=== PATIENT | female | born 1945 | race Caucasian/White ===

== ENCOUNTER 2018-04-12 07:49 | Inpatient (IN) ==
[2018-04-12] MEDS ORDERED: fentaNYL Citrate Inj 250 MCG/5 ML Ampul ONE (08:15)
[2018-04-12 08:52] LABS: Activated Partial Thrombo Time 25.7 sec (24.3-30.1); Prothrombin Time 10.5 sec (9.8-11.6)
[2018-04-12] MEDS ORDERED: fentaNYL Citrate Inj 100 MCG/2 ML Ampul ONE (11:07)
--- NOTE | 2018-04-12 11:16 | P.RAD ---
Post CT Procedure Prog Note - Pre Procedure Diagnosis (1) Mass of right lung - Post Procedure Diagnosis (1) Mass of right lung - Procedure Information Supervising Radiologist: Brice Nichols MD Anesthesia: Local, Conscious Sedation - Plan of Activity Patient to Unit: [facility] Patient condition: Good See PACS Report for procedural detail/treatment. Biopsy CT right Lung Specimen: Core Biopsy Findings: Moderate right pneumothorax post lung biopsy Plan: Chest tube placement per IR
--- NOTE | 2018-04-12 11:26 | P.RAD ---
Post Procedure Progress Note - Pre Procedure Diagnosis (1) Pneumothorax, post biopsy, right - Post Procedure Diagnosis (1) Pneumothorax, post biopsy, right - Procedure Information Procedure Date: 04/12/18 Supervising Radiologist: Juan Pablo Morales Jr, MD Estimated blood loss (mL): 0 Anesthesia: Conscious Sedation - Plan of Activity Patient to Unit: ROPU Patient Condition: Good See PACS Report for procedural detail/treatment. Drainage Procedure Fluoroscopy right Chest Tube Non-Tunneled Drainage: Pleurovac Findings: Large right sided pneumothorax following biopsy. Successful chest tube placement.
--- NOTE | 2018-04-12 11:39 | CT ---
EXAM DATE: 04/12/2018 11:10 AM EDT AGE/SEX: 72 years / Female INDICATIONS: Right lung mass CLINICAL DATA: This is the patient's initial encounter. Patient reports that signs and symptoms have been present for 1 day and indicates a pain score of 0/10. MEDICAL/SURGICAL HISTORY: Chronic obstructive pulmonary disease. Hypertension. Hysterectomy. COMPARISON: [facility], CHEST TUBE PLACEMENT W FL RT, 04/12/2018. . SEDATION TIME (min): 30 MIN BIOPSY SITE: Right lung MEDICATION(S): 4.5 midazolam (Versed) IV 225 fentanyl (Sublimaze) IV DEVICE(S): 20 gauge BARD biopsy needle 19 gauge Introducer One . . PROCEDURE: CT guided Right lung biopsy Prior to the procedure informed consent was obtained. Any appropriate prior imaging studies were rev iewed. Using automated exposure control and adjustment of the mA and/or kV according to patient size , radiation dose was kept as low as reasonably achievable to obtain optimal diagnostic quality images . DICOM format image data is available electronically for review and comparison. The site was prepped in a sterile fashion. Full sterile technique was used, including cap, mask, thu rile gloves and gown and a large sterile sheet. Hand hygiene and 2% chlorhexidine and/or betadine/al cohol prep was utilized per protocol for cutaneous antisepsis. The skin and subcutaneous tissues wer e infiltrated with local anesthetic solution. With CT guidance the previously identified target was localized. Biopsy was performed using the presc ribed needle as above. Adequate hemostasis was obtained with compression at the puncture site. Follow-up CT scan reveals no pneumothorax. Conscious sedation was performed with the prescribed dosages and duration as above in the presence of an independent trained radiology nurse to assist in the monitoring of the patient. EKG and oximetry remained stable throughout the procedure. The patient tolerated the procedure well and there were no complications. The patient was sent to Radiology Outpatient Unit in stable condition. FINDINGS: Postbiopsy scan of the right lung demonstrates a moderate-sized pneumothorax. CONCLUSION: 1. CT-guided biopsy of a right lung mass completed. 2. Moderate-sized pneumothorax noted following biopsy. 3. Chest tube placement arranged with interventional radiology. Electronically signed by: Brice Nichols MD 04/12/2018 11:38 AM EDT
[2018-04-12] MEDS ORDERED: HYDROmorphone PF Inj 2 MG/ML Vial ONE (11:55)
--- NOTE | 2018-04-12 12:18 | XR ---
EXAM DATE: 04/12/2018 12:03 PM EDT AGE/SEX: 72 years / Female INDICATIONS: Post right lung biopsy CLINICAL DATA: This is the patient's subsequent encounter. Patient reports that signs and symptoms h ave been present for 1 day and indicates a pain score of 0/10. MEDICAL/SURGICAL HISTORY: Hypertension. Chronic obstructive pulmonary disease. None. COMPARISON: [facility] [place], CT BIOPSY LUNG RIGHT, 04/12/2018. . FINDINGS: Status post placement of a right-sided chest tube. The chest tube is located in the right upper hemit horax. The previously noted pneumothorax has resolved. There is subcutaneous emphysema along the righ t chest wall. The left lung is grossly clear. CONCLUSION: Right-sided chest tube in place. No significant pneumothorax. Electronically signed by: Mark Polk MD 04/12/2018 12:17 PM EDT
--- NOTE | 2018-04-12 14:14 | IR ---
EXAM DATE: 04/12/2018 11:41 AM EDT AGE/SEX: 72 years / Female INDICATIONS: Patient presents with right side pneumothorax following lung biopsy and in need of ches t tube placement. CLINICAL DATA: This is the patient's initial encounter. Patient reports that signs and symptoms have been present for 1 day and indicates a pain score of 0/10. MEDICAL/SURGICAL HISTORY: . [id number] . Cataracts Hysterectomy COMPARISON: [facility], CHEST EXPIRATION ONLY, 04/12/2018. . FLUORO TIME (min): 1.10 IMAGE SERIES: 2 ACCESS SITE: SEDATION TIME (min): 15 MEDICATION(S): 2 mg midazolam (Versed) IV 100 mcg fentanyl (Sublimaze) IV DEVICE(S): 10 Welsh non-locking catheter 30 cm Kaye . . PROCEDURE: 1. Fluoroscopically guided chest tube placement. 2. Conscious sedation with continuous EKG and oximetry monitoring. The risks, benefits and alternatives to the procedure were explained and verbal and written consent w as obtained. The site was prepped in sterile fashion. Full sterile technique was used, including ca p, mask, sterile gloves and gown and a large sterile sheet. Hand hygiene and 2% chlorhexidine and/or betadine/alcohol prep was utilized per protocol for cutaneous antisepsis. The skin and subcutaneous tissues were infiltrated with local anesthetic solution. With fluoroscopic guidance the chest was punctured between the first and second interspace and the pr escribed catheter was placed in the lung apex. Wall suction was applied. Post procedure images demon strate satisfactory position of the tube. The catheter was sutured in place and a Percu-Stay was carli lied. Conscious sedation was performed with the prescribed dosages and duration as above in the presence of an independent trained radiology nurse to assist in the monitoring of the patient. EKG and oximetry remained stable throughout the procedure. The patient tolerated the procedure well and there were n o complications. The patient was sent to post anesthesia recovery in stable condition. CONCLUSION: 1. Uncomplicated chest tube placement as above. Electronically signed by: Juan Pablo Morales MD 04/12/2018 2:13 PM EDT
--- NOTE | 2018-04-12 15:32 | P.CONIM ---
History of Present Illness Primary Care Provider: Cristofer Carrion MD History of Present Illness: Mrs. Mcclelland is a 72-year-old female. She is at the hospital today after undergoing a lung biopsy for a lung mass. Post lung biopsy she developed a pneumothorax and has had a right-sided chest tube placed. Her primary complaint when seen his pain. No other complaints at this time. She is not nauseous. She has a past history of smoking in the past history of lupus. Other medical conditions include COPD, hypertension, and hypothyroidism. Review of Systems Constitutional: Denies body ache(s), Denies chills, Denies night sweats Eyes: Denies blind spots, Denies blurry vision, Denies change in vision Ears, Nose, Mouth, and Throat: Denies abnormal hearing, Denies bleeding gums, Denies change in voice Cardiovascular: Reports chest pain, Denies fainting, Denies rapid, pounding, or irregular heartbeat Comments: Chest pain is related to right-sided chest tube. Respiratory: Denies cough, Denies shortness of breath, Denies wheezing Gastrointestinal: Denies abdominal pain, Denies bloating, Denies bright, red blood in stools Musculoskeletal: Denies abnormal walking, Denies back pain, Denies body aches Skin/Breast: Denies rash, Denies skin pain, Denies skin ulcer Neurologic: Denies abnormal hearing, Denies abnormal movements, Denies abnormal speech PMFSH - History History Provided By: Patient - Medical History Medical History: Medical History (Last Updated 04/12/18 @ 08:42 by Yuliet Estrella RN) COPD (chronic obstructive pulmonary disease) DVT (deep venous thrombosis) HTN (hypertension) Hypothyroid Lupus - Surgical History Surgical History: Surgical History (Last Updated 04/12/18 @ 08:28 by Yuliet Estrella RN) H/O hysterectomy with oophorectomy H/O lumbar discectomy - Family History Family History: Family History (Last Updated 04/12/18 @ 15:27 by Indra Bhatia MD) Father Myocardial infarction - Travel History Recent Travel in the [place] Within the Last 8 Weeks: No Recent Travel Out of the Country Within the Last 8 Weeks: No Medications and Allergies Active Medications: Active Medications Sodium Chloride (Ns Inj) 1,000 mls @ 30 mls/hr IV.SIG .Q24H KIMBER Morphine Sulfate (Morphine Inj) 2 mg IV.PUSH Q4H PRN PRN Reason: PAIN SCALE 3 TO 5 Morphine Sulfate (Morphine Inj) 4 mg IV.PUSH Q4H PRN PRN Reason: PAIN SCALE 6 TO 10 Allergies Allergy/AdvReac Type Severity Reaction Status Date / Time No Known Allergies Allergy Verified 04/12/18 08:12 Home Medications Medication Instructions Recorded Confirmed Type amlodipine [Norvasc] 5 mg PO DAILY 04/12/18 04/12/18 History hydroxychloroquine 200 mg PO BID 04/12/18 04/12/18 History levothyroxine 50 mcg PO DAILY 04/12/18 04/12/18 History losartan-hydrochlorothiazide 1 tab PO DAILY 04/12/18 04/12/18 History Exam Vital signs: Vital Signs 04/12/18 08:05 04/12/18 11:30 04/12/18 11:45 Temperature 97.8 F 97.7 F Pulse Rate 89 95 H 90 Respiratory Rate 18 16 20 Blood Pressure 145/88 H 127/91 H 111/75 Pulse Oximetry 92 L 93 L 93 L 04/12/18 12:15 04/12/18 12:45 04/12/18 13:15 Temperature Pulse Rate 88 82 75 Respiratory Rate 20 18 20 Blood Pressure 113/78 119/80 118/75 Pulse Oximetry 95 96 94 L 04/12/18 14:06 Temperature Pulse Rate 76 Respiratory Rate 18 Blood Pressure 125/78 Pulse Oximetry 94 L Intake & Output 04/11/18 04/12/18 04/12/18 18:59 06:59 18:59 Weight 52.617 kg Other: Weight On Admission 52.617 kg Narrative: GENERAL: NAD, A&Ox3 HEAD: Normocephalic. NECK: Supple, trachea midline. No lymphadenopathy. EYES: No scleral icterus. No injection or drainage. CARDIOVASCULAR: Regular rate and rhythm without murmurs, gallops, or rubs. RESPIRATORY: Breath sounds equal bilaterally. No accessory muscle use. Limited excursion due to pain. Right-sided chest tube is present. GASTROINTESTINAL: Abdomen soft, non-tender, nondistended. MUSCULOSKELETAL: No cyanosis, or edema. SKIN: Warm and dry. NEURO: No focal neurological deficits. Results - Labs Labs: Laboratory Results - last 24 hr 04/12/18 08:20 PT 10.5 INR 1.0 APTT 25.7 - Imaging Impressions Chest Tube Insertion 04/12/18 00:00 CONCLUSION: 1. Uncomplicated chest tube placement as above. Lung Biopsy CT 04/12/18 08:28 CONCLUSION: 1. CT-guided biopsy of a right lung mass completed. 2. Moderate-sized pneumothorax noted following biopsy. 3. Chest tube placement arranged with interventional radiology. Chest X-Ray 04/12/18 11:21 CONCLUSION: Right-sided chest tube in place. No significant pneumothorax. Assessment and Plan - Assessment (1) Mass of right lung Code(s): R91.8 - Other nonspecific abnormal finding of lung field Status: Acute (2) Pneumothorax, post biopsy, right Code(s): J95.811 - Postprocedural pneumothorax Status: Acute - Plan 72-year-old female admitted secondary to pneumothorax with right-sided lung mass Right-sided pneumothorax Right sided lung mass Patient is status post biopsy Chest tube is in place Morphine IV for pain Monitor oxygenation Monitor respirations and follow-up x-ray in 1-2 days COPD No exacerbation Relatively stable at baseline Follow clinically Albuterol as needed Lupus Continue baseline treatment Hypothyroidism Continue Synthroid Follows an outpatient History of pulmonary embolism 2 Lovenox Hypertension Continue baseline treatment Follow blood pressures Adjust treatments as needed DVT Prophylaxis Lovenox
[2018-04-12] MEDS ORDERED: Morphine Inj 4 MG/ML Vial IV.PUSH PRN (15:45)
[2018-04-12] MEDS: Morphine Inj 4 MG/ML Vial IV.PUSH PRN ×3 (16:15→23:55)
[2018-04-12] MEDS: Sod Chloride 0.9% Inj 1,000 ML IV.SIG SCH (16:17)
[2018-04-12] MEDS: Hydroxychloroquine 200 MG Tablet PO SCH (20:00)
--- NOTE | 2018-04-13 01:46 | MB ---
cc: Werner Kang MD DATE: 04/12/2018 REASON FOR CONSULTATION: The patient with bilateral pulmonary lesions, who was brought to interventional radiology for biopsy of the lung lesion and subsequently has developed pneumothorax. She is being admitted to the hospital for observation. HISTORY OF PRESENT ILLNESS: This is a 72-year-old female who was seen in the oncology clinic approximately 2 weeks ago for evaluation of bilateral lung lesions. She has a history of tobacco abuse with greater than [id number], COPD, hypertension, hypothyroidism. She had undergone a CT scan of the chest with contrast on 03/11/2018 and was found to have a lobulated nodule in the right upper lobe, which was approximately 2 x 1.9 cm. There was a second spiculated lesion in the superior segment of the left lower lobe, which was suspicious for bronchogenic carcinoma. There were additional pleural based nodular densities in the right upper lobe superiorly and measured 12.5 mm. She underwent PET scan on 03/09/2018, which revealed hypermetabolic 1.8 cm lobulated nodule in the right upper lobe, which was concerning for malignancy. There was another hypermetabolic 1.2 cm spiculated nodule in the superior segment of the left lower lobe. These lesions were concerning for primary bronchogenic carcinoma. The patient was referred to interventional radiology for a CT-guided biopsy of the right upper lung lesion. She subsequently developed a pneumothorax and right-sided chest tube was placed and the patient was admitted to the hospital. The patient is currently having significant pain with expiration and inspiration. The RN was instructed to give 2 mg of IV morphine to the patient. She has not had any hemoptysis. Her oxygen saturations have been in the mid to high 90s. REVIEW OF SYSTEMS: A comprehensive review of system was completed, which is negative except as described in the HPI. PAST MEDICAL HISTORY: Reviewed and is noncontributory to this admission. PAST MEDICAL HISTORY: COPD, bilateral lung lesions, history of DVT, hypertension, hypothyroidism, lupus. PAST SURGICAL HISTORY: History of hysterectomy with oophorectomy, history of lumbar discectomy. SOCIAL HISTORY: She is an ex-smoker. She does not drink alcohol. No illicit drug use. PHYSICAL EXAMINATION: VITAL SIGNS: Blood pressure is 111/75, pulse is in the 90s, temperature is 97.8, O2 saturations are 94% on room air. GENERAL: Well-developed, well-nourished female, in mild distress. HEENT: Pupils equal, round, reactive to light. EOMI. No oral thrush. No lesion. NECK: Supple. No JVD. No bruits. No lymphadenopathy. CHEST: Clear to auscultation bilaterally. CARDIAC: S1, S2. Regular rate and rhythm. ABDOMEN: Soft, nontender, nondistended. Bowel sounds are present. EXTREMITIES: Without any edema, erythema or cyanosis. SKIN: Without any petechia, lesion or bruises. NEUROLOGIC: No focal deficits. PSYCHIATRIC: Mood and affect is appropriate. LABORATORY DATA: PT 10.5, INR 1, PTT 25.7. Additional labs are not available. ASSESSMENT AND PLAN: This is a 72-year-old female who has bilateral lung lesions which are concerning for metastatic bronchogenic carcinoma. She has undergone right-sided lung biopsy. Subsequently, she developed pneumothorax. She was admitted to the hospital for observation. 1. Right-sided pneumothorax after she had right-sided lung biopsy. She has a chest tube in place. I would consult pulmonary for chest tube management. We will obtain daily chest x-rays. Closely monitor O2 saturations. Continue IV morphine for pain control. 2. Bilateral lung lesions concerning for bronchogenic carcinoma. Pathology results are pending. 3. History of chronic obstructive pulmonary disease. 4. History of lupus. 5. History of hypothyroidism. 6. History of pulmonary embolism. She is currently on Lovenox. Thank you for allowing me to participate in the care of this patient. I will continue to follow this patient along. MD TATUM Bender/ROSELINE , 01:16 AM , 01:44 AM
[2018-04-13] MEDS: Morphine Inj 4 MG/ML Vial IV.PUSH PRN (04:02)
[2018-04-13] MEDS: Levothyroxine 50 MCG Tablet PO SCH (06:34)
[2018-04-13] MEDS: amLODIPine 5 MG Tablet PO SCH (09:27)
[2018-04-13] MEDS: Hydroxychloroquine 200 MG Tablet PO SCH ×2 (09:27→20:45)
[2018-04-13] MEDS: Enoxaparin Inj 40 MG/0.4 ML Syringe SQ SCH (09:27)
--- NOTE | 2018-04-13 09:34 | XR ---
EXAM DATE: 04/13/2018 9:20 AM EDT AGE/SEX: 72 years / Female INDICATIONS: Evaluate pneumothorax. CLINICAL DATA: This is the patient's subsequent encounter. Patient reports that signs and symptoms h ave been present for 2 days and indicates a pain score of 5/10. MEDICAL/SURGICAL HISTORY: . HTN COPD Lupus DVTPE Hypothyroid . . Rt side chest tube. Cataracts Hysterectomy COMPARISON: [facility] [place], [place]ST EXPIRATION ONLY, 04/12/2018. . FINDINGS: A single portable frontal view the chest shows a right-sided thoracostomy tube in good position. No p neumothorax. Subcutaneous air overlies the right chest. Heart is normal size. Lungs are clear. No eff usions. CONCLUSION: No pneumothorax. Right-sided chest tube. Electronically signed by: Juan Pablo Morales MD 04/13/2018 9:33 AM EDT
--- NOTE | 2018-04-13 11:00 | P.PNIM ---
Subjective Interval history: Pain control is improved. Patient is vomiting this morning. Etiology for the vomiting is likely related to metoprolol. No other complaints. Physical Exam Vital signs: Vital Signs 04/12/18 11:30 04/12/18 11:45 04/12/18 12:15 Temperature 97.7 F Pulse Rate 95 H 90 88 Respiratory Rate 16 20 20 Blood Pressure 127/91 H 111/75 113/78 Pulse Oximetry 93 L 93 L 95 04/12/18 12:45 04/12/18 13:15 04/12/18 14:06 Temperature Pulse Rate 82 75 76 Respiratory Rate 18 20 18 Blood Pressure 119/80 118/75 125/78 Pulse Oximetry 96 94 L 94 L 04/12/18 16:00 04/12/18 20:00 04/12/18 20:03 Temperature 97.3 F L 97.4 F L Pulse Rate 79 77 Respiratory Rate 18 18 18 Blood Pressure 132/72 133/71 Pulse Oximetry 95 91 L 04/13/18 01:00 04/13/18 05:00 04/13/18 08:00 Temperature 98.1 F 97.8 F 98.2 F Pulse Rate 70 83 69 Respiratory Rate 18 18 18 Blood Pressure 128/70 139/71 153/74 H Pulse Oximetry 94 L 95 96 Intake & Output 04/12/18 04/13/18 04/13/18 18:59 06:59 18:59 Output Total 0 / 0 6 / 6 Balance 0 / 0 -6 / -6 Weight 52.617 kg 51.9 kg Output: Urine 2 / 2 Chest Tube Drainage 0 / 0 4 / 4 #1 Right Upper 0 / 0 4 / 4 Other: # Voids 1 Weight On Admission 52.617 kg Narrative: GENERAL: NAD, A&Ox3 HEAD: Normocephalic. NECK: Supple, trachea midline. No lymphadenopathy. EYES: No scleral icterus. No injection or drainage. CARDIOVASCULAR: Regular rate and rhythm without murmurs, gallops, or rubs. RESPIRATORY: Breath sounds equal bilaterally. No accessory muscle use. Right- sided chest tube in place. GASTROINTESTINAL: Abdomen soft, non-tender, nondistended. MUSCULOSKELETAL: No cyanosis, or edema. SKIN: Warm and dry. NEURO: No focal neurological deficits. Results - Imaging Impressions Chest Tube Insertion 04/12/18 00:00 CONCLUSION: 1. Uncomplicated chest tube placement as above. Lung Biopsy CT 04/12/18 08:28 CONCLUSION: 1. CT-guided biopsy of a right lung mass completed. 2. Moderate-sized pneumothorax noted following biopsy. 3. Chest tube placement arranged with interventional radiology. Chest X-Ray 04/12/18 11:21 CONCLUSION: Right-sided chest tube in place. No significant pneumothorax. Chest X-Ray 04/13/18 08:00 CONCLUSION: No pneumothorax. Right-sided chest tube. Assessment and Plan - Assessment (1) Mass of right lung Code(s): R91.8 - Other nonspecific abnormal finding of lung field Status: Acute (2) Pneumothorax, post biopsy, right Code(s): J95.811 - Postprocedural pneumothorax Status: Acute - Plan 72-year-old female admitted secondary to pneumothorax with right-sided lung mass Respiratory status is stable. Pain is controlled. Nausea vomiting present and likely related to medications. Nausea Vomiting Change morphine to Dilaudid. Start Reglan as needed for nausea Right-sided pneumothorax Right sided lung mass Patient is status post biopsy Chest tube is in place Dilaudid IV for pain Monitor oxygenation Monitor respirations and follow-up x-ray in 1-2 days COPD No exacerbation Relatively stable at baseline Follow clinically Albuterol as needed Lupus No exacerbation continue baseline treatment Hypothyroidism Continue Synthroid Follows an outpatient History of pulmonary embolism 2 Lovenox Hypertension Continue baseline treatment Follow blood pressures Adjust treatments as needed DVT Prophylaxis Lovenox
[2018-04-13 11:31] LABS: Baso % (Auto) 0.6 % (0.0-2.0); Eos % (Auto) 0.3 % (0.0-4.0); Hematocrit 39.1 % (35.0-46.0); Hemoglobin 13.1 gm/dL (11.6-15.3); Lymph # (Auto) 0.9 th/mm3 (1.0-4.8); Lymph % (Auto) 17.1 % (9.0-44.0); Mean Corpuscular HGB Conc 33.5 % (32.0-36.0); Mean Corpuscular Hemoglobin 28.8 pg (27.0-34.0); Mean Platelet Volume 7.5 fL (7.0-11.0); Mono # (Auto) 0.4 th/mm3 (0.0-0.9); Mono % (Auto) 7.6 % (0.0-8.0); Neut # (Auto) 3.8 th/mm3 (1.8-7.7); Neut % (Auto) 74.4 % (16.0-70.0); Platelet Count 304 th/mm3 (150-450); Red Blood Count 4.54 mil/mm3 (4.00-5.30); White Blood Count 5.1 th/mm3 (4.0-11.0)
[2018-04-13 12:00] LABS: Alanine Aminotransferase 15 U/L (10-53); Albumin 3.7 g/dL (3.4-5.0); Anion Gap 11 meq/L (5-15); Aspartate Aminotransferase 13 U/L (15-37); Blood Urea Nitrogen 9 mg/dL (7-18); Calcium 9.1 mg/dL (8.5-10.1); Carbon Dioxide 27.3 meq/L (21.0-32.0); Chloride 100 meq/L (98-107); Glomerular Filtration Rate Greater Than 89 mL/min (>89); Glucose,Random 83 mg/dL (74-106); Sodium 138 meq/L (136-145)
[2018-04-13] MEDS ORDERED: HYDROmorphone PF Inj 0.5 MG/0.5 ML Syringe IV.PUSH PRN (12:00)
[2018-04-13 12:03] LABS: Alkaline Phosphatase 92 U/L (45-117); Total Protein 6.4 g/dL (6.4-8.2)
[2018-04-13] MEDS: HYDROmorphone PF Inj 2 MG/ML Vial IV.PUSH PRN (18:21)
[2018-04-13] MEDS: Sod Chloride 0.9% Inj 1,000 ML IV.SIG SCH (20:42)
[2018-04-14] MEDS: HYDROmorphone PF Inj 2 MG/ML Vial IV.PUSH PRN (01:41)
[2018-04-14 06:39] LABS: Baso % (Auto) 0.5 % (0.0-2.0); Eos % (Auto) 0.6 % (0.0-4.0); Hematocrit 39.7 % (35.0-46.0); Hemoglobin 13.5 gm/dL (11.6-15.3); Lymph # (Auto) 1.3 th/mm3 (1.0-4.8); Mean Corpuscular Hemoglobin 28.8 pg (27.0-34.0); Mean Corpuscular Volume 84.8 fL (80.0-100.0); Mean Platelet Volume 7.5 fL (7.0-11.0); Mono # (Auto) 0.5 th/mm3 (0.0-0.9); Mono % (Auto) 8.9 % (0.0-8.0); Neut # (Auto) 3.8 th/mm3 (1.8-7.7); Platelet Count 293 th/mm3 (150-450); Red Blood Count 4.68 mil/mm3 (4.00-5.30); White Blood Count 5.7 th/mm3 (4.0-11.0)
[2018-04-14 06:56] LABS: Alanine Aminotransferase 13 U/L (10-53); Albumin 3.5 g/dL (3.4-5.0); Anion Gap 13 meq/L (5-15); Aspartate Aminotransferase 18 U/L (15-37); Blood Urea Nitrogen 9 mg/dL (7-18); Calcium 8.7 mg/dL (8.5-10.1); Carbon Dioxide 23.4 meq/L (21.0-32.0); Chloride 102 meq/L (98-107); Glomerular Filtration Rate Greater Than 89 mL/min (>89); Glucose,Random 83 mg/dL (74-106); Potassium 3.3 meq/L (3.5-5.1)
[2018-04-14 06:58] LABS: Sodium 138 meq/L (136-145)
[2018-04-14 06:59] LABS: Alkaline Phosphatase 87 U/L (45-117); Total Protein 6.5 g/dL (6.4-8.2)
[2018-04-14] MEDS: Levothyroxine 50 MCG Tablet PO SCH (07:00)
[2018-04-14] MEDS: amLODIPine 5 MG Tablet PO SCH (09:08)
[2018-04-14] MEDS: Hydroxychloroquine 200 MG Tablet PO SCH (09:08)
[2018-04-14] MEDS: Enoxaparin Inj 40 MG/0.4 ML Syringe SQ SCH (09:08)
--- NOTE | 2018-04-14 09:46 | P.PN ---
Subjective Interval history: ALERT CHEST TUBE IN PLACE, NO LEAK NO SOB Physical Exam Vital signs: Vital Signs 04/13/18 12:00 04/13/18 16:00 04/13/18 20:00 Temperature 98.4 F 98.7 F 98 F Pulse Rate 88 92 H 87 Respiratory Rate 18 18 18 Blood Pressure 157/79 H 159/79 H 180/86 H Pulse Oximetry 96 95 92 L 04/13/18 23:30 04/14/18 00:00 04/14/18 01:46 Temperature 98.3 F Pulse Rate 84 Respiratory Rate 18 18 Blood Pressure 149/83 H Pulse Oximetry 93 L 04/14/18 03:18 04/14/18 04:00 Temperature 98 F Pulse Rate 72 Respiratory Rate 16 18 Blood Pressure 164/81 H Pulse Oximetry 95 Intake & Output 04/13/18 04/14/18 04/14/18 18:59 06:59 18:59 Output Total Balance -6 / -6 - Weight 51.9 kg 52.6 kg Output: Urine 2 / 2 Chest Tube Drainage #1 Right Upper Other: # Voids 2 Narrative: GENERAL: NAD, A&Ox3 HEAD: Normocephalic. NECK: Supple, trachea midline. No lymphadenopathy. EYES: No scleral icterus. No injection or drainage. CARDIOVASCULAR: Regular rate and rhythm without murmurs, gallops, or rubs. RESPIRATORY: Breath sounds equal bilaterally. No accessory muscle use. Right- sided chest tube in place. GASTROINTESTINAL: Abdomen soft, non-tender, nondistended. MUSCULOSKELETAL: No cyanosis, or edema. SKIN: Warm and dry. NEURO: No focal neurological deficits. Results - Labs CBC & Chem 7: 04/14/18 05:30 04/14/18 05:30 Laboratory Results - last 24 hr 04/13/18 04/13/18 04/14/18 10:35 10:35 05:30 WBC 5.1 5.7 RBC 4.54 4.68 Hgb 13.1 13.5 Hct 39.1 39.7 MCV 86.0 84.8 MCH 28.8 28.8 MCHC 33.5 34.0 RDW 15.0 15.0 Plt Count 304 293 MPV 7.5 7.5 Neut % (Auto) 74.4 H 67.0 Lymph % (Auto) 17.1 23.0 Mccracken % (Auto) 7.6 8.9 H Eos % (Auto) 0.3 0.6 Baso % (Auto) 0.6 0.5 Neut # (Auto) 3.8 3.8 Lymph # (Auto) 0.9 L 1.3 Mccracken # (Auto) 0.4 0.5 Eos # (Auto) 0.0 0.0 Baso # (Auto) 0.0 0.0 WBC Differential . . Differential Comment Auto diff final Auto diff final Sodium 138 Potassium 3.0 L Chloride 100 Carbon Dioxide 27.3 Anion Gap 11 BUN 9 Creatinine 0.65 Estimated GFR Greater than 89 Random Glucose 83 Calcium 9.1 Total Bilirubin 0.6 AST 13 L ALT 15 Alkaline Phosphatase 92 Total Protein 6.4 Albumin 3.7 04/14/18 05:30 WBC RBC Hgb Hct MCV MCH MCHC RDW Plt Count MPV Neut % (Auto) Lymph % (Auto) Mccracken % (Auto) Eos % (Auto) Baso % (Auto) Neut # (Auto) Lymph # (Auto) Mccracken # (Auto) Eos # (Auto) Baso # (Auto) WBC Differential Differential Comment Sodium 138 Potassium 3.3 L Chloride 102 Carbon Dioxide 23.4 Anion Gap 13 BUN 9 Creatinine 0.65 Estimated GFR Greater than 89 Random Glucose 83 Calcium 8.7 Total Bilirubin 0.6 AST 18 ALT 13 Alkaline Phosphatase 87 Total Protein 6.5 Albumin 3.5 Assessment and Plan - Plan LUNG MASS PNX/POST NEEDLE BX PLAN CLAMP TUBE CHECK CXRAY POST CLAMP , REMOVE IF POSSIBLE
--- NOTE | 2018-04-14 12:00 | P.PNIM ---
Subjective Interval history: Nausea/vomiting has resolved. Potential for chest tube removal today. Repeat imaging pending. If chest tube is removed we will plan for a follow-up x-ray clearance based on that for discharge this afternoon if possible. Physical Exam Vital signs: Vital Signs 04/13/18 12:00 04/13/18 16:00 04/13/18 20:00 Temperature 98.4 F 98.7 F 98 F Pulse Rate 88 92 H 87 Respiratory Rate 18 18 18 Blood Pressure 157/79 H 159/79 H 180/86 H Pulse Oximetry 96 95 92 L 04/13/18 23:30 04/14/18 00:00 04/14/18 01:46 Temperature 98.3 F Pulse Rate 84 Respiratory Rate 18 18 Blood Pressure 149/83 H Pulse Oximetry 93 L 04/14/18 03:18 04/14/18 04:00 Temperature 98 F Pulse Rate 72 Respiratory Rate 16 18 Blood Pressure 164/81 H Pulse Oximetry 95 Intake & Output 04/13/18 04/14/18 04/14/18 18:59 06:59 18:59 Output Total Balance -6 / -6 - Weight 51.9 kg 52.6 kg Output: Urine 2 / 2 Chest Tube Drainage #1 Right Upper Other: # Voids 2 Narrative: GENERAL: NAD, A&Ox3 HEAD: Normocephalic. NECK: Supple, trachea midline. No lymphadenopathy. EYES: No scleral icterus. No injection or drainage. CARDIOVASCULAR: Regular rate and rhythm without murmurs, gallops, or rubs. RESPIRATORY: Breath sounds equal bilaterally. No accessory muscle use. GASTROINTESTINAL: Abdomen soft, non-tender, nondistended. MUSCULOSKELETAL: No cyanosis, or edema. Right-sided chest tube is in place. SKIN: Warm and dry. NEURO: No focal neurological deficits. Results - Labs CBC & Chem 7: 04/14/18 05:30 04/14/18 05:30 Laboratory Results - last 24 hr 04/13/18 04/14/18 04/14/18 10:35 05:30 05:30 WBC 5.7 RBC 4.68 Hgb 13.5 Hct 39.7 MCV 84.8 MCH 28.8 MCHC 34.0 RDW 15.0 Plt Count 293 MPV 7.5 Neut % (Auto) 67.0 Lymph % (Auto) 23.0 [place] % (Auto) 8.9 H Eos % (Auto) 0.6 Baso % (Auto) 0.5 Neut # (Auto) 3.8 Lymph # (Auto) 1.3 [place] # (Auto) 0.5 Eos # (Auto) 0.0 Baso # (Auto) 0.0 WBC Differential . Differential Comment Auto diff final Sodium 138 138 Potassium 3.0 L 3.3 L Chloride 100 102 Carbon Dioxide 27.3 23.4 Anion Gap 11 13 BUN 9 9 Creatinine 0.65 0.65 Estimated GFR Greater than 89 Greater than 89 Random Glucose 83 83 Calcium 9.1 8.7 Total Bilirubin 0.6 0.6 AST 13 L 18 ALT 15 13 Alkaline Phosphatase 92 87 Total Protein 6.4 6.5 Albumin 3.7 3.5 Assessment and Plan - Assessment (1) Mass of right lung Code(s): R91.8 - Other nonspecific abnormal finding of lung field Status: Acute (2) Pneumothorax, post biopsy, right Code(s): J95.811 - Postprocedural pneumothorax Status: Acute - Plan 72-year-old female admitted secondary to pneumothorax with right-sided lung mass Respiratory status continues to be stable. Nausea and vomiting have resolved. Pain is controlled. Plan for removal of chest tube today. Potential for discharge this afternoon if delayed follow-up x-ray shows stability post chest tube removal. Nausea Vomiting Change morphine to Dilaudid. Start Reglan as needed for nausea Right-sided pneumothorax Right sided lung mass Patient is status post biopsy Chest tube is in place Dilaudid IV for pain Monitor oxygenation COPD No exacerbation Relatively stable at baseline Follow clinically Albuterol as needed Lupus No exacerbation continue baseline treatment Hypothyroidism Continue Synthroid Follows an outpatient History of pulmonary embolism 2 Lovenox Hypertension Continue baseline treatment Follow blood pressures Adjust treatments as needed DVT Prophylaxis Lovenox
--- NOTE | 2018-04-14 12:10 | XR ---
EXAM DATE: 04/14/2018 12:02 PM EDT AGE/SEX: 72 years / Female INDICATIONS: Evaluate pneumothorax CLINICAL DATA: This is the patient's subsequent encounter. Patient reports that signs and symptoms h ave been present for 3 days and indicates a pain score of 0/10. MEDICAL/SURGICAL HISTORY: . HTN COPD Lupus DVT and PE Hypothyroid . . Rt side chest tube. . C ataracts Hysterectomy [place] [facility] [place] . FINDINGS: Right-sided chest tube is again identified. The right lung appears well expanded without evidence of pneumothorax. Small subcutaneous emphysema remains evident along the right chest wall. Chest is otherwise stable CONCLUSION: No evidence of pneumothorax Right-sided chest tube remains in place. Electronically signed by: Brice Nichols MD 04/14/2018 12:09 PM EDT
[2018-04-14 14:14] VITALS: BP 145/78; PULSE 87; RESP 20; TEMP 98.4; O2SAT 92
--- NOTE | 2018-04-14 14:47 | XR ---
EXAM DATE: 04/14/2018 1:50 PM EDT AGE/SEX: 72 years / Female INDICATIONS: Evaluate pneumothorax. CLINICAL DATA: This is the patient's initial encounter. Patient reports that signs and symptoms have been present for 1 day and indicates a pain score of 0/10. MEDICAL/SURGICAL HISTORY: Chronic obstructive pulmonary disease. Hypertension. Lupus. DVT and PE. Hypothyroid. . Right side chest tube. Cataracts Hysterectomy. COMPARISON: [facility] [place], 04/14/2018. . FINDINGS: Right-sided chest tube has been removed. Right lung remains well aerated without evidence of pneumoth orax. Right upper lobe pulmonary nodule is again noted. Changes of COPD are identified. CONCLUSION: No evidence of right-sided pneumothorax following chest tube removal. COPD Right lung nodule Electronically signed by: Brice Nichols MD 04/14/2018 2:45 PM EDT
--- NOTE | 2018-04-14 14:51 | P.DS ---
Date of admission: 04/14/18 11:53 Primary care physician: Cristofer Carrion MD Brief History from admission: Admit due to pneumothorax after lung mass biopsy. DS: Diagnosis - Discharge Diagnosis (1) Mass of right lung Status: Acute (2) Pneumothorax, post biopsy, right Status: Acute DS: Summary Hospital Course: Mrs. Pleitez is a 72 year old female. She was originally in the hospital to have a biopsy of a right lung mass. After biopsy she had a pneumothorax and subsequently had a placement of a chest tube. The chest tube remain in place for 2 days and is removed today. Follow-up imaging shows no further collapse of lung or evidence of leak. Patient is medically stable and cleared for discharge home today. She will resume all prior home medications. - Time Spent with Patient Total time spent providing and/or coordinating discharge services: Exam Vital signs: Vital Signs 04/13/18 16:00 04/13/18 20:00 04/13/18 23:30 Temperature 98.7 F 98 F Pulse Rate 92 H 87 Respiratory Rate 18 18 18 Blood Pressure 159/79 H 180/86 H Pulse Oximetry 95 92 L 04/14/18 00:00 04/14/18 01:46 04/14/18 03:18 Temperature 98.3 F Pulse Rate 84 Respiratory Rate 18 16 Blood Pressure 149/83 H Pulse Oximetry 93 L 04/14/18 04:00 04/14/18 08:00 04/14/18 12:00 Temperature 98 F 98.7 F 98.4 F Pulse Rate 72 78 87 Respiratory Rate 18 20 20 Blood Pressure 164/81 H 168/90 H 145/78 H Pulse Oximetry 95 95 92 L Intake & Output 04/13/18 04/14/18 04/14/18 18:59 06:59 18:59 Output Total 6 6 Balance -6 / -6 - - Weight 51.9 kg 52.6 kg Output: Urine 2 / 2 Chest Tube Drainage / 4 #1 Right Upper Other: # Voids 2 Results Procedures completed during hospitalization: lung mass biopsy. chest tube placement and removal. Labs on day of discharge: Labs from last 24 hours 04/14/18 04/14/18 05:30 05:30 WBC 5.7 RBC 4.68 Hgb 13.5 Hct 39.7 MCV 84.8 MCH 28.8 MCHC 34.0 RDW 15.0 Plt Count 293 MPV 7.5 Neut % (Auto) 67.0 Lymph % (Auto) 23.0 [place] % (Auto) 8.9 H Eos % (Auto) 0.6 Baso % (Auto) 0.5 Neut # (Auto) 3.8 Lymph # (Auto) 1.3 [place] # (Auto) 0.5 Eos # (Auto) 0.0 Baso # (Auto) 0.0 WBC Differential . Differential Comment Auto diff final Sodium 138 Potassium 3.3 L Chloride 102 Carbon Dioxide 23.4 Anion Gap 13 BUN 9 Creatinine 0.65 Estimated GFR Greater than 89 Random Glucose 83 Calcium 8.7 Total Bilirubin 0.6 AST 18 ALT 13 Alkaline Phosphatase 87 Total Protein 6.5 Albumin 3.5 - Impressions ITS Impressions Chest Tube Insertion 04/12/18 00:00 CONCLUSION: 1. Uncomplicated chest tube placement as above. Lung Biopsy CT 04/12/18 08:28 CONCLUSION: 1. CT-guided biopsy of a right lung mass completed. 2. Moderate-sized pneumothorax noted following biopsy. 3. Chest tube placement arranged with interventional radiology. Chest X-Ray 04/14/18 13:30 CONCLUSION: No evidence of right-sided pneumothorax following chest tube removal. COPD Right lung nodule Discharge Plan - Discharge Disposition Patient Disposition: 01 Discharge Home - Discharge Condition Condition: Stable - Discharge Order Discharge Orders: Discharge Order (Routine); Ordered 04/14/18 Ordered By: Indra Bhatia - Discharge Details Anticipated Discharge Date: 04/14/18 - Physicians Team Primary Care Provider: Cristofer Carrion Attending Provider: Indra Bhatia Other Providers: Юлия Redman MD - Rxs /Orders / Referrals /Forms Prescriptions: Continue amlodipine [Norvasc] 5 mg Tablet 5 mg PO DAILY hydroxychloroquine 200 mg Tablet 200 mg PO BID levothyroxine 50 mcg Capsule 50 mcg PO DAILY losartan-hydrochlorothiazide 50-12.5 mg Tablet 1 tab PO DAILY Referrals: Cristofer Carrion MD [Primary Care Provider] - See Instructions
--- NOTE | 2018-04-21 08:13 | IR ---
EXAM DATE: 04/14/2018 1:38 PM EDT AGE/SEX: 72 years / Female INDICATIONS: CLINICAL DATA: This is the patient's encounter. Patient reports that signs and symptoms have been pr esent for and indicates a pain score of . MEDICAL/SURGICAL HISTORY: COMPARISON: [facility], CHEST 1V SINGLE AP, 04/14/2018. . DEVICE(S): PROCEDURE: 1. Chest tube removal. Using aseptic technique the previously placed chest tube was easily removed in one piece and Vaseline gauze and sterile dressing was applied. Chest radiograph is to be obtained. CONCLUSION: 1. Uncomplicated chest tube removal. Electronically signed by: Juan Pablo Morales MD 04/21/2018 8:11 AM EDT
--- NOTE | 2018-04-27 16:10 | IR ---
This report includes an Addendum and supersedes previous reports for this exam. The 10 [place] nonlocking [place] catheter was removed. The chest tube was no longer needed. Electronically signed by: Juan Pablo Morales MD 04/26/2018 4:47 PM EDT Addendum Dictated By: Jr. Juan Pablo Morales MD EXAM DATE: 04/14/2018 1:38 PM EDT AGE/SEX: 72 years / Female INDICATIONS: CLINICAL DATA: This is the patient's encounter. Patient reports that signs and symptoms have been present for and indicates a pain score of . MEDICAL/SURGICAL HISTORY: COMPARISON: [facility], CHEST 1V SINGLE AP, 04/14/2018. . DEVICE(S): PROCEDURE: 1. Chest tube removal. Using aseptic technique the previously placed chest tube was easily removed in one piece and Vaseline gauze and sterile dressing was applied. Chest radiograph is to be obtained. CONCLUSION: 1. Uncomplicated chest tube removal. Electronically signed by: Juan Pablo Morales MD 04/21/2018 8:11 AM EDT [facility]
== END 2018-04-14 15:22 | disposition home or self-care (01) ==
LOC: HRAD 07:49 → HRIP 07:54 → N05 14:35
PROVIDERS: ADMIT Hospitalist; ATTEND Hospitalist

== ENCOUNTER 2018-05-31 11:44 | Inpatient (IN) ==
[2018-05-31] MEDS ORDERED: Sod Chloride 0.9% Inj 1,000 ML IV.SIG SCH (13:30)
[2018-05-31 14:07] LABS: Baso % (Auto) 0.4 % (0.0-2.0); Eos % (Auto) 0.4 % (0.0-4.0); Hematocrit 39.4 % (35.0-46.0); Hemoglobin 13.6 gm/dL (11.6-15.3); Lymph # (Auto) 1.3 th/mm3 (1.0-4.8); Lymph % (Auto) 13.5 % (9.0-44.0); Mean Corpuscular HGB Conc 34.5 % (32.0-36.0); Mean Corpuscular Hemoglobin 29.5 pg (27.0-34.0); Mean Corpuscular Volume 85.7 fL (80.0-100.0); Mean Platelet Volume 7.6 fL (7.0-11.0); Mono % (Auto) 10.7 % (0.0-8.0); Neut # (Auto) 7.3 th/mm3 (1.8-7.7); Platelet Count 271 th/mm3 (150-450); Red Cell Distribution Width 16.6 % (11.6-17.2); White Blood Count 9.7 th/mm3 (4.0-11.0)
--- NOTE | 2018-05-31 14:15 | ED ---
HPI General Chief complaint: Nausea/Vomiting/Diarrhea Stated complaint: vomitting Time Seen by Provider: 05/31/18 12:04 Source: patient and family Mode of arrival: ambulatory Limitations: no limitations History of Present Illness HPI Narrative: 72-year-old female with a history of lung cancer to presents to the ED for evaluation of nausea vomiting diarrhea for about 10 days now. Per patient nausea vomiting diarrhea having almost continuous for the past 10 days. Per patient her stools are greenish liquidy. Denies any chest pain or shortness of breath but states having some pain in her abdomen especially on the lower abdomen and upper abdomen. Per patient she is been thinking her Zofran prescribed by her doctor as well as potassium which was prescribed by her doctor Dr. Kang after she was evaluated about 10 days ago when she was found to have the symptoms. She was told to hydrate orally but the family states that her symptoms have not improved at all and she continues to lose fluids and cannot keep anything down. Per patient she does a little dry heaving. She has not had any chemo or radiation for the past 5 weeks. She last had chemo about 5 weeks ago and had a combination of 3 different medications. She was given fluids and IV medications about [address] Kang. Apparently the try to reach Dr. Kang as her symptoms continue on the recommended to the patient comes here for evaluation. Denies any blood on the stool or vomit. Pain per patient is 6 out of 10. Related Data Home Medications Medication Instructions Recorded Confirmed amlodipine [Norvasc] 5 mg PO DAILY 04/12/18 05/31/18 hydroxychloroquine 200 mg PO BID 04/12/18 05/31/18 levothyroxine 50 mcg PO DAILY 04/12/18 05/31/18 losartan-hydrochlorothiazide 1 tab PO DAILY 04/12/18 05/31/18 ondansetron HCl 8 mg PO TID PRN 04/27/18 05/31/18 pantoprazole 40 mg PO DAILY 04/27/18 05/31/18 cholecalciferol (vitamin D3) 1,000 unit PO DAILY 05/31/18 05/31/18 [Vitamin D3] cyanocobalamin (vitamin B-12) 1,000 mcg PO DAILY 05/31/18 05/31/18 [Vitamin B-12] Allergies Allergy/AdvReac Type Severity Reaction Status Date / Time No Known Allergies Allergy Verified 04/12/18 08:12 Review of Systems ROS: all other systems reviewed are negative PMFSH History History Provided By: Patient and Family Member Medical History Medical History Cataract fragments in eye following surgery (Acute) Chemotherapy induced nausea and vomiting (Acute) GERD (gastroesophageal reflux disease) (Acute) Lung cancer (Acute) COPD (chronic obstructive pulmonary disease) (Acute) DVT (deep venous thrombosis) (Acute) HTN (hypertension) (Acute) Hypothyroid (Acute) Lupus (Acute) Surgical History Surgical History H/O foot surgery (Acute) Hx of tonsillectomy (Acute) H/O hysterectomy with oophorectomy (Acute) H/O lumbar discectomy (Acute) Family History Family History Father Myocardial infarction Social History Social History Substance History: No History of Abuse Second Hand Smoke Exposure: No Smoking Status: Former smoker How Often Do You Have a Drink Containing Alcohol: Never Recent Travel in [facility] within the Last 8 Weeks: No Recent Out of Country Travel within the Last 8 Weeks: No Exam Narrative Exam Narrative: GENERAL: Groomed but anorexic noted SKIN: Focused skin assessment warm/dry. HEAD: Atraumatic. Normocephalic. EYES: Pupils equal and round. No scleral icterus. No injection or drainage. ENT: No nasal bleeding or discharge. Mucous membranes pink and moist. Tongue is midline. No uvula deviation. NECK: Trachea midline. No JVD. CARDIOVASCULAR: Regular rate and rhythm. No murmur appreciated. RESPIRATORY: No accessory muscle use. Clear to auscultation. Breath sounds equal bilaterally. GASTROINTESTINAL: Abdomen soft, non-tender, nondistended. Hepatic and splenic margins not palpable. MUSCULOSKELETAL: No obvious deformities. No clubbing. No cyanosis. No edema. Full range of motion of the upper and lower extremities bilaterally. 2+ pulses bilaterally. NEUROLOGICAL: Awake and alert. No obvious cranial nerve deficits. Motor grossly within normal limits. Normal speech. PSYCHIATRIC: Appropriate mood and affect; insight and judgment normal. Course Initial Documented Vital Signs Temperature 97.3 F L 05/31/18 11:55 Pulse Rate 70 05/31/18 11:55 Respiratory Rate 17 05/31/18 11:55 Blood Pressure 157/82 H 05/31/18 11:55 Pulse Oximetry 96 05/31/18 11:55 Last Documented Vital Signs Temperature 97.3 F L 05/31/18 11:55 Pulse Rate 62 05/31/18 14:00 Respiratory Rate 18 05/31/18 14:00 Blood Pressure 141/78 H 05/31/18 14:00 Pulse Oximetry 96 05/31/18 14:00 Medical Decision Making MDM Narrative Medical decision making narrative: 72-year-old female that presents to the ED for evaluation of nausea vomiting diarrhea and abdominal pain. Patient was properly examined and was found to have signs and symptoms consistent with appears to be nausea vomiting diarrhea possible side effects from medications versus infectious etiology. Labs and imaging order. IV fluids and Reglan given. Labs and imaging did show what appears to be hypokalemia. Otherwise unremarkable exam. CT was negative for acute disease. Patient states feeling nauseous. Patient was given IV and p.o. potassium the patient still feeling nauseous. Because the patient's symptoms and potassium low would recommend admission for further evaluation and treatment. Patient agrees with this. Case discussed with my attending Dr. Barth who agrees with this. Case discussed with Dr. Valles who agrees admission to her service. Medical Screen Exam Complete: Yes Emergency Medical Condition: Yes Differential Diagnosis Differential Diagnosis: Nausea and vomiting versus diarrhea versus gastritis versus colitis versus medication side effect versus dehydration versus kidney failure Medical Records Medical records reviewed: Yes I reviewed the patient's medical records. Lab Data Lab results reviewed: Yes I reviewed the patient's lab results. Lab results narrative: UA negative Result diagrams: 05/31/18 13:52 05/31/18 13:52 Lab Results 05/31/18 05/31/18 05/31/18 Range/Units 13:52 13:52 13:53 WBC 9.7 (4.0-11.0) th/mm3 RBC 4.60 (4.00-5.30) mil/mm3 Hgb 13.6 (11.6-15.3) gm/dL Hct 39.4 (35.0-46.0) % MCV 85.7 (80.0-100.0) fL MCH 29.5 (27.0-34.0) pg MCHC 34.5 (32.0-36.0) % RDW 16.6 (11.6-17.2) % Plt Count 271 D (150-450) th/mm3 MPV 7.6 (7.0-11.0) fL Neut % (Auto) 75.0 H (16.0-70.0) % Lymph % (Auto) 13.5 (9.0-44.0) % [place] % (Auto) 10.7 H (0.0-8.0) % Eos % (Auto) 0.4 (0.0-4.0) % Baso % (Auto) 0.4 (0.0-2.0) % Neut # (Auto) 7.3 (1.8-7.7) th/mm3 Lymph # (Auto) 1.3 (1.0-4.8) th/mm3 [place] # (Auto) 1.0 H (0.0-0.9) th/mm3 Eos # (Auto) 0.0 (0.0-0.4) th/mm3 Baso # (Auto) 0.0 (0.0-0.2) th/mm3 WBC Differential . Differential Comment Auto diff final Sodium 139 (136-145) meq/L Potassium 2.5 L* (3.5-5.1) meq/L Chloride 104 (98-107) meq/L Carbon Dioxide 23.7 (21.0-32.0) meq/L Anion Gap 11 (5-15) meq/L BUN 8 (7-18) mg/dL Creatinine 1.29 H (0.50-1.00) mg/dL Estimated GFR 41 L (>89) mL/min Random Glucose 99 (74-106) mg/dL Lactic Acid 1.1 (0.4-2.0) mmol/L Calcium 8.8 (8.5-10.1) mg/dL Total Bilirubin 0.5 (0.2-1.0) mg/dL AST 23 (15-37) U/L ALT 25 (10-53) U/L Alkaline Phosphatase 80 (45-117) U/L Total Protein 6.8 (6.4-8.2) g/dL Albumin 3.5 (3.4-5.0) g/dL Lipase 93 (73-393) U/L Urine Color (Yellw/Straw) Urine Clarity (Clear) Urine pH (5.0-8.5) Ur Specific [place] (1.002-1.035) Urine Protein (Neg-Trace) mg/dL Urine Glucose (UA) (Negative) mg/dL Urine Ketones (Negative) mg/dL Urine Occult Blood (Negative) Urine Nitrate (Negative) Urine Bilirubin (Negative) Urine Urobilinogen (Less than 2) mg/dL Ur Leukocyte Esterase (Negative) Urine RBC (0-3) /hpf Urine WBC (0-5) /hpf Ur Squamous Epith Cells (0-5) /hpf Micro UA Comment Ur Microscopic Review Urine Culture Comments 05/31/18 Range/Units 15:30 WBC (4.0-11.0) th/mm3 RBC (4.00-5.30) mil/mm3 Hgb (11.6-15.3) gm/dL Hct (35.0-46.0) % MCV (80.0-100.0) fL MCH (27.0-34.0) pg MCHC (32.0-36.0) % RDW (11.6-17.2) % Plt Count (150-450) th/mm3 MPV (7.0-11.0) fL Neut % (Auto) (16.0-70.0) % Lymph % (Auto) (9.0-44.0) % [place] % (Auto) (0.0-8.0) % Eos % (Auto) (0.0-4.0) % Baso % (Auto) (0.0-2.0) % Neut # (Auto) (1.8-7.7) th/mm3 Lymph # (Auto) (1.0-4.8) th/mm3 [place] # (Auto) (0.0-0.9) th/mm3 Eos # (Auto) (0.0-0.4) th/mm3 Baso # (Auto) (0.0-0.2) th/mm3 WBC Differential Differential Comment Sodium (136-145) meq/L Potassium (3.5-5.1) meq/L Chloride (98-107) meq/L Carbon Dioxide (21.0-32.0) meq/L Anion Gap (5-15) meq/L BUN (7-18) mg/dL Creatinine (0.50-1.00) mg/dL Estimated GFR (>89) mL/min Random Glucose (74-106) mg/dL Lactic Acid (0.4-2.0) mmol/L Calcium (8.5-10.1) mg/dL Total Bilirubin (0.2-1.0) mg/dL AST (15-37) U/L ALT (10-53) U/L Alkaline Phosphatase (45-117) U/L Total Protein (6.4-8.2) g/dL Albumin (3.4-5.0) g/dL Lipase (73-393) U/L Urine Color Yellow (Yellw/Straw) Urine Clarity Clear (Clear) Urine pH 6.0 (5.0-8.5) Ur Specific [place] 1.005 (1.002-1.035) Urine Protein Negative (Neg-Trace) mg/dL Urine Glucose (UA) Negative (Negative) mg/dL Urine Ketones Trace H (Negative) mg/dL Urine Occult Blood Negative (Negative) Urine Nitrate Negative (Negative) Urine Bilirubin Negative (Negative) Urine Urobilinogen Less than 2 (Less than 2) mg/dL Ur Leukocyte Esterase Negative (Negative) Urine RBC 1 (0-3) /hpf Urine WBC 4 (0-5) /hpf Ur Squamous Epith Cells <1 (0-5) /hpf Micro UA Comment Culture not ind Ur Microscopic Review Not Reportable Urine Culture Comments Culture not ind Imaging Data Attestation: I personally reviewed and interpreted this imaging study as follows : Radiologist's impression: Abdomen/Pelvis CT 05/31/18 13:30 CONCLUSION: 1. Diverticulosis without diverticulitis. 2. Renal cysts. 3. Atherosclerosis. Discharge Plan Discharge Disposition Patient Disposition: 30 Still Patient Discharge Details Diagnosis: Nausea & vomiting, Acute hypokalemia Physicians Team ED Provider: Argenis Barth ED Midlevel Provider: Som Herrera Primary Care Provider: UNKNOWN, Attending Provider: Cherry Saldivar Discharge Interventions Interventions: Vital Signs Last Done: 05/31/18 14:00 Status ED Status: Admitted Observation Patient
[2018-05-31 14:22] LABS: Anion Gap 11 meq/L (5-15); Aspartate Aminotransferase 23 U/L (15-37); Blood Urea Nitrogen 8 mg/dL (7-18); Calcium 8.8 mg/dL (8.5-10.1); Carbon Dioxide 23.7 meq/L (21.0-32.0); Chloride 104 meq/L (98-107); Glomerular Filtration Rate 41 mL/min (>89); Glucose,Random 99 mg/dL (74-106); Sodium 139 meq/L (136-145)
[2018-05-31 14:23] LABS: Alanine Aminotransferase 25 U/L (10-53); Albumin 3.5 g/dL (3.4-5.0); Lipase 93 U/L (73-393)
[2018-05-31 14:24] LABS: Alkaline Phosphatase 80 U/L (45-117); Total Protein 6.8 g/dL (6.4-8.2)
[2018-05-31 14:37] LABS: Potassium 2.5 meq/L (3.5-5.1)
[2018-05-31] MEDS ORDERED: Potassium Chlor 20 mEq Premix 20 MEQ/100 ML PIGGYBACK IV.SIG ONE (14:47)
[2018-05-31 16:05] LABS: Bilirubin,Urine Negative (Negative); Clarity,Urine Clear (Clear); Color,Urine Yellow (Yellw/Straw); Glucose,Urine (UA) Negative (Negative); Leukocyte Esterase,Urine Negative (Negative); Nitrite,Urine Negative (Negative); Specific Gravity,Urine 1.005 (1.002-1.035); Squamous Epithelial Cell,Urine <1 /hpf (0-5)
--- NOTE | 2018-05-31 16:13 | CT ---
EXAM DATE: 05/31/2018 3:58 PM EDT AGE/SEX: 72 years / Female INDICATIONS: Abdominal pain with nausea, vomiting, and diarrhea. CLINICAL DATA: This is the patient's initial encounter. Patient reports that signs and symptoms have been present for 2 weeks and indicates a pain score of 3/10. MEDICAL/SURGICAL HISTORY: Carcinoma, lung. Chronic obstructive pulmonary disease. Hypertensio n. Hysterectomy. ORAL CONTRAST: No oral contrast ingested. RADIATION DOSE: 4.5 CTDI (mGy) COMPARISON: No prior exams available for comparison. TECHNIQUE: Multiple contiguous axial images were obtained through the abdomen and pelvis following b olus infusion of 92 ml Visipaque 320 (iodixanol) nonionic water-soluble contrast as a single exam d ose. No oral contrast ingested. Using automated exposure control and adjustment of the mA and/or kV according to patient size, radiation dose was kept as low as reasonably achievable to obtain optimal diagnostic quality images. DICOM format image data is available electronically for review and compar patricia. FINDINGS: Lung bases are clear. No pleural or pericardial effusions. Liver, gallbladder, spleen, pancreas, righ t adrenal gland unremarkable. There is a left adrenal mass measuring 2 cm, and 30 Hounsfield units, i ncompletely characterized on this study. There are bilateral renal cysts noted the largest at the lef t lower pole anteromedially measuring 2.6 cm. Atherosclerotic calcification of the aorta and iliac ve ssels. Urinary bladder is unremarkable. The patient is status post hysterectomy. There is diverticulo sis of the sigmoid colon without evidence of diverticulitis. No adenopathy or aneurysm. The osseous s tructures are intact. Remote compression deformity and Schmorl node formation superior endplate T12. CONCLUSION: 1. Diverticulosis without diverticulitis. 2. Renal cysts. 3. Atherosclerosis. Electronically signed by: Daniel Cee MD 05/31/2018 4:12 PM EDT
--- NOTE | 2018-05-31 16:43 | P.HPIM ---
History of Present Illness Primary Care Physician: UNKNOWN History of Present Illness: 72 year old female with stage IV lung adenocarcinoma, HTN, hypothyroidism, and SLE presenting from her oncologist's office for intractable nausea, vomiting, and diarrhea. She was recently diagnosed with lung cancer in the last couple months after a routine pre-op CXR showed lung nodules. She was hospitalized 04/12-04/14 secondary to post-biopsy pneumothorax. The patient was set up with Dr. Kang and underwent her first round of chemo about 3-4 weeks ago. She states shortly after she developed diarrhea and was due for her second round of chemo on 05/20 but because of ongoing diarrhea, dehydration, and hypokalemia it was postponed. She was treated with fluids and her potassium was repleted. Her diarrhea persisted and she developed nausea and vomiting that wasn 't responsive to Zofran, Phenergan, or Imodium. She hasn't been able to keep anything down. If she eats she vomits and if she drinks anything she has almost instant liquid diarrhea. She states she had multiple bouts of diarrhea overnight and last time she vomited was yesterday. She endorses feeling cold all the time but denies fever. She denies current abdominal pain but states just prior to diarrhea she has severe abdominal cramping. She denies melena or hematochezia. Her diarrhea has become so bad she has had to wear Depends. She endorses some soreness in her bottom and over her ribs. Inpatient Certification I certify that the inpatient services were ordered in accordance with Medicare regulations governing the order. This includes certification that hospital inpatient services are reasonable and necessary and in the case of services not specified as inpatient-only under 42 CFR 419.22(n), that they are appropriately provided as inpatient services in accordance to with the 2-midnight benchmark under 43 CFR 412.3(e) - Diagnosis (1) Intractable diarrhea (2) Intractable nausea and vomiting Review of Systems All other systems reviewed negative except as stated in HPI PMFSH - History History Provided By: Patient, Family Member - Medical History Medical History: Medical History (Last Reviewed 05/31/18 @ 16:41 by Cherry Saldivar MD) Cataract fragments in eye following surgery Chemotherapy induced nausea and vomiting GERD (gastroesophageal reflux disease) Lung cancer COPD (chronic obstructive pulmonary disease) DVT (deep venous thrombosis) HTN (hypertension) Hypothyroid Lupus - Surgical History Surgical History: Surgical History (Last Reviewed 05/31/18 @ 16:41 by Cherry Saldivar MD) H/O foot surgery Hx of tonsillectomy H/O hysterectomy with oophorectomy H/O lumbar discectomy - Family History Family History: Family History (Last Reviewed 05/31/18 @ 17:25 by Cherry Saldivar MD) Father Myocardial infarction Mother Stroke - Tobacco History Second Hand Smoke Exposure: No Tobacco Use In Past 30 Days: No Smoking Status: Former smoker Tobacco Type: Cigarettes - Alcohol History How Often Do You Have a Drink Containing Alcohol: Never - Substance Use History Substance History: No History of Abuse - Travel History Recent Travel in the [place] Within the Last 8 Weeks: No Recent Travel Out of the Country Within the Last 8 Weeks: No - Immunization History Tetanus Immunization: Unsure Hx Influenza Vaccine This Season: No Medications and Allergies Active Medications: Active Medications Sodium Chloride (Ns Inj) 1,000 mls @ 0 mls/hr IV.SIG BOLUS KIMBER Last Infusion: 05/31/18 14:45 Dose: Infused Potassium Chloride (Kcl 20 Meq Premix Inj) 20 meq in 100 mls @ 50 mls/hr IV.SIG ONCE ONE Stop: 05/31/18 16:46 Last Admin: 05/31/18 16:24 Dose: 50 mls/hr Allergies Allergy/AdvReac Type Severity Reaction Status Date / Time No Known Allergies Allergy Verified 04/12/18 08:12 Home Medications Medication Instructions Recorded Confirmed Type amlodipine [Norvasc] 5 mg PO DAILY 04/12/18 05/31/18 History hydroxychloroquine 200 mg PO BID 04/12/18 05/31/18 History levothyroxine 50 mcg PO DAILY 04/12/18 05/31/18 History losartan-hydrochlorothiazide 1 tab PO DAILY 04/12/18 05/31/18 History ondansetron HCl 8 mg PO TID PRN 04/27/18 05/31/18 History pantoprazole 40 mg PO DAILY 04/27/18 05/31/18 History cholecalciferol (vitamin D3) 1,000 unit PO DAILY 05/31/18 05/31/18 History [Vitamin D3] cyanocobalamin (vitamin B-12) 1,000 mcg PO DAILY 05/31/18 05/31/18 History [Vitamin B-12] Exam Vital signs: Vital Signs 05/31/18 11:55 05/31/18 14:00 Temperature 97.3 F L Pulse Rate 70 62 Respiratory Rate 17 18 Blood Pressure 157/82 H 141/78 H Pulse Oximetry 96 96 Intake & Output 05/30/18 05/31/18 05/31/18 18:59 06:59 18:59 Intake Total 1000 / 1000 Balance 1000 / 1000 Weight 45.359 kg Intake: IV 1000 / 1000 NS Inj 1,000 ML @ Wide Open IV. 1000 / 1000 SIG BOLUS KIMBER Rx#:[id number] Narrative: GENERAL: Elderly thin female resting in bed in NAD. SKIN: Warm and dry. No jaundice. HEENT: AT/NC. Pupils equal and round. No scleral icterus. MMM. NECK: Supple no tender LAD or JVD. HEART: RRR no m/r/g. LUNGS: CTAB without wheezes or crackles. ABDOMEN: +BS, soft, mild diffuse tenderness to palpation. No guarding or rebound. EXTREMITIES: No LE edema. NEURO: Awake and alert. Nonfocal. Results - Labs CBC & Chem 7: 05/31/18 13:52 05/31/18 13:52 Labs: Short CBC 05/31/18 Range/Units 13:52 WBC 9.7 (4.0-11.0) th/mm3 Hgb 13.6 (11.6-15.3) gm/dL Hct 39.4 (35.0-46.0) % Plt Count 271 D (150-450) th/mm3 BMP 05/31/18 13:52 Sodium 139 Potassium 2.5 L* Chloride 104 Carbon Dioxide 23.7 BUN 8 Creatinine 1.29 H Calcium 8.8 Liver Function 05/31/18 Range/Units 13:52 Total Bilirubin 0.5 (0.2-1.0) mg/dL AST 23 (15-37) U/L ALT 25 (10-53) U/L Alkaline Phosphatase 80 (45-117) U/L Albumin 3.5 (3.4-5.0) g/dL Urine 05/31/18 Range/Units 15:30 Urine Color Yellow (Yellw/Straw) Urine Clarity Clear (Clear) Urine pH 6.0 (5.0-8.5) Ur Specific [place] 1.005 (1.002-1.035) Urine Protein Negative (Neg-Trace) mg/dL Urine Glucose (UA) Negative (Negative) mg/dL - Imaging Impressions Abdomen/Pelvis CT 05/31/18 13:30 CONCLUSION: 1. Diverticulosis without diverticulitis. 2. Renal cysts. 3. Atherosclerosis. Caprini VTE Risk Assessment Caprini VTE Risk Assessment: Moderate/High Risk (score >= 2) Caprini Risk Assessment Model: Point Value = 1 Point Value = 2 Point Value = 3 Point Value = 5 Age 41-60 Minor surgery BMI > 25 kg/m2 Swollen legs Varicose veins or History of unexplained or recurrent spontaneous Oral contraceptives or hormone replacement Sepsis (< 1 month) Serious lung disease, including pneumonia (< 1 month) Abnormal pulmonary function Acute myocardial infarction Congestive heart failure (< 1 month) History of inflammatory bowel disease Medical patient at bed rest Age 61-74 Arthroscopic surgery Major open surgery (> 45 min) Laparoscopic surgery (> 45 min) Malignancy Confined to bed (> 72 hours) Immobilizing plaster cast Central venous access Age >= 75 History of VTE Family history of VTE Factor V Leiden Prothrombin [id number] Lupus anticoagulant Anticardiolipin antibodies Elevated serum homocysteine Heparin-induced thrombocytopenia Other congenital or acquired thrombophilia Stroke (< 1 month) Elective arthroplasty Hip, pelvis, or leg fracture Acute spinal cord injury (< 1 month) Prophylaxis Regimen: Total Risk Factor Score Risk Level Prophylaxis Regimen 0-1 Low Early ambulation 2 Moderate Order ONE of the following: *Sequential Compression Device (SCD) *Heparin 5000 units SQ BID 3-4 Higher Order ONE of the following medications: *Heparin 5000 units SQ TID *Enoxaparin/Lovenox 40 mg SQ daily (WT < 150 kg, CrCl > 30 mL/min) *Enoxaparin/Lovenox 30 mg SQ daily (WT < 150 kg, CrCl > 10-29 mL/min) *Enoxaparin/Lovenox 30 mg SQ BID (WT < 150 kg, CrCl > 30 mL/min) AND/OR *Sequential Compression Device (SCD) 5 or more Highest Order ONE of the following medications: *Heparin 5000 units SQ TID (Preferred with Epidurals) *Enoxaparin/Lovenox 40 mg SQ daily (WT < 150 kg, CrCl > 30 mL/min) *Enoxaparin/Lovenox 30 mg SQ daily (WT < 150 kg, CrCl > 10-29 mL/min) *Enoxaparin/Lovenox 30 mg SQ BID (WT < 150 kg, CrCl > 30 mL/min) AND *Sequential Compression Device (SCD) Assessment and Plan - Assessment (1) Intractable diarrhea Code(s): R19.7 - Diarrhea, unspecified Status: Acute (2) Intractable nausea and vomiting Code(s): R11.2 - Nausea with vomiting, unspecified Status: Acute - Plan 72-year-old female with recently diagnosed stage IV lung adenocarcinoma, hypertension, lupus, hypothyroidism, and COPD presenting with intractable nausea, vomiting, and diarrhea. 1. Intractable diarrhea CT A/P showing diverticulosis without diverticulitis, renal cyst, and atherosclerosis Possibly secondary to chemotherapy but will also check for C. diff especially since she was recently hospitalized Bolused in the ED IV rehydration with D5-1/2NS-KCl at 100 mL/h Will hold off on Imodium until C. diff results 2. Intractable nausea and vomiting Likely secondary to chemotherapy as well IV hydration as above Zofran and Reglan as needed 3. Hypokalemia Potassium 2.5 S/P KCl 20 mEq IV in the ED Patient also given one-time dose of PO KCl but subsequently vomited Providing potassium and fluids as stated above 4. FRANKLIN Creatinine appears to be about 0.8-0.9 Creatinine elevated at 1.29 with GFR 41 Likely secondary to dehydration from GI losses Monitor renal function and avoid nephrotoxic agents IV fluids 5. Stage IV lung cancer Known to Dr. Kang. Will consult so he can follow along 6. COPD Not in acute exacerbation Supplemental O2 as needed 7. Hypertension Resume home metoprolol Holding losartan and HCTZ for now given slight elevation in creatinine and possibility that GI losses can lead to hypotension 8. Hypothyroidism Resume home levothyroxine 9. SLE Resume home Plaquenil FEN: D5-1/2NS-KCl at 100 mL/h Monitoring electrolytes Clear liquid diet as tolerated DVT prophylaxis: Lovenox Code Status: DNR Discussed Condition With: Patient Discharge Planning: In next few days once patient able to tolerate PO, FRANKLIN and hypokalemia resolves , and further work-up complete
[2018-05-31] MEDS ORDERED: Bisacodyl 10 MG Supp RECTAL PRN (16:59)
[2018-05-31] MEDS: KCL 20 mEq/D5W/NaCl 0.45% Inj 1,000 ML IV.CONT SCH (20:07)
[2018-05-31] MEDS: Hydroxychloroquine 200 MG Tablet PO SCH (20:09)
[2018-05-31] MEDS ORDERED: Senna/Docusate Sodium 8.6/50 MG Tablet PO SCH (21:00)
[2018-05-31] MEDS: Bismuth Subsalicylate Susp 240 ML Bottle PO PRN (22:24)
[2018-05-31] MEDS: Zolpidem Tartrate 5 MG Tablet PO PRN (23:59)
[2018-06-01] MEDS: Bismuth Subsalicylate Susp 240 ML Bottle PO PRN (03:28)
[2018-06-01 04:31] LABS: Hematocrit 32.7 % (35.0-46.0); Hemoglobin 11.5 gm/dL (11.6-15.3); Mean Corpuscular HGB Conc 35.1 % (32.0-36.0); Mean Corpuscular Hemoglobin 30.1 pg (27.0-34.0); Mean Corpuscular Volume 85.8 fL (80.0-100.0); Mean Platelet Volume 8.3 fL (7.0-11.0); Platelet Count 245 th/mm3 (150-450); Red Blood Count 3.82 mil/mm3 (4.00-5.30); White Blood Count 8.6 th/mm3 (4.0-11.0)
[2018-06-01 05:02] LABS: Carbon Dioxide 22.5 meq/L (21.0-32.0); Magnesium 1.8 mg/dL (1.5-2.5)
[2018-06-01 05:17] LABS: Potassium 2.7 meq/L (3.5-5.1)
[2018-06-01] MEDS: Levothyroxine 50 MCG Tablet PO SCH (06:50)
[2018-06-01] MEDS: KCL 20 mEq/D5W/NaCl 0.45% Inj 1,000 ML IV.CONT SCH ×2 (06:50→16:42)
[2018-06-01] MEDS ORDERED: Potassium Chloride 25 MEQ Effervescent Tablet PO ONE (08:45)
--- NOTE | 2018-06-01 10:23 | P.PN ---
Subjective Interval history: Follow-up intractable nausea and vomiting/intractable diarrhea June 01, 2018-patient seen and examined, reports some improvement of nausea and vomiting since admission. Denies any diarrheal episodes since admission as well. Currently afebrile. Potassium low. Patient is wondering if she can be discharged home today Physical Exam Vital signs: Vital Signs 05/31/18 11:55 05/31/18 14:00 05/31/18 17:00 Temperature 97.3 F L Pulse Rate 70 62 69 Respiratory Rate 17 18 25 H Blood Pressure 157/82 H 141/78 H 167/81 H Pulse Oximetry 96 96 96 05/31/18 18:00 05/31/18 19:30 05/31/18 20:00 Temperature 98.2 F Pulse Rate 68 70 Respiratory Rate 25 H 17 Blood Pressure 152/85 H 159/79 H Pulse Oximetry 95 95 97 06/01/18 00:00 06/01/18 04:00 06/01/18 08:00 Temperature 98.1 F 97.6 F 98.4 F Pulse Rate 65 64 64 Respiratory Rate 16 16 18 Blood Pressure 156/87 H 138/77 157/88 H Pulse Oximetry 97 98 06/01/18 09:28 Temperature Pulse Rate Respiratory Rate Blood Pressure Pulse Oximetry 97 Intake & Output 05/31/18 06/01/18 06/01/18 18:59 06:59 18:59 Intake Total 1050 / 1050 1530 / 1530 Output Total 400 / 400 Balance 1050 / 1050 1130 / 1130 Weight 45.359 kg 45.5 kg Intake: IV 1050 / 1050 1050 / 1050 D5W/1/2NS + KCL 20 mEq Inj 1, 1000 / 1000 000 ML @ 100 mls/hr IV.CONT . Q10H KIMBER Rx#:[id number] KCl 20 mEq Premix Inj 20 meq In 50 / 50 50 / 50 100 ml @ 50 mls/hr IV.SIG ONCE ONE Rx#:[id number] NS Inj 1,000 ML @ Wide Open IV. 1000 / 1000 SIG BOLUS KIMBER Rx#:[id number] Oral 480 / 480 Output: Urine 400 / 400 Other: # Voids 2 Date of Last Bowel Movement 05/31/18 # Bowel Movements 4 Narrative: GENERAL: NAD SKIN: Warm and dry. HEAD: Normocephalic. EYES: No scleral icterus. No injection or drainage. NECK: Supple, trachea midline. No JVD or lymphadenopathy. CARDIOVASCULAR: Regular rate and rhythm without murmurs, gallops, or rubs. RESPIRATORY: Breath sounds equal bilaterally. No accessory muscle use. GASTROINTESTINAL: Abdomen soft, non-tender, nondistended. MUSCULOSKELETAL: No cyanosis, or edema. BACK: Nontender without obvious deformity. No CVA tenderness. Results - Labs CBC & Chem 7: 06/01/18 03:40 06/01/18 03:40 Laboratory Results - last 24 hr 05/31/18 05/31/18 05/31/18 13:52 13:52 13:53 WBC 9.7 RBC 4.60 Hgb 13.6 Hct 39.4 MCV 85.7 MCH 29.5 MCHC 34.5 RDW 16.6 Plt Count 271 D MPV 7.6 Neut % (Auto) 75.0 H Lymph % (Auto) 13.5 Bailey % (Auto) 10.7 H Eos % (Auto) 0.4 Baso % (Auto) 0.4 Neut # (Auto) 7.3 Lymph # (Auto) 1.3 Bailey # (Auto) 1.0 H Eos # (Auto) 0.0 Baso # (Auto) 0.0 WBC Differential . Differential Comment Auto diff final Sodium 139 Potassium 2.5 L* Chloride 104 Carbon Dioxide 23.7 Anion Gap 11 BUN 8 Creatinine 1.29 H Estimated GFR 41 L Random Glucose 99 Lactic Acid 1.1 Calcium 8.8 Magnesium Total Bilirubin 0.5 AST 23 ALT 25 Alkaline Phosphatase 80 Total Protein 6.8 Albumin 3.5 Lipase 93 Urine Color Urine Clarity Urine pH Ur Specific [place] Urine Protein Urine Glucose (UA) Urine Ketones Urine Occult Blood Urine Nitrate Urine Bilirubin Urine Urobilinogen Ur Leukocyte Esterase Urine RBC Urine WBC Ur Squamous Epith Cells Micro UA Comment Ur Microscopic Review Urine Culture Comments St C. diff Tox Epid 027 C. difficile (PCR) 05/31/18 05/31/18 06/01/18 15:30 15:35 03:40 WBC RBC Hgb Hct MCV MCH MCHC RDW Plt Count MPV Neut % (Auto) Lymph % (Auto) Bailey % (Auto) Eos % (Auto) Baso % (Auto) Neut # (Auto) Lymph # (Auto) Bailey # (Auto) Eos # (Auto) Baso # (Auto) WBC Differential Differential Comment Sodium 143 Potassium 2.7 L* Chloride 112 H D Carbon Dioxide 22.5 Anion Gap 9 BUN 5 L Creatinine 0.99 Estimated GFR 55 L Random Glucose 96 Lactic Acid Calcium 8.0 L D Magnesium 1.8 Total Bilirubin AST ALT Alkaline Phosphatase Total Protein Albumin Lipase Urine Color Yellow Urine Clarity Clear Urine pH 6.0 Ur Specific [place] 1.005 Urine Protein Negative Urine Glucose (UA) Negative Urine Ketones Trace H Urine Occult Blood Negative Urine Nitrate Negative Urine Bilirubin Negative Urine Urobilinogen Less than 2 Ur Leukocyte Esterase Negative Urine RBC 1 Urine WBC 4 Ur Squamous Epith Cells <1 Micro UA Comment Culture not ind Ur Microscopic Review Not Reportable Urine Culture Comments Culture not ind St C. diff Tox Epid 027 Negative C. difficile (PCR) Negative 06/01/18 03:40 WBC 8.6 RBC 3.82 L Hgb 11.5 L D Hct 32.7 L MCV 85.8 MCH 30.1 MCHC 35.1 RDW 17.0 Plt Count 245 MPV 8.3 Neut % (Auto) Lymph % (Auto) Bailey % (Auto) Eos % (Auto) Baso % (Auto) Neut # (Auto) Lymph # (Auto) Bailey # (Auto) Eos # (Auto) Baso # (Auto) WBC Differential Differential Comment Sodium Potassium Chloride Carbon Dioxide Anion Gap BUN Creatinine Estimated GFR Random Glucose Lactic Acid Calcium Magnesium Total Bilirubin AST ALT Alkaline Phosphatase Total Protein Albumin Lipase Urine Color Urine Clarity Urine pH Ur Specific [place] Urine Protein Urine Glucose (UA) Urine Ketones Urine Occult Blood Urine Nitrate Urine Bilirubin Urine Urobilinogen Ur Leukocyte Esterase Urine RBC Urine WBC Ur Squamous Epith Cells Micro UA Comment Ur Microscopic Review Urine Culture Comments St C. diff Tox Epid 027 C. difficile (PCR) Microbiology 05/31/18 22:18 Stool Stool for WBCs - Final - Imaging Impressions Abdomen/Pelvis CT 05/31/18 13:30 CONCLUSION: 1. Diverticulosis without diverticulitis. 2. Renal cysts. 3. Atherosclerosis. Assessment and Plan - Assessment (1) Intractable diarrhea Code(s): R19.7 - Diarrhea, unspecified Status: Acute (2) Intractable nausea and vomiting Code(s): R11.2 - Nausea with vomiting, unspecified Status: Acute - Plan 72-year-old female with 1. Intractable diarrhea-improving since admission CT A/P showing diverticulosis without diverticulitis, renal cyst, and atherosclerosis 2/2 chemotherapy ; C. difficile PCR and stool culture pending. Treat with antidiarrhea motility agent if negative IV rehydration with D5-1/2NS-KCl at 100 mL/h 2. Intractable nausea and vomiting 2/2 chemotherapy as well IV hydration as above Zofran and Reglan as needed 3. Hypokalemia Will give extra potassium 50 mEq 1 now and continue with current treatment. Monitor electrolyte in a.m. 4. FRANKLIN Prerenal, continue IV fluid hydration. Monitor BUN and creatinine 5. Stage IV lung cancer Known to Dr. Kang. Consultation pending 6. COPD Not in acute exacerbation Supplemental O2 as needed 7. Hypertension Continue home metoprolol Holding losartan and HCTZ for now given slight elevation in creatinine and possibility that GI losses can lead to hypotension 8. Hypothyroidism Continue home levothyroxine 9. SLE Continue home Plaquenil DVT prophylaxis: Lovenox
[2018-06-01] MEDS ORDERED: Potassium Chlor 20 mEq Premix 20 MEQ/100 ML PIGGYBACK IV.SIG SCH (10:45)
[2018-06-01] MEDS: Enoxaparin Inj 30 MG/0.3 ML Syringe SQ SCH (10:57)
[2018-06-01] MEDS: Hydroxychloroquine 200 MG Tablet PO SCH ×2 (10:58→20:25)
[2018-06-01] MEDS: Potassium Chlor 20 mEq Premix 20 MEQ/100 ML PIGGYBACK IV.SIG SCH ×3 (10:59→23:18)
[2018-06-01] MEDS: amLODIPine 5 MG Tablet PO SCH (10:59)
[2018-06-01] MEDS ORDERED: hydrALAZINE 25 MG Tablet PO PRN (19:17)
--- NOTE | 2018-06-01 21:26 | ECG ---
Date Performed: 05/31/2018 Time Performed: 22:31:20 PTAGE: 72 years EKG: Sinus rhythm Normal ECG NO PREVIOUS TRACING DOCTOR: Hill Srivastava Interpretating Date/Time 06/01/2018 21:26:16
[2018-06-01] MEDS ORDERED: Temazepam 15 MG Capsule PO ONE (22:39)
[2018-06-01] MEDS ORDERED: Witch Hazel 50%/Glyderin 12.5% 40 Pad Jar RECTAL PRN (22:40)
[2018-06-02] MEDS: Potassium Chlor 20 mEq Premix 20 MEQ/100 ML PIGGYBACK IV.SIG SCH (01:32)
[2018-06-02] MEDS: Levothyroxine 50 MCG Tablet PO SCH (05:57)
[2018-06-02] MEDS: KCL 20 mEq/D5W/NaCl 0.45% Inj 1,000 ML IV.CONT SCH ×3 (06:22→21:06)
[2018-06-02 07:00] LABS: Baso % (Auto) 0.4 % (0.0-2.0); Eos # (Auto) 0.1 th/mm3 (0.0-0.4); Eos % (Auto) 1.8 % (0.0-4.0); Hematocrit 32.5 % (35.0-46.0); Hemoglobin 11.3 gm/dL (11.6-15.3); Lymph # (Auto) 1.5 th/mm3 (1.0-4.8); Lymph % (Auto) 19.2 % (9.0-44.0); Mean Corpuscular HGB Conc 34.9 % (32.0-36.0); Mean Corpuscular Hemoglobin 30.4 pg (27.0-34.0); Mean Platelet Volume 8.1 fL (7.0-11.0); Mono # (Auto) 0.8 th/mm3 (0.0-0.9); Mono % (Auto) 10.4 % (0.0-8.0); Neut # (Auto) 5.2 th/mm3 (1.8-7.7); Neut % (Auto) 68.2 % (16.0-70.0); Platelet Count 229 th/mm3 (150-450); Red Blood Count 3.73 mil/mm3 (4.00-5.30); Red Cell Distribution Width 17.3 % (11.6-17.2); White Blood Count 7.6 th/mm3 (4.0-11.0)
[2018-06-02 07:29] LABS: Alanine Aminotransferase 22 U/L (10-53); Albumin 2.8 g/dL (3.4-5.0); Alkaline Phosphatase 66 U/L (45-117); Anion Gap 9 meq/L (5-15); Aspartate Aminotransferase 20 U/L (15-37); Blood Urea Nitrogen 1 mg/dL (7-18); Calcium 8.1 mg/dL (8.5-10.1); Carbon Dioxide 22.6 meq/L (21.0-32.0); Chloride 112 meq/L (98-107); Glomerular Filtration Rate 65 mL/min (>89); Glucose,Random 96 mg/dL (74-106); Potassium 3.4 meq/L (3.5-5.1); Sodium 144 meq/L (136-145); Total Protein 5.5 g/dL (6.4-8.2)
[2018-06-02] MEDS: amLODIPine 5 MG Tablet PO SCH (09:41)
[2018-06-02] MEDS: Enoxaparin Inj 30 MG/0.3 ML Syringe SQ SCH (09:41)
[2018-06-02] MEDS: Hydroxychloroquine 200 MG Tablet PO SCH ×2 (09:42→21:03)
[2018-06-02] MEDS ORDERED: Loperamide 2 MG Capsule PO PRN (10:26)
[2018-06-02] MEDS ORDERED: Potassium Chloride 25 MEQ Effervescent Tablet PO ONE (10:27)
--- NOTE | 2018-06-02 10:31 | P.PN ---
Subjective Interval history: Follow-up intractable nausea and vomiting/intractable diarrhea June 01, 2018-patient seen and examined, reports some improvement of nausea and vomiting since admission. Denies any diarrheal episodes since admission as well. Currently afebrile. Potassium low. Patient is wondering if she can be discharged home today June 02, 2018-patient seen and examined, reported improvement of nausea and vomiting, states she has had 2 episode of diarrhea. Requesting that her diet be advanced. Physical Exam Vital signs: Vital Signs 06/01/18 12:00 06/01/18 16:00 06/01/18 18:44 Temperature 98.6 F 98 F Pulse Rate 68 75 Respiratory Rate 18 18 Blood Pressure 172/85 H 170/100 H 154/96 H Pulse Oximetry 96 97 06/01/18 20:00 06/02/18 00:00 06/02/18 04:00 Temperature 97.8 F 98 F 97.8 F Pulse Rate 67 75 68 Respiratory Rate 16 16 15 Blood Pressure 152/86 H 152/81 H 170/96 H Pulse Oximetry 97 95 96 06/02/18 08:00 Temperature 98.8 F Pulse Rate 73 Respiratory Rate 16 Blood Pressure 163/100 H Pulse Oximetry 96 Intake & Output 06/01/18 06/02/18 06/02/18 18:59 06:59 18:59 Intake Total 2019 / 2019 1320 / 1320 Output Total 1275 / 1275 600 / 600 Balance 745 / 745 720 / 720 Intake: IV 1300 / 1300 1200 / 1200 D5W/1/2NS + KCL 20 mEq Inj 1, 1000 / 1000 1000 / 1000 000 ML @ 100 mls/hr IV.CONT . Q10H KIMBER Rx#:[id number] KCl 20 mEq Premix Inj 20 meq In 300 / 300 200 / 200 100 ml @ 50 mls/hr IV.SIG Q2H KIMBER Rx#:[id number] Oral 720 / 720 120 / 120 Output: Urine 1275 / 1275 600 / 600 Other: Date of Last Bowel Movement 06/01/18 06/01/18 # Bowel Movements 4 Narrative: GENERAL: NAD SKIN: Warm and dry. HEAD: Normocephalic. EYES: No scleral icterus. No injection or drainage. NECK: Supple, trachea midline. No JVD or lymphadenopathy. CARDIOVASCULAR: Regular rate and rhythm without murmurs, gallops, or rubs. RESPIRATORY: Breath sounds equal bilaterally. No accessory muscle use. GASTROINTESTINAL: Abdomen soft, non-tender, nondistended. MUSCULOSKELETAL: No cyanosis, or edema. BACK: Nontender without obvious deformity. No CVA tenderness. Results - Labs CBC & Chem 7: 06/02/18 06:08 06/02/18 06:08 Laboratory Results - last 24 hr 06/01/18 06/02/18 06/02/18 20:15 06:08 06:08 WBC 7.6 RBC 3.73 L Hgb 11.3 L Hct 32.5 L MCV 87.0 MCH 30.4 MCHC 34.9 RDW 17.3 H Plt Count 229 MPV 8.1 Neut % (Auto) 68.2 Lymph % (Auto) 19.2 [place] % (Auto) 10.4 H Eos % (Auto) 1.8 Baso % (Auto) 0.4 Neut # (Auto) 5.2 Lymph # (Auto) 1.5 [place] # (Auto) 0.8 Eos # (Auto) 0.1 Baso # (Auto) 0.0 WBC Differential . Differential Comment Auto diff final Sodium 144 Potassium 3.0 L 3.4 L Chloride 112 H Carbon Dioxide 22.6 Anion Gap 9 BUN 1 L Creatinine 0.86 Estimated GFR 65 L Random Glucose 96 Calcium 8.1 L Total Bilirubin 0.4 AST 20 ALT 22 Alkaline Phosphatase 66 Total Protein 5.5 L D Albumin 2.8 L D Microbiology 05/31/18 22:18 Stool Stool for WBCs - Final Assessment and Plan - Assessment (1) Intractable diarrhea Code(s): R19.7 - Diarrhea, unspecified Status: Acute (2) Intractable nausea and vomiting Code(s): R11.2 - Nausea with vomiting, unspecified Status: Acute - Plan 72-year-old female with 1. Intractable diarrhea-improving since admission CT A/P showing diverticulosis without diverticulitis, renal cyst, and atherosclerosis 2/2 chemotherapy ; C. difficile PCR negative. Treat with antidiarrhea motility agent IV rehydration with D5-1/2NS-KCl at 100 mL/h 2. Intractable nausea and vomiting-Improving 2/2 chemotherapy as well IV hydration as above Zofran and Reglan as needed 3. Hypokalemia Will give extra potassium 50 mEq 1 now and continue with current treatment. Monitor electrolyte in a.m. 4. FRANKLIN Prerenal, Improving with IV fluid hydration. Monitor BUN and creatinine 5. Stage IV lung cancer Known to Dr. Kang. Consultation pending 6. COPD Not in acute exacerbation Supplemental O2 as needed 7. Hypertension Continue home metoprolol Resume losartan and HCTZ today 8. Hypothyroidism Continue home levothyroxine 9. SLE Continue home Plaquenil DVT prophylaxis: Lovenox
[2018-06-02] MEDS ORDERED: Non-Formulary Drug (Losartan-Hydrochlorothiazide [Losartan-Hydrochlorothiazide] 1 TAB) PO SCH (10:45)
--- NOTE | 2018-06-02 14:44 | P.DIET ---
Nutritional Evaluation Type of nutrition evaluation: initial Nutrition screening: Weight Loss > 10 lbs Subjective Subjective Comments: Prior to admission, pt states she had N/V/D for 10 days. Decreased appetite. Objective - Diagnosis Intractable N/V w/ Hypokalemia - Objective % IBW: 100 ([id number]#) Body Weight Used for Calculations: Actual Energy Needs - Lower Range (kCal/kg): 30 Energy Needs - Upper Range (kCal/kg): 35 Lower Limit kCal/kg (kCals): 1,365 Upper Limit kCal/kg (kCals): 1,593 Lower Limit Protein Factor (Grams per Kg): 1.1 Upper Limit Protein Factor (Grams per Kg): 1.5 Lower Protein Needs (Protein): 50 Upper Protein Needs (Protein): 68 Fluid Factor (ml/kg): 25 Estimated Fluid Needs (ml): 1,138 Dietitian Reviewed in Medical Record: Current diet, Curent medications, Intake & Output, Labs, Medical history Diet Order: Regular Objective Comments: Meds: Synthroid, Zofran Labs: K 3.4 LBM 06/02 Assessment Assessment: Pt admitted for intractable N/V w/ hypokalemia. Pt is at 100% of her IBW. She has lung cancer and was receiving treatment for this. She had c/o N/V/D for 10 days prior to admission. Oncology consult pending. Pt was on clear liquids and now diet has been advanced to Regular. She is at nutritional risk 2/2 her medical diagnosis of lung cancer and N/V/D prior to admission. Will provide Enlive BID and monitor pt's tolerance. Dietitian following. Recommendations: 1. Continue current POC. 2. Enlive BID. Dietitian to Monitor: Lab values, Supplement acceptance, Intake & Output, Diet tolerance, Weight change, PO Intake, Medical course
--- NOTE | 2018-06-02 15:16 | P.PNONC ---
Subjective Interval history: Afebrile Pt reports her stools have somewhat improved since she has been in States she tolerated some tuna and a small amount of mashed potatoes today Having some increased anxiety Objective Vital Signs/Intake & Output: Vital Signs 06/01/18 16:00 06/01/18 18:44 06/01/18 20:00 Temperature 98 F 97.8 F Pulse Rate 75 67 Respiratory Rate 18 16 Blood Pressure 170/100 H 154/96 H 152/86 H Pulse Oximetry 97 97 06/02/18 00:00 06/02/18 04:00 06/02/18 08:00 Temperature 98 F 97.8 F 98.8 F Pulse Rate 75 68 73 Respiratory Rate 16 15 16 Blood Pressure 152/81 H 170/96 H 163/100 H Pulse Oximetry 95 96 96 06/02/18 12:00 Temperature Pulse Rate 73 Respiratory Rate 18 Blood Pressure 163/100 H Pulse Oximetry 96 Intake & Output 06/01/18 06/02/18 06/02/18 18:59 06:59 18:59 Intake Total 2019 / 2019 1320 / 1320 1000 / 1000 Output Total 1275 / 1275 600 / 600 Balance 745 / 745 720 / 720 1000 / 1000 Intake: IV 1300 / 1300 1200 / 1200 1000 / 1000 D5W/1/2NS + KCL 20 mEq Inj 1, 1000 / 1000 1000 / 1000 1000 / 1000 000 ML @ 100 mls/hr IV.CONT . Q10H [facility] Rx#:[id number] KCl 20 mEq Premix Inj 20 meq In 300 / 300 200 / 200 100 ml @ 50 mls/hr IV.SIG Q2H [facility] Rx#:[id number] Oral 720 / 720 120 / 120 Output: Urine 1275 / 1275 600 / 600 Other: Date of Last Bowel Movement 06/01/18 06/01/18 06/02/18 # Bowel Movements 4 2 Result Diagrams: 06/02/18 06:08 06/02/18 06:08 Laboratory Results: Laboratory Results - last 24 hr 06/01/18 06/02/18 06/02/18 20:15 06:08 06:08 WBC 7.6 RBC 3.73 L Hgb 11.3 L Hct 32.5 L MCV 87.0 MCH 30.4 MCHC 34.9 RDW 17.3 H Plt Count 229 MPV 8.1 Neut % (Auto) 68.2 Lymph % (Auto) 19.2 [place] % (Auto) 10.4 H Eos % (Auto) 1.8 Baso % (Auto) 0.4 Neut # (Auto) 5.2 Lymph # (Auto) 1.5 [place] # (Auto) 0.8 Eos # (Auto) 0.1 Baso # (Auto) 0.0 WBC Differential . Differential Comment Auto diff final Sodium 144 Potassium 3.0 L 3.4 L Chloride 112 H Carbon Dioxide 22.6 Anion Gap 9 BUN 1 L Creatinine 0.86 Estimated GFR 65 L Random Glucose 96 Calcium 8.1 L Total Bilirubin 0.4 AST 20 ALT 22 Alkaline Phosphatase 66 Total Protein 5.5 L D Albumin 2.8 L D Culture Results: Microbiology 05/31/18 22:18 Enteric Pathogens (PCR) - Final Stool No enteric pathogens detected by PCR (No Salmonella sp., Shigella sp., Campylobacter sp., Yersinia enterocolitica, Vibrio sp., Norovirus, or EHEC (Shiga Toxin 1 or Shiga Toxin 2) detected. 05/31/18 22:18 Cryptosporidium Antigen - Final Stool Negative - No Cryptosporicium antigen detected In selected cases of patients with a history of immunosuppression or foreign travel, a full ova and parasites examination may be desired. Contact the microbiology lab if full workup is indicated and subit another specimen for testing. Giardia Antigen (GREG) - Final Negative - No Giardia Antigen detected In selected cases of patients with a history of immunosuppression or foreign travel, a full ova and parasites examination may be desired. Contact the microbiology lab if full workup is indicated and subit another specimen for testing. 05/31/18 22:18 Stool for WBCs - Final Stool Medications: Active Medications Generic Name Dose Route Start Last Admin Trade Name Freq PRN Reason Stop Dose Admin Amlodipine Besylate 5 mg 06/01/18 09:00 06/02/18 09:41 Norvasc PO 5 mg DAILY [facility] Administration Bismuth Subsalicylate 30 ml 05/31/18 20:45 06/01/18 03:28 Pepto-Bosmol Liq PO 30 ml Q2HR PRN Administration DIARRHEA Enoxaparin Sodium 30 mg 06/01/18 09:00 06/02/18 09:41 Lovenox Inj SQ 30 mg DAILY [facility] Administration Hydralazine HCl 25 mg 06/01/18 19:17 06/02/18 05:57 Apresoline PO 25 mg Q8H PRN Administration BP > 160/90 Hydrochlorothiazide 12.5 mg 06/02/18 10:45 06/02/18 12:49 Microzide PO 12.5 mg DAILY [facility] Administration Hydroxychloroquine Sulfate 200 mg 05/31/18 21:00 06/02/18 09:42 Plaquenil PO 200 mg BID [facility] Administration Sodium Chloride 1,000 mls @ 0 mls/hr 05/31/18 13:30 05/31/18 14:45 Ns Inj IV.SIG Infused BOLUS [facility] Infusion Wide Open Potassium Chloride/Dextrose/Sod Cl 1,000 mls @ 100 mls/hr 05/31/18 18:00 12:51 D5w/1/2ns + Kcl 20 Meq Inj IV.CONT 100 mls/hr .Q10H [facility] Administration Levothyroxine Sodium 50 mcg 06/01/18 06:00 06/02/18 05:57 Synthroid PO 50 mcg DAILY@0600 [facility] Administration Loperamide HCl 2 mg 06/02/18 10:26 06/02/18 12:49 Imodium PO 2 mg Q6H PRN Administration DIARRHEA Losartan Potassium 50 mg 06/02/18 10:45 06/02/18 12:49 Cozaar PO 50 mg DAILY [facility] Administration Ondansetron HCl 4 mg 05/31/18 17:02 06/01/18 16:51 Zofran Inj IV.PUSH 4 mg Q6H PRN Administration NAUSEA OR VOMITING Pantoprazole Sodium 40 mg 06/01/18 09:00 06/02/18 09:42 Protonix PO 40 mg DAILY [facility] Administration Witch Carmen/Glycerin 1 applicatio 06/01/18 22:40 06/01/18 23:22 Tucks Pads RECTAL 1 applicatio PRN PRN Administration HEMORRHOIDS Zolpidem Tartrate 5 mg 05/31/18 17:02 05/31/18 23:59 Ambien PO 5 mg HS PRN Administration INSOMNIA Objective Remarks: GENERAL: Thin older female resting in bed in no obvious distress SKIN: Warm and dry. HEAD: Normocephalic. EYES: No scleral icterus. No injection or drainage. NECK: Supple, trachea midline. No JVD or lymphadenopathy. CARDIOVASCULAR: Regular rate and rhythm without murmurs. RESPIRATORY: Clear anteriorly. Breathing unlabored at rest. GASTROINTESTINAL: Abdomen soft, nontender EXTREMITIES: No cyanosis, or edema. MUSCULOSKELETAL: Adequate muscle tone. NEUROLOGICAL: No obvious focal deficit. Awake, alert, and oriented x3. Assessment/Plan - Plan 72-year-old female with diagnosis of stage IV adenocarcinoma of the lung. The patient was being treated with carboplatin, Alimta and pembrolizumab. She received 1 dose of chemotherapy delivered on April 29. Unfortunately when she was almost due for her next treatment she developed significant diarrhea and this is been persistent since that time. 1. Add on Lomotil for diarrhea despite immodium. 2. OK for small dose Xanax, 0.25mg BID. 3. Continue IV fluids, supportive care
[2018-06-02] MEDS ORDERED: ALPRAZolam 0.25 MG Tablet PO PRN (15:18)
[2018-06-02] MEDS: Diphenoxylate/Atropine 2.5/0.025 MG Tablet PO PRN (16:50)
[2018-06-02] MEDS: Zolpidem Tartrate 5 MG Tablet PO PRN (21:58)
[2018-06-03] MEDS: Diphenoxylate/Atropine 2.5/0.025 MG Tablet PO PRN ×3 (03:33→22:05)
[2018-06-03 06:42] LABS: Alanine Aminotransferase 20 U/L (10-53); Albumin 2.9 g/dL (3.4-5.0); Anion Gap 11 meq/L (5-15); Aspartate Aminotransferase 18 U/L (15-37); Blood Urea Nitrogen 1 mg/dL (7-18); Calcium 8.4 mg/dL (8.5-10.1); Carbon Dioxide 24.3 meq/L (21.0-32.0); Chloride 107 meq/L (98-107); Glomerular Filtration Rate 63 mL/min (>89); Glucose,Random 86 mg/dL (74-106); Sodium 142 meq/L (136-145)
[2018-06-03 06:44] LABS: Alkaline Phosphatase 66 U/L (45-117); Total Protein 5.4 g/dL (6.4-8.2)
[2018-06-03] MEDS: Levothyroxine 50 MCG Tablet PO SCH (07:14)
[2018-06-03] MEDS: KCL 20 mEq/D5W/NaCl 0.45% Inj 1,000 ML IV.CONT SCH ×2 (07:15→16:04)
[2018-06-03] MEDS: Enoxaparin Inj 30 MG/0.3 ML Syringe SQ SCH (08:16)
[2018-06-03] MEDS: Hydroxychloroquine 200 MG Tablet PO SCH ×2 (08:16→20:57)
[2018-06-03] MEDS: amLODIPine 5 MG Tablet PO SCH (08:16)
[2018-06-03] MEDS ORDERED: Potassium Chlor 40 mEq Premix 40 MEQ/100 ML PIGGYBACK IV.SIG ONE (09:10)
[2018-06-03] MEDS ORDERED: Sucralfate 1 GM Tablet PO ONE (09:34)
--- NOTE | 2018-06-03 09:40 | P.PNONC ---
Subjective Interval history: Afebrile Patient reports she had one bowel movement this morning Feels like it is starting to firm up Now with increased nausea States she has sensation of burning in her stomach Objective Vital Signs/Intake & Output: Vital Signs 06/02/18 12:00 06/02/18 16:00 06/02/18 19:34 Temperature 98.2 F 98.6 F Pulse Rate 73 70 69 Respiratory Rate 18 18 21 Blood Pressure 163/100 H 143/88 H 146/79 H Pulse Oximetry 96 97 98 06/02/18 20:04 06/02/18 23:49 06/03/18 00:00 Temperature 98.3 F Pulse Rate 66 66 67 Respiratory Rate 20 Blood Pressure 142/85 H Pulse Oximetry 97 06/03/18 03:34 06/03/18 03:58 06/03/18 08:00 Temperature 98.1 F 97.1 F L Pulse Rate 69 67 77 Respiratory Rate 20 16 Blood Pressure 150/94 H 155/97 H Pulse Oximetry 98 96 06/03/18 08:36 Temperature Pulse Rate Respiratory Rate Blood Pressure Pulse Oximetry 98 Intake & Output 06/02/18 06/03/18 06/03/18 18:59 06:59 18:59 Intake Total 1000 / 1000 1240 / 1240 1000 / 1000 Balance 1000 / 1000 1240 / 1240 1000 / 1000 Weight 104 lb 11.513 oz Intake: IV 1000 / 1000 1000 / 1000 1000 / 1000 D5W/1/2NS + KCL 20 mEq Inj 1, 1000 / 1000 1000 / 1000 1000 / 1000 000 ML @ 100 mls/hr IV.CONT . Q10H [facility] Rx#:[id number] Oral 240 / 240 Other: # Voids 6 Date of Last Bowel Movement 06/02/18 06/03/18 # Bowel Movements 2 1 Result Diagrams: 06/02/18 06:08 06/03/18 06:00 Laboratory Results: Laboratory Results - last 24 hr 06/03/18 06:00 Sodium 142 Potassium 3.0 L Chloride 107 Carbon Dioxide 24.3 Anion Gap 11 BUN 1 L Creatinine 0.88 Estimated GFR 63 L Random Glucose 86 Calcium 8.4 L Total Bilirubin 0.5 AST 18 ALT 20 Alkaline Phosphatase 66 Total Protein 5.4 L Albumin 2.9 L Culture Results: Microbiology 05/31/18 22:18 Enteric Pathogens (PCR) - Final Stool No enteric pathogens detected by PCR (No Salmonella sp., Shigella sp., Campylobacter sp., Yersinia enterocolitica, Vibrio sp., Norovirus, or EHEC (Shiga Toxin 1 or Shiga Toxin 2) detected. 05/31/18 22:18 Cryptosporidium Antigen - Final Stool Negative - No Cryptosporicium antigen detected In selected cases of patients with a history of immunosuppression or foreign travel, a full ova and parasites examination may be desired. Contact the microbiology lab if full workup is indicated and subit another specimen for testing. Giardia Antigen (GREG) - Final Negative - No Giardia Antigen detected In selected cases of patients with a history of immunosuppression or foreign travel, a full ova and parasites examination may be desired. Contact the microbiology lab if full workup is indicated and subit another specimen for testing. 05/31/18 22:18 Stool for WBCs - Final Stool Medications: Active Medications Generic Name Dose Route Start Last Admin Trade Name Freq PRN Reason Stop Dose Admin Amlodipine Besylate 5 mg 06/01/18 09:00 06/03/18 08:16 Norvasc PO 5 mg DAILY [facility] Administration Bismuth Subsalicylate 30 ml 05/31/18 20:45 06/01/18 03:28 Pepto-Bosmol Liq PO 30 ml Q2HR PRN Administration DIARRHEA Diphenoxylate HCl/Atropine 1 tab 06/02/18 15:17 06/03/18 03:33 Lomotil PO 1 tab Q6H PRN Administration DIARRHEA Enoxaparin Sodium 30 mg 06/01/18 09:00 06/03/18 08:16 Lovenox Inj SQ 30 mg DAILY [facility] Administration Hydralazine HCl 25 mg 06/01/18 19:17 06/02/18 05:57 Apresoline PO 25 mg Q8H PRN Administration BP > 160/90 Hydrochlorothiazide 12.5 mg 06/02/18 10:45 06/03/18 08:16 Microzide PO 12.5 mg DAILY [facility] Administration Hydroxychloroquine Sulfate 200 mg 05/31/18 21:00 06/03/18 08:16 Plaquenil PO 200 mg BID [facility] Administration Sodium Chloride 1,000 mls @ 0 mls/hr 05/31/18 13:30 05/31/18 14:45 Ns Inj IV.SIG Infused BOLUS [facility] Infusion Wide Open Potassium Chloride/Dextrose/Sod Cl 1,000 mls @ 100 mls/hr 05/31/18 18:00 07:15 D5w/1/2ns + Kcl 20 Meq Inj IV.CONT 100 mls/hr .Q10H [facility] Administration Levothyroxine Sodium 50 mcg 06/01/18 06:00 06/03/18 07:14 Synthroid PO 50 mcg DAILY@0600 [facility] Administration Losartan Potassium 50 mg 06/02/18 10:45 06/03/18 08:16 Cozaar PO 50 mg DAILY [facility] Administration Ondansetron HCl 4 mg 05/31/18 17:02 06/03/18 07:18 Zofran Inj IV.PUSH 4 mg Q6H PRN Administration NAUSEA OR VOMITING Pantoprazole Sodium 40 mg 06/01/18 09:00 06/03/18 08:16 Protonix PO 40 mg DAILY [facility] Administration Witch Carmen/Glycerin 1 applicatio 06/01/18 22:40 06/01/18 23:22 Tucks Pads RECTAL 1 applicatio PRN PRN Administration HEMORRHOIDS Zolpidem Tartrate 5 mg 05/31/18 17:02 06/02/18 21:58 Ambien PO 5 mg HS PRN Administration INSOMNIA Objective Remarks: GENERAL: Thin older female resting in bed in no obvious distress SKIN: Warm and dry. HEAD: Normocephalic. EYES: No scleral icterus. No injection or drainage. NECK: Supple, trachea midline. No JVD or lymphadenopathy. CARDIOVASCULAR: Regular rate and rhythm without murmurs. RESPIRATORY: Clear anteriorly. Breathing unlabored at rest. GASTROINTESTINAL: Abdomen soft, nontender EXTREMITIES: No cyanosis, or edema. MUSCULOSKELETAL: Adequate muscle tone. NEUROLOGICAL: No obvious focal deficit. Awake, alert, and oriented x3. Assessment/Plan - Plan 72-year-old female with diagnosis of stage IV adenocarcinoma of the lung. The patient was being treated with carboplatin, Alimta and pembrolizumab. She received 1 dose of chemotherapy delivered on April 29. Unfortunately when she was almost due for her next treatment she developed significant diarrhea and this is been persistent since that time. 1. Diarrhea appears to be improved after taking 1 dose of Lomotil. Continue to monitor. If she has increased stool throughout the day we can trial octreotide. 2. Patient is hopeful anti-anxiety medication will help with her nausea as well. I discussed we can try her on low-dose Ativan for this. I have also ordered a one-time dose of Carafate to see if this improves the burning sensation in her stomach. The patient is already on Protonix. 3. We will give IV potassium as patient states she does not think she can swallow oral potassium tablets. 4. Supportive care Addendum: Pt seen again at 1445. She reports she has not had a true bowel movement since earlier this morning. Reports that when she recently urinated and noticed "a tiny little dark spot that I have to look twice to even see- I think my stool is really starting to firm." Hold off on octreotide for now. Continue anti-emetics as she continues to have problems with nausea.
[2018-06-03] MEDS: LORazepam 0.5 MG Tablet PO PRN ×2 (10:30→16:02)
--- NOTE | 2018-06-03 11:37 | P.PN ---
Subjective Interval history: Follow-up intractable nausea and vomiting/intractable diarrhea June 01, 2018-patient seen and examined, reports some improvement of nausea and vomiting since admission. Denies any diarrheal episodes since admission as well. Currently afebrile. Potassium low. Patient is wondering if she can be discharged home today June 02, 2018-patient seen and examined, reported improvement of nausea and vomiting, states she has had 2 episode of diarrhea. Requesting that her diet be advanced. June 03, 2018-patient seen and examined, states she is having nausea and episode of multiple loose stools Physical Exam Vital signs: Vital Signs 06/02/18 12:00 06/02/18 16:00 06/02/18 19:34 Temperature 98.2 F 98.6 F Pulse Rate 73 70 69 Respiratory Rate 18 18 21 Blood Pressure 163/100 H 143/88 H 146/79 H Pulse Oximetry 96 97 98 06/02/18 20:04 06/02/18 23:49 06/03/18 00:00 Temperature 98.3 F Pulse Rate 66 66 67 Respiratory Rate 20 Blood Pressure 142/85 H Pulse Oximetry 97 06/03/18 03:34 06/03/18 03:58 06/03/18 08:00 Temperature 98.1 F 97.1 F L Pulse Rate 69 67 77 Respiratory Rate 20 16 Blood Pressure 150/94 H 155/97 H Pulse Oximetry 98 96 06/03/18 08:36 Temperature Pulse Rate Respiratory Rate Blood Pressure Pulse Oximetry 98 Intake & Output 06/02/18 06/03/18 06/03/18 18:59 06:59 18:59 Intake Total 1000 / 1000 1240 / 1240 1000 / 1000 Balance 1000 / 1000 1240 / 1240 1000 / 1000 Weight 47.5 kg Intake: IV 1000 / 1000 1000 / 1000 1000 / 1000 D5W/1/2NS + KCL 20 mEq Inj 1, 1000 / 1000 1000 / 1000 1000 / 1000 000 ML @ 100 mls/hr IV.CONT . Q10H [facility] Rx#:[id number] Oral 240 / 240 Other: # Voids 6 Date of Last Bowel Movement 06/02/18 06/03/18 06/03/18 # Bowel Movements 2 1 Narrative: GENERAL: NAD SKIN: Warm and dry. HEAD: Normocephalic. EYES: No scleral icterus. No injection or drainage. NECK: Supple, trachea midline. No JVD or lymphadenopathy. CARDIOVASCULAR: Regular rate and rhythm without murmurs, gallops, or rubs. RESPIRATORY: Breath sounds equal bilaterally. No accessory muscle use. GASTROINTESTINAL: Abdomen soft, non-tender, nondistended. MUSCULOSKELETAL: No cyanosis, or edema. BACK: Nontender without obvious deformity. No CVA tenderness. Results - Labs CBC & Chem 7: 06/02/18 06:08 06/03/18 06:00 Laboratory Results - last 24 hr 06/03/18 06:00 Sodium 142 Potassium 3.0 L Chloride 107 Carbon Dioxide 24.3 Anion Gap 11 BUN 1 L Creatinine 0.88 Estimated GFR 63 L Random Glucose 86 Calcium 8.4 L Total Bilirubin 0.5 AST 18 ALT 20 Alkaline Phosphatase 66 Total Protein 5.4 L Albumin 2.9 L Microbiology 05/31/18 22:18 Stool Enteric Pathogens (PCR) - Final No enteric pathogens detected by PCR (No Salmonella sp., Shigella sp., Campylobacter sp., Yersinia enterocolitica, Vibrio sp., Norovirus, or EHEC (Shiga Toxin 1 or Shiga Toxin 2) detected. 05/31/18 22:18 Stool Cryptosporidium Antigen - Final Negative - No Cryptosporicium antigen detected In selected cases of patients with a history of immunosuppression or foreign travel, a full ova and parasites examination may be desired. Contact the microbiology lab if full workup is indicated and subit another specimen for testing. 05/31/18 22:18 Stool Giardia Antigen (GREG) - Final Negative - No Giardia Antigen detected In selected cases of patients with a history of immunosuppression or foreign travel, a full ova and parasites examination may be desired. Contact the microbiology lab if full workup is indicated and subit another specimen for testing. Assessment and Plan - Assessment (1) Intractable diarrhea Code(s): R19.7 - Diarrhea, unspecified Status: Acute (2) Intractable nausea and vomiting Code(s): R11.2 - Nausea with vomiting, unspecified Status: Acute - Plan 72-year-old female with 1. Intractable diarrhea CT A/P showing diverticulosis without diverticulitis, renal cyst, and atherosclerosis 2/2 chemotherapy ; C. difficile PCR negative. Treat with antidiarrhea motility agent, however may try octreotide IV rehydration with D5-1/2NS-KCl at 100 mL/h 2. Intractable nausea and vomiting-Improving 2/2 chemotherapy as well IV hydration as above Zofran and Reglan as needed 3. Hypokalemia Will give extra potassium 60 mEq 1 now and continue with current treatment. Monitor electrolyte in a.m. 4. [place]LIN Prerenal, Improving with IV fluid hydration. Monitor BUN and creatinine 5. Stage IV lung cancer Known to Dr. Kang. Consultation pending 6. COPD Not in acute exacerbation Supplemental O2 as needed 7. Hypertension Continue home metoprolol Continue losartan and HCTZ 8. Hypothyroidism Continue home levothyroxine 9. SLE Continue home Plaquenil DVT prophylaxis: Lovenox
[2018-06-03] MEDS ORDERED: Scopalamine 1.5 MG Patch T-DERMAL SCH (17:00)
[2018-06-04] MEDS: KCL 20 mEq/D5W/NaCl 0.45% Inj 1,000 ML IV.CONT SCH ×2 (00:51→03:22)
[2018-06-04] MEDS: Zolpidem Tartrate 5 MG Tablet PO PRN (00:51)
[2018-06-04] MEDS: Diphenoxylate/Atropine 2.5/0.025 MG Tablet PO PRN (04:31)
[2018-06-04 05:45] LABS: Albumin 2.7 g/dL (3.4-5.0); Anion Gap 12 meq/L (5-15); Aspartate Aminotransferase 13 U/L (15-37); Blood Urea Nitrogen 2 mg/dL (7-18); Carbon Dioxide 26.5 meq/L (21.0-32.0); Chloride 105 meq/L (98-107); Glomerular Filtration Rate 58 mL/min (>89); Glucose,Random 87 mg/dL (74-106); Potassium 3.4 meq/L (3.5-5.1); Sodium 143 meq/L (136-145)
[2018-06-04 05:47] LABS: Alanine Aminotransferase 18 U/L (10-53); Alkaline Phosphatase 66 U/L (45-117); Total Protein 5.1 g/dL (6.4-8.2)
[2018-06-04] MEDS: Levothyroxine 50 MCG Tablet PO SCH (07:19)
--- NOTE | 2018-06-04 09:00 | P.PNONC ---
Subjective Interval history: Afebrile Patient reports she is feeling much better today Wants to go home No longer having any abdominal pain or nausea Wants to try some scrambled eggs this morning Reports her bowel movements are continuing to firm up Objective Vital Signs/Intake & Output: Vital Signs 06/03/18 12:00 06/03/18 16:00 06/03/18 20:03 Temperature 98.9 F 98.3 F Pulse Rate 71 70 73 Respiratory Rate 16 18 Blood Pressure 155/90 H 138/94 H Pulse Oximetry 94 L 99 06/03/18 20:53 06/04/18 00:00 06/04/18 00:43 Temperature 98.4 F 98.5 F Pulse Rate 69 67 66 Respiratory Rate 18 16 Blood Pressure 150/89 H 140/80 Pulse Oximetry 97 96 06/04/18 04:00 06/04/18 04:12 06/04/18 07:00 Temperature 98.3 F Pulse Rate 59 L 66 69 Respiratory Rate 15 Blood Pressure 148/88 H Pulse Oximetry 100 Intake & Output 06/03/18 06/04/18 06/04/18 18:59 06:59 18:59 Intake Total 2460 / 2460 1240 / 1240 Balance 2460 / 2460 1240 / 1240 Weight 99 lb 3.328 oz Intake: IV 2100 / 2100 1000 / 1000 D5W/1/2NS + KCL 20 mEq Inj 1, 2000 / 2000 1000 / 1000 000 ML @ 100 mls/hr IV.CONT . Q10H [facility] Rx#:[id number] KCl 40 mEq Premix Inj 40 meq In 100 / 100 100 ml @ 25 mls/hr IV.SIG ONCE ONE Rx#:[id number] Oral 360 / 360 240 / 240 Other: # Voids 4 2 Date of Last Bowel Movement 06/03/18 06/04/18 # Bowel Movements 3 2 Result Diagrams: 06/02/18 06:08 06/04/18 04:39 Laboratory Results: Laboratory Results - last 24 hr 06/04/18 04:39 Sodium 143 Potassium 3.4 L Chloride 105 Carbon Dioxide 26.5 Anion Gap 12 BUN 2 L Creatinine 0.95 Estimated GFR 58 L Random Glucose 87 Calcium 8.0 L Total Bilirubin 0.5 AST 13 L ALT 18 Alkaline Phosphatase 66 Total Protein 5.1 L Albumin 2.7 L Culture Results: Microbiology 05/31/18 22:18 Enteric Pathogens (PCR) - Final Stool No enteric pathogens detected by PCR (No Salmonella sp., Shigella sp., Campylobacter sp., Yersinia enterocolitica, Vibrio sp., Norovirus, or EHEC (Shiga Toxin 1 or Shiga Toxin 2) detected. 05/31/18 22:18 Cryptosporidium Antigen - Final Stool Negative - No Cryptosporicium antigen detected In selected cases of patients with a history of immunosuppression or foreign travel, a full ova and parasites examination may be desired. Contact the microbiology lab if full workup is indicated and subit another specimen for testing. Giardia Antigen (GREG) - Final Negative - No Giardia Antigen detected In selected cases of patients with a history of immunosuppression or foreign travel, a full ova and parasites examination may be desired. Contact the microbiology lab if full workup is indicated and subit another specimen for testing. 05/31/18 22:18 Stool for WBCs - Final Stool Medications: Active Medications Generic Name Dose Route Start Last Admin Trade Name Freq PRN Reason Stop Dose Admin Amlodipine Besylate 5 mg 06/01/18 09:00 06/03/18 08:16 Norvasc PO 5 mg DAILY [facility] Administration Bismuth Subsalicylate 30 ml 05/31/18 20:45 06/01/18 03:28 Pepto-Bosmol Liq PO 30 ml Q2HR PRN Administration DIARRHEA Diphenoxylate HCl/Atropine 1 tab 06/02/18 15:17 06/04/18 04:31 Lomotil PO 1 tab Q6H PRN Administration DIARRHEA Enoxaparin Sodium 30 mg 06/01/18 09:00 06/03/18 08:16 Lovenox Inj SQ 30 mg DAILY [facility] Administration Hydralazine HCl 25 mg 06/01/18 19:17 06/02/18 05:57 Apresoline PO 25 mg Q8H PRN Administration BP > 160/90 Hydrochlorothiazide 12.5 mg 06/02/18 10:45 06/03/18 08:16 Microzide PO 12.5 mg DAILY [facility] Administration Hydroxychloroquine Sulfate 200 mg 05/31/18 21:00 06/03/18 20:57 Plaquenil PO 200 mg BID [facility] Administration Sodium Chloride 1,000 mls @ 0 mls/hr 05/31/18 13:30 05/31/18 14:45 Ns Inj IV.SIG Infused BOLUS [facility] Infusion Wide Open Potassium Chloride/Dextrose/Sod Cl 1,000 mls @ 100 mls/hr 05/31/18 18:00 10/21 03:22 D5w/1/2ns + Kcl 20 Meq Inj IV.CONT Not Given .Q10H [facility] Levothyroxine Sodium 50 mcg 06/01/18 06:00 06/04/18 07:19 Synthroid PO 50 mcg DAILY@0600 [facility] Administration Lorazepam 0.5 mg 06/03/18 09:37 06/03/18 16:02 Ativan PO 0.5 mg Q12H PRN Administration ANXIETY Losartan Potassium 50 mg 06/02/18 10:45 06/03/18 08:16 Cozaar PO 50 mg DAILY [facility] Administration Ondansetron HCl 4 mg 05/31/18 17:02 06/03/18 07:18 Zofran Inj IV.PUSH 4 mg Q6H PRN Administration NAUSEA OR VOMITING Pantoprazole Sodium 40 mg 06/01/18 09:00 06/03/18 08:16 Protonix PO 40 mg DAILY [facility] Administration Scopolamine 1 patch 06/03/18 17:00 06/03/18 18:13 Transderm-Scop 1.5 Mg Patch.72hr T-DERMAL 1 patch Q72H [facility] Administration Witch Carmen/Glycerin 1 applicatio 06/01/18 22:40 06/01/18 23:22 Tucks Pads RECTAL 1 applicatio PRN PRN Administration HEMORRHOIDS Zolpidem Tartrate 5 mg 05/31/18 17:02 06/04/18 00:51 Ambien PO 5 mg HS PRN Administration INSOMNIA Objective Remarks: GENERAL: Thin older female resting in bed in no obvious distress SKIN: Warm and dry. HEAD: Normocephalic. EYES: No scleral icterus. No injection or drainage. NECK: Supple, trachea midline. No JVD or lymphadenopathy. CARDIOVASCULAR: Regular rate and rhythm without murmurs. RESPIRATORY: Clear anteriorly. Breathing unlabored at rest. GASTROINTESTINAL: Abdomen soft, nontender EXTREMITIES: No cyanosis, or edema. MUSCULOSKELETAL: Adequate muscle tone. NEUROLOGICAL: No obvious focal deficit. Awake, alert, and oriented x3. Assessment/Plan - Plan 72-year-old female with diagnosis of stage IV adenocarcinoma of the lung. The patient was being treated with carboplatin, Alimta and pembrolizumab. She received 1 dose of chemotherapy delivered on April 29. Unfortunately when she was almost due for her next treatment she developed significant diarrhea and this is been persistent since that time. 1. Nausea appears to be much improved today after patient trialing scopolamine patch. 2. Potassium much improved. She is at 3.4 today. I have ordered 20 mEq to be given IVPB. 3. Patient is clear for discharge from oncology standpoint if she is able to keep food down. She will need follow-up in clinic next week with Dr. Kang - Attending Statement The exam, history, and the medical decision-making described in the above note were completed with the assistance of the mid-level provider. I reviewed and agree with the findings presented. I attest that I had a [id number] encounter with the patient on the same day, and personally performed and documented my assessment and findings in the medical record. Eager to go home. Feels she can get more rest at home. She has fu appt for labs this and appt w/ Dr. Kang after. OK for DC from heme/onc perspective.
[2018-06-04 09:29] VITALS: RESP 18
[2018-06-04] MEDS: Hydroxychloroquine 200 MG Tablet PO SCH (09:34)
[2018-06-04] MEDS: amLODIPine 5 MG Tablet PO SCH (09:34)
[2018-06-04] MEDS: LORazepam 0.5 MG Tablet PO PRN (09:34)
[2018-06-04] MEDS: Enoxaparin Inj 30 MG/0.3 ML Syringe SQ SCH (09:35)
[2018-06-04] MEDS ORDERED: Potassium Chlor 20 mEq Premix 20 MEQ/100 ML PIGGYBACK IV.SIG ONE (10:00)
--- NOTE | 2018-06-04 10:03 | P.PN ---
Subjective Interval history: Follow-up intractable nausea and vomiting/intractable diarrhea June 01, 2018-patient seen and examined, reports some improvement of nausea and vomiting since admission. Denies any diarrheal episodes since admission as well. Currently afebrile. Potassium low. Patient is wondering if she can be discharged home today June 02, 2018-patient seen and examined, reported improvement of nausea and vomiting, states she has had 2 episode of diarrhea. Requesting that her diet be advanced. June 03, 2018-patient seen and examined, states she is having nausea and episode of multiple loose stools June 04, 2018-patient seen and examined, reported improvement of nausea. Reports improvement of diarrheal episode. Physical Exam Vital signs: Vital Signs 06/03/18 12:00 06/03/18 16:00 06/03/18 20:03 Temperature 98.9 F 98.3 F Pulse Rate 71 70 73 Respiratory Rate 16 18 Blood Pressure 155/90 H 138/94 H Pulse Oximetry 94 L 99 06/03/18 20:53 06/04/18 00:00 06/04/18 00:43 Temperature 98.4 F 98.5 F Pulse Rate 69 67 66 Respiratory Rate 18 16 Blood Pressure 150/89 H 140/80 Pulse Oximetry 97 96 06/04/18 04:00 06/04/18 04:12 06/04/18 07:00 Temperature 98.3 F Pulse Rate 59 L 66 69 Respiratory Rate 15 Blood Pressure 148/88 H Pulse Oximetry 100 06/04/18 09:27 Temperature 98.8 F Pulse Rate 67 Respiratory Rate 18 Blood Pressure 147/90 H Pulse Oximetry 98 Intake & Output 06/03/18 06/04/18 06/04/18 18:59 06:59 18:59 Intake Total 2460 / 2460 1240 / 1240 Balance 2460 / 2460 1240 / 1240 Weight 45 kg Intake: IV 2100 / 2100 1000 / 1000 D5W/1/2NS + KCL 20 mEq Inj , 1999 / 1999 1000 / 1000 000 ML @ 100 mls/hr IV.CONT . Q10H [facility] Rx#:[id number] KCl 40 mEq Premix Inj 40 meq In 100 / 100 100 ml @ 25 mls/hr IV.SIG ONCE ONE Rx#:[id number] Oral 360 / 360 240 / 240 Other: # Voids 4 2 Date of Last Bowel Movement 06/03/18 06/04/1806/04/18 # Bowel Movements 3 2 Narrative: GENERAL: NAD SKIN: Warm and dry. HEAD: Normocephalic. EYES: No scleral icterus. No injection or drainage. NECK: Supple, trachea midline. No JVD or lymphadenopathy. CARDIOVASCULAR: Regular rate and rhythm without murmurs, gallops, or rubs. RESPIRATORY: Breath sounds equal bilaterally. No accessory muscle use. GASTROINTESTINAL: Abdomen soft, non-tender, nondistended. MUSCULOSKELETAL: No cyanosis, or edema. BACK: Nontender without obvious deformity. No CVA tenderness. Results - Labs CBC & Chem 7: 06/02/18 06:08 06/04/18 04:39 Laboratory Results - last 24 hr 06/04/18 04:39 Sodium 143 Potassium 3.4 L Chloride 105 Carbon Dioxide 26.5 Anion Gap 12 BUN 2 L Creatinine 0.95 Estimated GFR 58 L Random Glucose 87 Calcium 8.0 L Total Bilirubin 0.5 AST 13 L ALT 18 Alkaline Phosphatase 66 Total Protein 5.1 L Albumin 2.7 L - Procedures None Assessment and Plan - Assessment (1) Intractable diarrhea Code(s): R19.7 - Diarrhea, unspecified Status: Acute (2) Intractable nausea and vomiting Code(s): R11.2 - Nausea with vomiting, unspecified Status: Acute - Plan 72-year-old female with 1. Intractable diarrhea-Improve CT A/P showing diverticulosis without diverticulitis, renal cyst, and atherosclerosis 2/2 chemotherapy ; C. difficile PCR negative. Treat with antidiarrhea motility agent IV rehydration with D5-1/2NS-KCl at 100 mL/h 2. Intractable nausea and vomiting-Improved 2/2 chemotherapy as well IV hydration as above Zofran , scopolamine TD and Reglan as needed 3. Hypokalemia Improving with potassium supplement 4. FRANKLIN Prerenal, Improving with IV fluid hydration. Monitor BUN and creatinine 5. Stage IV lung cancer Known to Dr. Kang. 6. COPD Not in acute exacerbation Supplemental O2 as needed 7. Hypertension Continue home metoprolol Continue losartan and HCTZ 8. Hypothyroidism Continue home levothyroxine 9. SLE Continue home Plaquenil DVT prophylaxis: Lovenox
--- NOTE | 2018-06-04 10:05 | P.DS ---
Date of admission: 05/31/18 16:59 Primary care physician: UNKNOWN Anticipated date of discharge: 06/04/18 Brief History from admission: 72 year old female with stage IV lung adenocarcinoma, HTN, hypothyroidism, and SLE presenting from her oncologist's office for intractable nausea, vomiting, and diarrhea. She was recently diagnosed with lung cancer in the last couple months after a routine pre-op CXR showed lung nodules. She was hospitalized 04/12-04/14 secondary to post-biopsy pneumothorax. The patient was set up with Dr. Kang and underwent her first round of chemo about 3-4 weeks ago. She states shortly after she developed diarrhea and was due for her second round of chemo on 05/20 but because of ongoing diarrhea, dehydration, and hypokalemia it was postponed. She was treated with fluids and her potassium was repleted. Her diarrhea persisted and she developed nausea and vomiting that wasn 't responsive to Zofran, Phenergan, or Imodium. She hasn't been able to keep anything down. If she eats she vomits and if she drinks anything she has almost instant liquid diarrhea. She states she had multiple bouts of diarrhea overnight and last time she vomited was yesterday. She endorses feeling cold all the time but denies fever. She denies current abdominal pain but states just prior to diarrhea she has severe abdominal cramping. She denies melena or hematochezia. Her diarrhea has become so bad she has had to wear Depends. She endorses some soreness in her bottom and over her ribs. Inpatient Certification I certify that the inpatient services were ordered in accordance with Medicare regulations governing the order. This includes certification that hospital inpatient services are reasonable and necessary and in the case of services not specified as inpatient-only under 42 CFR 419.22(n), that they are appropriately provided as inpatient services in accordance to with the 2-midnight benchmark under 43 CFR 412.3(e) DS: Diagnosis - Discharge Diagnosis (1) Intractable diarrhea Status: Acute (2) Intractable nausea and vomiting Status: Acute DS: Medications - Discharge Medications Prescriptions: diphenoxylate-atropine 1 tab PO Q6H PRN #30 tab PRN Reason: Diarrhea DS: Summary Hospital Course: While in hospital, patient was treated for: 1. Intractable diarrhea-Improve CT A/P showing diverticulosis without diverticulitis, renal cyst, and atherosclerosis 2/2 chemotherapy ; C. difficile PCR negative. Treated with antidiarrhea motility agent IV rehydration with D5-1/2NS-KCl at 100 mL/h 2. Intractable nausea and vomiting-Improved 2/2 chemotherapy as well IV hydration as above Treated with Zofran , scopolamine TD and Reglan as needed 3. Hypokalemia Improving with potassium supplement 4. FRANKLIN Prerenal, Improving with IV fluid hydration. Monitor BUN and creatinine 5. Stage IV lung cancer Known to Dr. Kang. Consultation pending 6. COPD Not in acute exacerbation Supplemental O2 as needed 7. Hypertension Continue home metoprolol Continue losartan and HCTZ 8. Hypothyroidism Continue home levothyroxine 9. SLE Continue home Plaquenil DVT prophylaxis: Lovenox - Time Spent with Patient Total time spent providing and/or coordinating discharge services: Less than 30 minutes - Quality: VTE Deep Vein Thrombosis/Pulmonary Embolism Present on Admission: No Exam Vital signs: Vital Signs 06/03/18 12:00 06/03/18 16:00 06/03/18 20:03 Temperature 98.9 F 98.3 F Pulse Rate 71 70 73 Respiratory Rate 16 18 Blood Pressure 155/90 H 138/94 H Pulse Oximetry 94 L 99 06/03/18 20:53 06/04/18 00:00 06/04/18 00:43 Temperature 98.4 F 98.5 F Pulse Rate 69 67 66 Respiratory Rate 18 16 Blood Pressure 150/89 H 140/80 Pulse Oximetry 97 96 06/04/18 04:00 06/04/18 04:12 06/04/18 07:00 Temperature 98.3 F Pulse Rate 59 L 66 69 Respiratory Rate 15 Blood Pressure 148/88 H Pulse Oximetry 100 06/04/18 09:27 Temperature 98.8 F Pulse Rate 67 Respiratory Rate 18 Blood Pressure 147/90 H Pulse Oximetry 98 Intake & Output 06/03/18 06/04/18 06/04/18 18:59 06:59 18:59 Intake Total 2460 / 2460 1240 / 1240 Balance 2460 / 2460 1240 / 1240 Weight 45 kg Intake: IV 2099 / 2099 1000 / 1000 D5W/1/2NS + KCL 20 mEq Inj , 1999 / 1999 1000 / 1000 000 ML @ 100 mls/hr IV.CONT . Q10H [facility] Rx#:[id number] KCl 40 mEq Premix Inj 40 meq In 100 / 100 100 ml @ 25 mls/hr IV.SIG ONCE ONE Rx#:[id number] Oral 360 / 360 240 / 240 Other: # Voids 4 2 Date of Last Bowel Movement 06/03/18 06/04/18 06/04/18 # Bowel Movements 3 2 Narrative: GENERAL: NAD SKIN: Warm and dry. HEAD: Normocephalic. EYES: No scleral icterus. No injection or drainage. NECK: Supple, trachea midline. No JVD or lymphadenopathy. CARDIOVASCULAR: Regular rate and rhythm without murmurs, gallops, or rubs. RESPIRATORY: Breath sounds equal bilaterally. No accessory muscle use. GASTROINTESTINAL: Abdomen soft, non-tender, nondistended. MUSCULOSKELETAL: No cyanosis, or edema. BACK: Nontender without obvious deformity. No CVA tenderness. Results Procedures completed during hospitalization: None Labs on day of discharge: Labs from last 24 hours 06/04/18 04:39 Sodium 143 Potassium 3.4 L Chloride 105 Carbon Dioxide 26.5 Anion Gap 12 BUN 2 L Creatinine 0.95 Estimated GFR 58 L Random Glucose 87 Calcium 8.0 L Total Bilirubin 0.5 AST 13 L ALT 18 Alkaline Phosphatase 66 Total Protein 5.1 L Albumin 2.7 L - Impressions ITS Impressions Abdomen/Pelvis CT 05/31/18 13:30 CONCLUSION: 1. Diverticulosis without diverticulitis. 2. Renal cysts. 3. Atherosclerosis. Discharge Plan - Discharge Disposition Patient Disposition: Discharge Home - Discharge Condition Condition: Good - Discharge Order Discharge Orders: Discharge Order (Routine); Ordered 06/04/18 Ordered By: Ronnie Perla - Physicians Team Primary Care Provider: UNKNOWN, Attending Provider: Ronnie Perla Other Providers: Werner Kang MD
[2018-06-04 11:38] VITALS: PULSE 75; TEMP 98.1; O2SAT 96
[2018-06-04] MEDS ORDERED: Heparin Central Flush 100 UNIT/ML 5 ML Vial IV.FLUSH ONE (11:45)
[2018-06-04 11:59] VITALS: BP 157/90
[2018-06-06] MEDS ORDERED: [UNRECOGNIZED DRUG - REMARK] T-DERMAL SCH (17:00)
== END 2018-06-04 12:51 | disposition home or self-care (01) ==
LOC: NEDA 11:44 → NEPC 11:44 → HCIN 19:19
PROVIDERS: ADMIT Hospitalist; ATTEND Hospitalist

== ENCOUNTER 2018-06-08 13:09 | Inpatient (IN) ==
[2018-06-08] MEDS ORDERED: Sod Chloride 0.9% Inj 1,000 ML IV.SIG ONE ×2 (14:51→16:16)
--- NOTE | 2018-06-08 14:51 | ED ---
HPI General Chief complaint: Nausea/Vomiting/Diarrhea Stated complaint: medical Time Seen by Provider: 06/08/18 14:39 Source: patient, family and old records reviewed Mode of arrival: ambulatory Limitations: no limitations History of Present Illness HPI Narrative: The patient is a 73-year-old female presenting with complaint of nausea vomiting and diarrhea. She has a stage IV adenocarcinoma of the lung and had chemo approximately 6 weeks ago but she was not been able to tolerate it because of hypokalemia. Dr. Kang is her oncologist. She called him today and notified him about her symptoms And was recommended to come to the ED for further evaluation. The patient states that since Wednesday when she was discharged she has about 5-6 bowel movements per day it seemed like it was improving however she started having watery diarrhea again. The patient is unable to tolerate anything by mouth. MD complaint: nausea, vomiting, diarrhea and abdominal pain Onset (ago): day(s) (5) Description of Vomiting: food contents Description of Diarrhea: watery Associated Abdominal Pain: Yes Location of pain: diffuse Severity: mild Quality: cramping Pain Consistency: now resolved Relieving factors: none Exacerbating factors: eating Associated symptoms: loss of appetite, malaise and weakness Related Data Home Medications Medication Instructions Recorded Confirmed amlodipine [Norvasc] 5 mg PO DAILY 04/12/18 06/08/18 hydroxychloroquine 200 mg PO BID 04/12/18 06/08/18 levothyroxine 50 mcg PO DAILY 04/12/18 06/08/18 losartan-hydrochlorothiazide 1 tab PO DAILY 04/12/18 06/08/18 ondansetron HCl 8 mg PO TID PRN 04/27/18 06/08/18 pantoprazole 40 mg PO DAILY 04/27/18 06/08/18 cholecalciferol (vitamin D3) 1,000 unit PO DAILY 05/31/18 06/08/18 [Vitamin D3] cyanocobalamin (vitamin B-12) 1,000 mcg PO DAILY 05/31/18 06/08/18 [Vitamin B-12] Previous Rx's Medication Instructions Recorded diphenoxylate-atropine 1 tab PO Q6H PRN #30 tab 06/04/18 scopolamine base [Transderm-Scop] 1 patch TRANSDERMAL Q72H #2 ea 06/04/18 Allergies Allergy/AdvReac Type Severity Reaction Status Date / Time No Known Allergies Allergy Verified 04/12/18 08:12 Review of Systems ROS: all other systems reviewed are negative PMFSH History History Provided By: Patient, Family Member and Medical Record Medical History Medical History COPD (chronic obstructive pulmonary disease) (Acute) Cataract fragments in eye following surgery (Acute) Chemotherapy induced nausea and vomiting (Acute) DVT (deep venous thrombosis) (Acute) GERD (gastroesophageal reflux disease) (Acute) HTN (hypertension) (Acute) Hypothyroid (Acute) Lung cancer (Acute) Lupus (Acute) Surgical History Surgical History H/O foot surgery (Acute) H/O hysterectomy with oophorectomy (Acute) H/O lumbar discectomy (Acute) Hx of tonsillectomy (Acute) Family History Family History Father Myocardial infarction Mother Stroke Social History Social History Substance History: No History of Abuse Second Hand Smoke Exposure: No Smoking Status: Former smoker Tobacco Type: Cigarettes How Often Do You Have a Drink Containing Alcohol: Monthly or less Exam Narrative Exam Narrative: GENERAL: Cachectic masticated appears older than age. SKIN: Focused skin assessment warm/dry. Poor turgor HEAD: Atraumatic. Normocephalic. Bitemporal wasting EYES: Pupils equal and round. No scleral icterus. No injection or drainage. ENT: No nasal bleeding or discharge. Mucous membranes pink and moist. NECK: Trachea midline. No JVD. CARDIOVASCULAR: Regular rate and rhythm. No murmur appreciated. RESPIRATORY: No accessory muscle use. Clear to auscultation. Breath sounds equal bilaterally. GASTROINTESTINAL: Abdomen soft, diffuse abdominal pain., nondistended. Hepatic and splenic margins not palpable. MUSCULOSKELETAL: No obvious deformities. No clubbing. No cyanosis. No edema. NEUROLOGICAL: Awake and alert. No obvious cranial nerve deficits. Motor grossly within normal limits. Normal speech. PSYCHIATRIC: Appropriate mood and affect; insight and judgment normal. Course Reevaluation(s) Reevaluation #1: Patient feels much better after Reglan was given. She has a marginal hypokalemia that we will can replace via p.o. potassium that way we will have a p.o. challenge to see if she can tolerate p.o. and actually be discharged home on Reglan. Time: 16:30 Initial Documented Vital Signs Temperature 97.1 F L 06/08/18 13:14 Pulse Rate 83 06/08/18 13:14 Blood Pressure 126/83 06/08/18 13:14 Pulse Oximetry 97 06/08/18 13:14 Last Documented Vital Signs Temperature 98.3 F 06/09/18 16:00 Pulse Rate 73 06/09/18 16:00 Respiratory Rate 21 06/09/18 16:00 Blood Pressure 166/82 H 06/09/18 16:00 Pulse Oximetry 95 06/09/18 16:00 Medical Decision Making [facility] Narrative Medical Screen Exam Complete: Yes Emergency Medical Condition: Yes Lab Data Result diagrams: 06/09/18 05:11 06/09/18 05:11 Lab Results 06/08/18 06/08/18 06/08/18 Range/Units 15:23 15:40 15:40 WBC 6.8 (4.0-11.0) th/mm3 RBC 4.24 (4.00-5.30) mil/mm3 Hgb 12.5 (11.6-15.3) gm/dL Hct 36.8 (35.0-46.0) % MCV 86.8 (80.0-100.0) fL MCH 29.5 (27.0-34.0) pg MCHC 34.0 (32.0-36.0) % RDW 17.8 H (11.6-17.2) % Plt Count 231 (150-450) th/mm3 MPV 8.6 (7.0-11.0) fL Neut % (Auto) 67.5 (16.0-70.0) % Lymph % (Auto) 19.7 (9.0-44.0) % [place] % (Auto) 12.3 H (0.0-8.0) % Eos % (Auto) 0.2 (0.0-4.0) % Baso % (Auto) 0.3 (0.0-2.0) % Neut # (Auto) 4.6 (1.8-7.7) th/mm3 Lymph # (Auto) 1.3 (1.0-4.8) th/mm3 [place] # (Auto) 0.8 (0.0-0.9) th/mm3 Eos # (Auto) 0.0 (0.0-0.4) th/mm3 Baso # (Auto) 0.0 (0.0-0.2) th/mm3 WBC Differential . Differential Comment Auto diff final PT 11.4 (9.8-11.6) sec INR 1.1 Ratio APTT 25.4 (24.3-30.1) sec Sodium (136-145) meq/L Potassium (3.5-5.1) meq/L Chloride (98-107) meq/L Carbon Dioxide (21.0-32.0) meq/L Anion Gap (5-15) meq/L BUN (7-18) mg/dL Creatinine (0.50-1.00) mg/dL Estimated GFR (>89) mL/min Random Glucose (74-106) mg/dL Lactic Acid (0.4-2.0) mmol/L Calcium (8.5-10.1) mg/dL Prot Corrected Calcium (8.5-10.1) mg/dL Magnesium (1.5-2.5) mg/dL Total Bilirubin (0.2-1.0) mg/dL AST (15-37) U/L ALT (10-53) U/L Alkaline Phosphatase (45-117) U/L Total Protein (6.4-8.2) g/dL Albumin (3.4-5.0) g/dL Urine Color Michelle (Yellw/Straw) Urine Clarity Hazy H (Clear) Urine pH 6.0 (5.0-8.5) Ur Specific [place] 1.019 (1.002-1.035) Urine Protein 30 H (Neg-Trace) mg/dL Urine Glucose (UA) Negative (Negative) mg/dL Urine Ketones 20 (Negative) mg/dL Urine Occult Blood Negative (Negative) Urine Nitrate Negative (Negative) Urine Bilirubin Negative (Negative) Urine Urobilinogen Less than 2 (Less than 2) mg/dL Ur Leukocyte Esterase Negative (Negative) Urine RBC 1 (0-3) /hpf Urine WBC 7 H (0-5) /hpf Ur Squamous Epith Cells 7 (0-5) /hpf Hyaline Casts 25 (0-3) /lpf Urine Mucus Few H (Occasional) /lpf Micro UA Comment Culture not ind Ur Microscopic Review Not Reportable Urine Culture Comments Culture not ind St C. diff Tox Epid 027 (Negative) C. difficile Tox (PCR) (Negative) 06/08/18 06/08/18 06/08/18 Range/Units 15:40 15:40 15:42 WBC (4.0-11.0) th/mm3 RBC (4.00-5.30) mil/mm3 Hgb (11.6-15.3) gm/dL Hct (35.0-46.0) % MCV (80.0-100.0) fL MCH (27.0-34.0) pg MCHC (32.0-36.0) % RDW (11.6-17.2) % Plt Count (150-450) th/mm3 MPV (7.0-11.0) fL Neut % (Auto) (16.0-70.0) % Lymph % (Auto) (9.0-44.0) % [place] % (Auto) (0.0-8.0) % Eos % (Auto) (0.0-4.0) % Baso % (Auto) (0.0-2.0) % Neut # (Auto) (1.8-7.7) th/mm3 Lymph # (Auto) (1.0-4.8) th/mm3 [place] # (Auto) (0.0-0.9) th/mm3 Eos # (Auto) (0.0-0.4) th/mm3 Baso # (Auto) (0.0-0.2) th/mm3 WBC Differential Differential Comment PT (9.8-11.6) sec INR Ratio APTT (24.3-30.1) sec Sodium 139 (136-145) meq/L Potassium 2.3 L* (3.5-5.1) meq/L Chloride 99 (98-107) meq/L Carbon Dioxide 25.4 (21.0-32.0) meq/L Anion Gap 15 (5-15) meq/L BUN 15 (7-18) mg/dL Creatinine 1.32 H (0.50-1.00) mg/dL Estimated GFR 40 L (>89) mL/min Random Glucose 77 (74-106) mg/dL Lactic Acid 1.1 (0.4-2.0) mmol/L Calcium 8.0 L (8.5-10.1) mg/dL Prot Corrected Calcium (8.5-10.1) mg/dL Magnesium 1.3 L (1.5-2.5) mg/dL Total Bilirubin 0.6 (0.2-1.0) mg/dL AST 25 (15-37) U/L ALT 25 (10-53) U/L Alkaline Phosphatase 85 (45-117) U/L Total Protein 6.1 L D (6.4-8.2) g/dL Albumin 3.3 L (3.4-5.0) g/dL Urine Color (Yellw/Straw) Urine Clarity (Clear) Urine pH (5.0-8.5) Ur Specific [place] (1.002-1.035) Urine Protein (Neg-Trace) mg/dL Urine Glucose (UA) (Negative) mg/dL Urine Ketones (Negative) mg/dL Urine Occult Blood (Negative) Urine Nitrate (Negative) Urine Bilirubin (Negative) Urine Urobilinogen (Less than 2) mg/dL Ur Leukocyte Esterase (Negative) Urine RBC (0-3) /hpf Urine WBC (0-5) /hpf Ur Squamous Epith Cells (0-5) /hpf Hyaline Casts (0-3) /lpf Urine Mucus (Occasional) /lpf Micro UA Comment Ur Microscopic Review Urine Culture Comments St C. diff Tox Epid 027 (Negative) C. difficile Tox (PCR) (Negative) 06/08/18 06/08/18 06/09/18 Range/Units 23:05 23:52 05:11 WBC 5.4 (4.0-11.0) th/mm3 RBC 3.50 L (4.00-5.30) mil/mm3 Hgb 10.6 L (11.6-15.3) gm/dL Hct 30.7 L (35.0-46.0) % MCV 87.7 (80.0-100.0) fL MCH 30.2 (27.0-34.0) pg MCHC 34.4 (32.0-36.0) % RDW 18.2 H (11.6-17.2) % Plt Count 199 (150-450) th/mm3 MPV 8.7 (7.0-11.0) fL Neut % (Auto) 58.2 (16.0-70.0) % Lymph % (Auto) 25.1 (9.0-44.0) % [place] % (Auto) 13.3 H (0.0-8.0) % Eos % (Auto) 2.8 (0.0-4.0) % Baso % (Auto) 0.6 (0.0-2.0) % Neut # (Auto) 3.1 (1.8-7.7) th/mm3 Lymph # (Auto) 1.3 (1.0-4.8) th/mm3 [place] # (Auto) 0.7 (0.0-0.9) th/mm3 Eos # (Auto) 0.1 (0.0-0.4) th/mm3 Baso # (Auto) 0.0 (0.0-0.2) th/mm3 WBC Differential . Differential Comment Auto diff final PT (9.8-11.6) sec INR Ratio APTT (24.3-30.1) sec Sodium 143 (136-145) meq/L Potassium 2.8 L* (3.5-5.1) meq/L Chloride 108 H D (98-107) meq/L Carbon Dioxide 23.0 (21.0-32.0) meq/L Anion Gap 12 (5-15) meq/L BUN 12 (7-18) mg/dL Creatinine 1.06 H (0.50-1.00) mg/dL Estimated GFR 51 L (>89) mL/min Random Glucose 65 L (74-106) mg/dL Lactic Acid (0.4-2.0) mmol/L Calcium 6.9 L* D (8.5-10.1) mg/dL Prot Corrected Calcium 8.2 L (8.5-10.1) mg/dL Magnesium (1.5-2.5) mg/dL Total Bilirubin (0.2-1.0) mg/dL AST (15-37) U/L ALT (10-53) U/L Alkaline Phosphatase (45-117) U/L Total Protein 4.7 L D (6.4-8.2) g/dL Albumin (3.4-5.0) g/dL Urine Color (Yellw/Straw) Urine Clarity (Clear) Urine pH (5.0-8.5) Ur Specific [place] (1.002-1.035) Urine Protein (Neg-Trace) mg/dL Urine Glucose (UA) (Negative) mg/dL Urine Ketones (Negative) mg/dL Urine Occult Blood (Negative) Urine Nitrate (Negative) Urine Bilirubin (Negative) Urine Urobilinogen (Less than 2) mg/dL Ur Leukocyte Esterase (Negative) Urine RBC (0-3) /hpf Urine WBC (0-5) /hpf Ur Squamous Epith Cells (0-5) /hpf Hyaline Casts (0-3) /lpf Urine Mucus (Occasional) /lpf Micro UA Comment Ur Microscopic Review Urine Culture Comments St C. diff Tox Epid 027 Negative (Negative) C. difficile Tox (PCR) Negative (Negative) 06/09/18 Range/Units 05:11 WBC (4.0-11.0) th/mm3 RBC (4.00-5.30) mil/mm3 Hgb (11.6-15.3) gm/dL Hct (35.0-46.0) % MCV (80.0-100.0) fL MCH (27.0-34.0) pg MCHC (32.0-36.0) % RDW (11.6-17.2) % Plt Count (150-450) th/mm3 MPV (7.0-11.0) fL Neut % (Auto) (16.0-70.0) % Lymph % (Auto) (9.0-44.0) % [place] % (Auto) (0.0-8.0) % Eos % (Auto) (0.0-4.0) % Baso % (Auto) (0.0-2.0) % Neut # (Auto) (1.8-7.7) th/mm3 Lymph # (Auto) (1.0-4.8) th/mm3 [place] # (Auto) (0.0-0.9) th/mm3 Eos # (Auto) (0.0-0.4) th/mm3 Baso # (Auto) (0.0-0.2) th/mm3 WBC Differential Differential Comment PT (9.8-11.6) sec INR Ratio APTT (24.3-30.1) sec Sodium 142 (136-145) meq/L Potassium 3.0 L (3.5-5.1) meq/L Chloride 109 H (98-107) meq/L Carbon Dioxide 20.6 L (21.0-32.0) meq/L Anion Gap 12 (5-15) meq/L BUN 10 (7-18) mg/dL Creatinine 1.01 H (0.50-1.00) mg/dL Estimated GFR 54 L (>89) mL/min Random Glucose 57 L (74-106) mg/dL Lactic Acid (0.4-2.0) mmol/L Calcium 7.3 L* (8.5-10.1) mg/dL Prot Corrected Calcium 8.6 (8.5-10.1) mg/dL Magnesium 1.6 (1.5-2.5) mg/dL Total Bilirubin 0.4 (0.2-1.0) mg/dL AST 23 (15-37) U/L ALT 19 (10-53) U/L Alkaline Phosphatase 69 (45-117) U/L Total Protein 4.8 L (6.4-8.2) g/dL Albumin 2.6 L D (3.4-5.0) g/dL Urine Color (Yellw/Straw) Urine Clarity (Clear) Urine pH (5.0-8.5) Ur Specific [place] (1.002-1.035) Urine Protein (Neg-Trace) mg/dL Urine Glucose (UA) (Negative) mg/dL Urine Ketones (Negative) mg/dL Urine Occult Blood (Negative) Urine Nitrate (Negative) Urine Bilirubin (Negative) Urine Urobilinogen (Less than 2) mg/dL Ur Leukocyte Esterase (Negative) Urine RBC (0-3) /hpf Urine WBC (0-5) /hpf Ur Squamous Epith Cells (0-5) /hpf Hyaline Casts (0-3) /lpf Urine Mucus (Occasional) /lpf Micro UA Comment Ur Microscopic Review Urine Culture Comments St C. diff Tox Epid 027 (Negative) C. difficile Tox (PCR) (Negative) Imaging Data Radiologist's impression: Chest X-Ray 06/08/18 15:08 CONCLUSION: 1. No acute abnormality or significant interval change. Discharge Plan Discharge Disposition Patient Disposition: 30 Still Patient Discharge Condition Condition: Fair Discharge Details Diagnosis: Intractable diarrhea, Intractable nausea and vomiting, Mass of right lung Physicians Team ED Provider: Melo Murillo Primary Care Provider: Cristofer Carrion Attending Provider: Teto Jara Other Providers: Werner Kang ; Harish Hogue Discharge Interventions Interventions: ED Discharge Assessment Last Done: 06/08/18 20:35 Vital Signs Last Done: 06/08/18 15:01 Status ED Status: Left Department Discharge Information Discharge Date/Time: 06/08/18 20:36
--- NOTE | 2018-06-08 15:59 | XR ---
EXAM DATE: 06/08/2018 3:55 PM EDT AGE/SEX: 72 years / Female INDICATIONS: Fever. CLINICAL DATA: This is the patient's sequela encounter. Patient reports that signs and symptoms have been present for 1 day and indicates a pain score of 0/10. MEDICAL/SURGICAL HISTORY: Carcinoma, lung. None. Infusaport. COMPARISON: [facility], CHEST 1V SINGLE AP, 04/14/2018. . FINDINGS: Right IJ [id number] in good position. No significant new focal pleural or parenchymal opacities. C ardiomediastinal contours are within normal limits. Bony thorax is intact. CONCLUSION: 1. No acute abnormality or significant interval change. Electronically signed by: Ronny Duncan MD 06/08/2018 3:57 PM EDT
[2018-06-08 16:21] LABS: Baso % (Auto) 0.3 % (0.0-2.0); Eos % (Auto) 0.2 % (0.0-4.0); Hematocrit 36.8 % (35.0-46.0); Hemoglobin 12.5 gm/dL (11.6-15.3); Lymph # (Auto) 1.3 th/mm3 (1.0-4.8); Lymph % (Auto) 19.7 % (9.0-44.0); Mean Corpuscular Hemoglobin 29.5 pg (27.0-34.0); Mean Corpuscular Volume 86.8 fL (80.0-100.0); Mean Platelet Volume 8.6 fL (7.0-11.0); Mono # (Auto) 0.8 th/mm3 (0.0-0.9); Mono % (Auto) 12.3 % (0.0-8.0); Neut # (Auto) 4.6 th/mm3 (1.8-7.7); Neut % (Auto) 67.5 % (16.0-70.0); Platelet Count 231 th/mm3 (150-450); Red Blood Count 4.24 mil/mm3 (4.00-5.30); Red Cell Distribution Width 17.8 % (11.6-17.2); White Blood Count 6.8 th/mm3 (4.0-11.0)
[2018-06-08 16:30] LABS: Bilirubin,Urine Negative (Negative); Clarity,Urine Hazy (Clear); Color,Urine Amber (Yellw/Straw); Glucose,Urine (UA) Negative (Negative); Hyaline Casts,Urine 25 /lpf (0-3); Leukocyte Esterase,Urine Negative (Negative); Mucus,Urine Few /lpf (Occasional); Nitrite,Urine Negative (Negative); Specific Gravity,Urine 1.019 (1.002-1.035); Squamous Epithelial Cell,Urine 7 /hpf (0-5)
[2018-06-08 16:32] LABS: Activated Partial Thrombo Time 25.4 sec (24.3-30.1); INR 1.1 Ratio; Prothrombin Time 11.4 sec (9.8-11.6)
[2018-06-08 16:47] LABS: Alanine Aminotransferase 25 U/L (10-53); Albumin 3.3 g/dL (3.4-5.0); Alkaline Phosphatase 85 U/L (45-117); Anion Gap 15 meq/L (5-15); Aspartate Aminotransferase 25 U/L (15-37); Blood Urea Nitrogen 15 mg/dL (7-18); Carbon Dioxide 25.4 meq/L (21.0-32.0); Chloride 99 meq/L (98-107); Glomerular Filtration Rate 40 mL/min (>89); Glucose,Random 77 mg/dL (74-106); Sodium 139 meq/L (136-145); Total Protein 6.1 g/dL (6.4-8.2)
[2018-06-08 16:50] LABS: Potassium 2.3 meq/L (3.5-5.1)
[2018-06-08] MEDS ORDERED: Potassium Chlor 20 mEq Premix 20 MEQ/100 ML PIGGYBACK IV.SIG ONE (16:51)
[2018-06-08] MEDS ORDERED: Bisacodyl 10 MG Supp RECTAL PRN (17:18)
[2018-06-08] MEDS ORDERED: Acetaminophen 325 MG Tablet PO PRN (17:18)
[2018-06-08] MEDS ORDERED: Heparin - SQ 10,000 UNITS/ML Vial SQ SCH (20:00)
[2018-06-08] MEDS: Potassium Chlor 10 mEq Premix 10 MEQ/100 ML PIGGYBACK IV.SIG SCH ×2 (21:14→23:27)
--- NOTE | 2018-06-08 22:56 | P.HPIM ---
History of Present Illness Service: [facility] hospitalists . Primary Care Physician: Cristofer Carrion MD Chief Complaint: Intractable nausea with vomiting and diarrhea History of Present Illness: Mrs. Pleitez is a 73-year-old female with a history of stage IV lung cancer, lupus, COPD, hypothyroidism, hypertension, GERD, and DVT who presented to the ER with complaints of nausea vomiting and diarrhea. She had chemo approximately 6 weeks ago but she has not been able to tolerate it because of nausea, vomiting, and electrolyte abnormalities. Dr. Kang is her oncologist who recommended that she present to the emergency room. She is admitted to the hospitalist service for further evaluation and medical management. The patient is seen in her hospital room. She reports abdominal pain with nausea and vomiting for the last 6 weeks since receiving chemotherapy for lung cancer. She was hospitalized 05/31 through 06/04 with similar complaints. She was discharged when she stabilized, but tells me that her symptom of nausea never really got better and that shortly after discharge the vomiting and diarrhea began. She reports 4-5 loose stools per day with nausea and vomiting occurring about the same amount. She states that food seems to bring her symptoms on. She reports abdominal pain from constant retching and from dry heaves. She reports that Reglan given in the ER seemed to make her nausea a little bit better, but nothing completely ameliorates. She reports a 20 lb weight loss over the past 6 weeks. Inpatient Certification: I certify that the inpatient services were ordered in accordance with Medicare regulations governing the order. This includes certification that hospital inpatient services are reasonable and necessary and in the case of services not specified as inpatient-only under 42 CFR 419.22(n), that they are appropriately provided as inpatient services in accordance to with the 2-midnight benchmark under 43 CFR 412.3(e) Estimated Total Length of Stay (Days): 3 Plans for Post Hospital Care: Home Review of Systems All other systems reviewed negative except as stated in HPI PMFSH - History History Provided By: Patient - Medical History Medical History: Medical History (Last Reviewed 06/09/18 @ 00:37 by JEANNINE Bolanos) COPD (chronic obstructive pulmonary disease) Cataract fragments in eye following surgery Chemotherapy induced nausea and vomiting DVT (deep venous thrombosis) GERD (gastroesophageal reflux disease) HTN (hypertension) Hypothyroid Lung cancer Lupus - Surgical History Surgical History: Surgical History (Last Reviewed 09/06/18 @ 00:37 by JEANNINE Bolanos) H/O foot surgery H/O hysterectomy with oophorectomy H/O lumbar discectomy Hx of tonsillectomy - Family History Family History: Family History (Last Reviewed 06/09/18 @ 00:38 by JEANNINE Bolanos) Father Myocardial infarction Mother Stroke - Tobacco History Second Hand Smoke Exposure: No Tobacco Use In Past 30 Days: No Smoking Status: Former smoker Tobacco Type: Cigarettes - Alcohol History How Often Do You Have a Drink Containing Alcohol: Monthly or less - Substance Use History Substance History: No History of Abuse - Immunization History Tetanus Immunization: <5 Years Hx Influenza Vaccine This Season: No Medications and Allergies Active Medications: Active Medications Acetaminophen (Tylenol) 650 mg PO Q4H PRN PRN Reason: Temp > 100.4 Al Hydroxide/Mg Hydroxide (Milk Of Magnesia Liq) 30 ml PO Q12H PRN PRN Reason: Mild Constipation Amlodipine Besylate (Norvasc) 5 mg PO DAILY [facility] Bisacodyl (Dulcolax Supp) 10 mg RECTAL DAILY PRN PRN Reason: SEVERE CONSITIPATION Enoxaparin Sodium (Lovenox Inj) 40 mg SQ Q24H [facility] Potassium Chloride/Sodium Chloride (Ns + Kcl 20 Meq Inj) 1,000 mls @ 84 mls/hr IV.CONT .[id number] [facility] Last Admin: 06/08/18 21:15 Dose: 84 mls/hr Lactulose (Lactulose Liq) 30 ml PO DAILY PRN PRN Reason: SEVERE CONSITIPATION Levothyroxine Sodium (Synthroid) 50 mcg PO DAILY@0600 [facility] Losartan Potassium (Cozaar) 50 mg PO DAILY [facility] Metoclopramide HCl (Reglan Inj) 5 mg IV.PUSH Q8H PRN; Protocol PRN Reason: NAUSEA OR VOMITING Morphine Sulfate (Morphine Inj) 2 mg IV.PUSH Q3H PRN PRN Reason: pain > 4 Ondansetron HCl (Zofran Inj) 4 mg IV.PUSH Q6H PRN PRN Reason: NAUSEA OR VOMITING Pantoprazole Sodium (Protonix) 40 mg PO DAILY [facility] Sennosides (Senokot) 17.2 mg PO Q12H PRN PRN Reason: Moderate Constipation Allergies Allergy/AdvReac Type Severity Reaction Status Date / Time No Known Allergies Allergy Verified 04/12/18 08:12 Home Medications Medication Instructions Recorded Confirmed Type amlodipine [Norvasc] 5 mg PO DAILY 04/12/18 06/08/18 History hydroxychloroquine 200 mg PO BID 04/12/18 06/08/18 History levothyroxine 50 mcg PO DAILY 04/12/18 06/08/18 History losartan-hydrochlorothiazide 1 tab PO DAILY 04/12/18 06/08/18 History ondansetron HCl 8 mg PO TID PRN 04/27/18 06/08/18 History pantoprazole 40 mg PO DAILY 04/27/18 06/08/18 History cholecalciferol (vitamin D3) 1,000 unit PO DAILY 05/31/18 06/08/18 History [Vitamin D3] cyanocobalamin (vitamin B-12) 1,000 mcg PO DAILY 05/31/18 06/08/18 History [Vitamin B-12] Exam Vital signs: Vital Signs 06/08/18 13:14 06/08/18 15:01 06/08/18 20:16 Temperature 97.1 F L Pulse Rate 83 72 70 Respiratory Rate 16 18 Blood Pressure 126/83 135/73 145/90 H Pulse Oximetry 97 94 L 94 L Intake & Output 06/08/18 06/08/18 06/09/18 06:59 18:59 06:59 Weight 45.359 kg 45.359 kg Other: Weight On Admission 45.359 kg Narrative: GENERAL: This is a small, frail elderly female patient, in no apparent distress. SKIN: No rashes. Cool and dry. HEAD: Atraumatic. Normocephalic. EYES: No scleral icterus. No injection or drainage. ENT: Nose without bleeding, purulent drainage. NECK: Trachea midline. No JVD. CARDIOVASCULAR: Regular rate and rhythm without murmurs, gallops, or rubs. RESPIRATORY: Clear to auscultation. Breath sounds equal bilaterally. No wheezes , rales, or rhonchi. GASTROINTESTINAL: Abdomen soft, non-tender, nondistended. No guarding. MUSCULOSKELETAL: Extremities without clubbing, cyanosis. No calf tenderness. Left ankle s/p remote repair. NEUROLOGICAL: Awake and alert. Motor and sensory grossly within normal limits. Normal speech. . Results - Labs CBC & Chem 7: 06/08/18 15:40 06/08/18 23:05 Labs: Short CBC 06/08/18 Range/Units 15:40 WBC 6.8 (4.0-11.0) th/mm3 Hgb 12.5 (11.6-15.3) gm/dL Hct 36.8 (35.0-46.0) % Plt Count 231 (150-450) th/mm3 BMP 06/08/18 15:40 Sodium 139 Potassium 2.3 L* Chloride 99 Carbon Dioxide 25.4 BUN 15 Creatinine 1.32 H Calcium 8.0 L Liver Function 06/08/18 Range/Units 15:40 Total Bilirubin 0.6 (0.2-1.0) mg/dL AST 25 (15-37) U/L ALT 25 (10-53) U/L Alkaline Phosphatase 85 (45-117) U/L Albumin 3.3 L (3.4-5.0) g/dL Urine 06/08/18 Range/Units 15:23 Urine Color Michelle (Yellw/Straw) Urine Clarity Hazy H (Clear) Urine pH 6.0 (5.0-8.5) Ur Specific [place] 1.019 (1.002-1.035) Urine Protein 30 H (Neg-Trace) mg/dL Urine Glucose (UA) Negative (Negative) mg/dL - Imaging Impressions Chest X-Ray 06/08/18 15:08 CONCLUSION: 1. No acute abnormality or significant interval change. Caprini VTE Risk Assessment Caprini VTE Risk Assessment: Moderate/High Risk (score >= 2) Caprini Risk Assessment Model: Point Value = 1 Point Value = 2 Point Value = 3 Point Value = 5 Age 41-60 Minor surgery BMI > 25 kg/m2 Swollen legs Varicose veins or History of unexplained or recurrent spontaneous Oral contraceptives or hormone replacement Sepsis (< 1 month) Serious lung disease, including pneumonia (< 1 month) Abnormal pulmonary function Acute myocardial infarction Congestive heart failure (< 1 month) History of inflammatory bowel disease Medical patient at bed rest Age 61-74 Arthroscopic surgery Major open surgery (> 45 min) Laparoscopic surgery (> 45 min) Malignancy Confined to bed (> 72 hours) Immobilizing plaster cast Central venous access Age >= 75 History of VTE Family history of VTE Factor V Leiden Prothrombin [id number] Lupus anticoagulant Anticardiolipin antibodies Elevated serum homocysteine Heparin-induced thrombocytopenia Other congenital or acquired thrombophilia Stroke (< 1 month) Elective arthroplasty Hip, pelvis, or leg fracture Acute spinal cord injury (< 1 month) Prophylaxis Regimen: Total Risk Factor Score Risk Level Prophylaxis Regimen 0-1 Low Early ambulation 2 Moderate Order ONE of the following: *Sequential Compression Device (SCD) *Heparin 5000 units SQ BID 3-4 Higher Order ONE of the following medications: *Heparin 5000 units SQ TID *Enoxaparin/Lovenox 40 mg SQ daily (WT < 150 kg, CrCl > 30 mL/min) *Enoxaparin/Lovenox 30 mg SQ daily (WT < 150 kg, CrCl > 10-29 mL/min) *Enoxaparin/Lovenox 30 mg SQ BID (WT < 150 kg, CrCl > 30 mL/min) AND/OR *Sequential Compression Device (SCD) 5 or more Highest Order ONE of the following medications: *Heparin 5000 units SQ TID (Preferred with Epidurals) *Enoxaparin/Lovenox 40 mg SQ daily (WT < 150 kg, CrCl > 30 mL/min) *Enoxaparin/Lovenox 30 mg SQ daily (WT < 150 kg, CrCl > 10-29 mL/min) *Enoxaparin/Lovenox 30 mg SQ BID (WT < 150 kg, CrCl > 30 mL/min) AND *Sequential Compression Device (SCD) Assessment and Plan - Plan Mrs. Pleitez is a 73-year-old female with a history of stage IV lung cancer, lupus, COPD, hypothyroidism, hypertension, GERD, and DVT who presented to the ER with complaints of nausea vomiting and diarrhea. She had chemo approximately 6 weeks ago but she has not been able to tolerate it because of nausea, vomiting, and electrolyte abnormalities. Dr. Kang is her oncologist who recommended that she present to the emergency room. She is admitted to the hospitalist service for further evaluation and medical management. Intractable nausea, vomiting, and diarrhea - We will check for C. difficile - IV morphine as needed for pain - Liquid diet - Continue Protonix - Antiemetics: IV Zofran and Reglan as needed Hypomagnesemia and hypokalemia secondary to vomiting and diarrhea - Replenish potassium and magnesium - Repeat labs and monitor results, replace as indicated - Continuous cardiac telemetry to monitor for arrhythmias Acute kidney injury secondary to dehydration - IV fluid hydration - Monitor renal indices - Avoid nephrotoxins Stage IV lung adenocarcinoma - Consult oncologist -appreciate assistance Resume home medications for hypertension and hypothyroidism DVT prophylaxis - Lovenox 40 mg subcu every 24 hours Discussed Condition With: Dr. Gaytan and patient H&P: Quality - VTE Deep Vein Thrombosis/Pulmonary Embolism Present on Admission: No
[2018-06-08] MEDS: Morphine Inj 4 MG/ML Vial IV.PUSH PRN (23:27)
[2018-06-09 00:11] LABS: Calcium 6.9 mg/dL (8.5-10.1)
[2018-06-09 00:13] LABS: Potassium 2.8 meq/L (3.5-5.1)
[2018-06-09] MEDS ORDERED: Mag Sulf 1 gm/100 ml Premix 100 ML IV.SIG ONE (00:18)
[2018-06-09 00:47] LABS: Total Protein 4.7 g/dL (6.4-8.2)
[2018-06-09] MEDS: Enoxaparin Inj 40 MG/0.4 ML Syringe SQ SCH ×2 (03:52→21:20)
[2018-06-09] MEDS: Morphine Inj 4 MG/ML Vial IV.PUSH PRN (05:19)
[2018-06-09] MEDS: Levothyroxine 50 MCG Tablet PO SCH (05:19)
[2018-06-09 06:14] LABS: Baso % (Auto) 0.6 % (0.0-2.0); Eos # (Auto) 0.1 th/mm3 (0.0-0.4); Eos % (Auto) 2.8 % (0.0-4.0); Hematocrit 30.7 % (35.0-46.0); Hemoglobin 10.6 gm/dL (11.6-15.3); Lymph # (Auto) 1.3 th/mm3 (1.0-4.8); Lymph % (Auto) 25.1 % (9.0-44.0); Mean Corpuscular HGB Conc 34.4 % (32.0-36.0); Mean Corpuscular Hemoglobin 30.2 pg (27.0-34.0); Mean Corpuscular Volume 87.7 fL (80.0-100.0); Mean Platelet Volume 8.7 fL (7.0-11.0); Mono # (Auto) 0.7 th/mm3 (0.0-0.9); Mono % (Auto) 13.3 % (0.0-8.0); Neut # (Auto) 3.1 th/mm3 (1.8-7.7); Neut % (Auto) 58.2 % (16.0-70.0); Platelet Count 199 th/mm3 (150-450); Red Cell Distribution Width 18.2 % (11.6-17.2); White Blood Count 5.4 th/mm3 (4.0-11.0)
[2018-06-09 06:45] LABS: Albumin 2.6 g/dL (3.4-5.0); Calcium 7.3 mg/dL (8.5-10.1); Carbon Dioxide 20.6 meq/L (21.0-32.0); Magnesium 1.6 mg/dL (1.5-2.5); Total Protein 4.8 g/dL (6.4-8.2)
[2018-06-09] MEDS ORDERED: Potassium Chloride 25 MEQ Effervescent Tablet PO ONE (08:31)
[2018-06-09] MEDS: amLODIPine 5 MG Tablet PO SCH (08:35)
[2018-06-09] MEDS: Potassium Chlor 10 mEq Premix 10 MEQ/100 ML PIGGYBACK IV.SIG SCH ×4 (09:09→13:16)
--- NOTE | 2018-06-09 10:17 | P.PNIM ---
Subjective Interval history: Follow up nausea, vomiting and diarrhea. Patient states she is still nauseated and having diarrhea, no vomiting today. Denies any sob, abdominal pain or chest pain. Physical Exam Vital signs: Vital Signs 06/08/18 13:14 06/08/18 15:01 06/08/18 20:16 Temperature 97.1 F L Pulse Rate 83 72 70 Respiratory Rate 16 18 Blood Pressure 126/83 135/73 145/90 H Pulse Oximetry 97 94 L 94 L 06/09/18 00:00 06/09/18 00:30 06/09/18 04:00 Temperature 98.0 F 98.0 F Pulse Rate 71 76 Respiratory Rate 17 17 18 Blood Pressure 134/66 151/82 H Pulse Oximetry 94 L 94 L Intake & Output 06/08/18 06/09/18 06/09/18 18:59 06:59 18:59 Intake Total 1400 / 1400 100 / 100 Balance 1400 / 1400 100 / 100 Weight 45.359 kg 45.359 kg Intake: IV 1400 / 1400 100 / 100 Magnesium Sulfate 1 gm/D5W 100 100 / 100 ml Premix 100 ML @ 100 mls/hr IV.SIG ONCE ONE Rx#:[id number] KCl 10 mEq Premix Inj 10 meq In 200 / 200 100 / 100 100 ml @ 100 mls/hr IV.SIG Q1H KIMBER Rx#:[id number] KCl 20 mEq Premix Inj 20 meq In 100 / 100 100 ml @ 50 mls/hr IV.SIG ONCE ONE Rx#:[id number] NS Inj 1,000 ML @ Wide Open IV. 1000 / 1000 SIG BOLUS ONE Rx#:[id number] Other: Date of Last Bowel Movement 06/08/18 06/09/18 Weight On Admission 45.359 kg Narrative: GENERAL: This is a well-nourished, well-developed patient, in no apparent distress. CARDIOVASCULAR: Regular rate and rhythm without murmurs, gallops, or rubs. RESPIRATORY: Clear to auscultation. Breath sounds equal bilaterally. No wheezes , rales, or rhonchi. GASTROINTESTINAL: Abdomen soft, non-tender, nondistended. Normal active bowel sounds MUSCULOSKELETAL: Extremities without clubbing, cyanosis, or edema. NEURO: Alert & Oriented x4 to person, place, time, situation. Moves all ext x4 Results - Labs CBC & Chem 7: 06/09/18 05:11 06/09/18 05:11 Laboratory Results - last 24 hr 06/08/18 06/08/18 06/08/18 15:23 15:40 15:40 WBC 6.8 RBC 4.24 Hgb 12.5 Hct 36.8 MCV 86.8 MCH 29.5 MCHC 34.0 RDW 17.8 H Plt Count 231 MPV 8.6 Neut % (Auto) 67.5 Lymph % (Auto) 19.7 [place] % (Auto) 12.3 H Eos % (Auto) 0.2 Baso % (Auto) 0.3 Neut # (Auto) 4.6 Lymph # (Auto) 1.3 [place] # (Auto) 0.8 Eos # (Auto) 0.0 Baso # (Auto) 0.0 WBC Differential . Differential Comment Auto diff final PT 11.4 INR 1.1 APTT 25.4 Sodium Potassium Chloride Carbon Dioxide Anion Gap BUN Creatinine Estimated GFR Random Glucose Lactic Acid Calcium Prot Corrected Calcium Magnesium Total Bilirubin AST ALT Alkaline Phosphatase Total Protein Albumin Urine Color Michelle Urine Clarity Hazy H Urine pH 6.0 Ur Specific [place] 1.019 Urine Protein 30 H Urine Glucose (UA) Negative Urine Ketones 20 Urine Occult Blood Negative Urine Nitrate Negative Urine Bilirubin Negative Urine Urobilinogen Less than 2 Ur Leukocyte Esterase Negative Urine RBC 1 Urine WBC 7 H Ur Squamous Epith Cells 7 Hyaline Casts 25 Urine Mucus Few H Micro UA Comment Culture not ind Ur Microscopic Review Not Reportable Urine Culture Comments Culture not ind St C. diff Tox Epid 027 C. difficile Tox (PCR) 06/08/18 06/08/18 06/08/18 15:40 15:40 15:42 WBC RBC Hgb Hct MCV MCH MCHC RDW Plt Count MPV Neut % (Auto) Lymph % (Auto) [place] % (Auto) Eos % (Auto) Baso % (Auto) Neut # (Auto) Lymph # (Auto) [place] # (Auto) Eos # (Auto) Baso # (Auto) WBC Differential Differential Comment PT INR APTT Sodium 139 Potassium 2.3 L* Chloride 99 Carbon Dioxide 25.4 Anion Gap 15 BUN 15 Creatinine 1.32 H Estimated GFR 40 L Random Glucose 77 Lactic Acid 1.1 Calcium 8.0 L Prot Corrected Calcium Magnesium 1.3 L Total Bilirubin 0.6 AST 25 ALT 25 Alkaline Phosphatase 85 Total Protein 6.1 L D Albumin 3.3 L Urine Color Urine Clarity Urine pH Ur Specific [place] Urine Protein Urine Glucose (UA) Urine Ketones Urine Occult Blood Urine Nitrate Urine Bilirubin Urine Urobilinogen Ur Leukocyte Esterase Urine RBC Urine WBC Ur Squamous Epith Cells Hyaline Casts Urine Mucus Micro UA Comment Ur Microscopic Review Urine Culture Comments St C. diff Tox Epid 027 C. difficile Tox (PCR) 06/08/18 06/08/18 06/09/18 23:05 23:52 05:11 WBC 5.4 RBC 3.50 L Hgb 10.6 L Hct 30.7 L MCV 87.7 MCH 30.2 MCHC 34.4 RDW 18.2 H Plt Count 199 MPV 8.7 Neut % (Auto) 58.2 Lymph % (Auto) 25.1 [place] % (Auto) 13.3 H Eos % (Auto) 2.8 Baso % (Auto) 0.6 Neut # (Auto) 3.1 Lymph # (Auto) 1.3 [place] # (Auto) 0.7 Eos # (Auto) 0.1 Baso # (Auto) 0.0 WBC Differential . Differential Comment Auto diff final PT INR APTT Sodium 143 Potassium 2.8 L* Chloride 108 H D Carbon Dioxide 23.0 Anion Gap 12 BUN 12 Creatinine 1.06 H Estimated GFR 51 L Random Glucose 65 L Lactic Acid Calcium 6.9 L* D Prot Corrected Calcium 8.2 L Magnesium Total Bilirubin AST ALT Alkaline Phosphatase Total Protein 4.7 L D Albumin Urine Color Urine Clarity Urine pH Ur Specific [place] Urine Protein Urine Glucose (UA) Urine Ketones Urine Occult Blood Urine Nitrate Urine Bilirubin Urine Urobilinogen Ur Leukocyte Esterase Urine RBC Urine WBC Ur Squamous Epith Cells Hyaline Casts Urine Mucus Micro UA Comment Ur Microscopic Review Urine Culture Comments St C. diff Tox Epid 027 Negative C. difficile Tox (PCR) Negative 06/09/18 05:11 WBC RBC Hgb Hct MCV MCH MCHC RDW Plt Count MPV Neut % (Auto) Lymph % (Auto) [place] % (Auto) Eos % (Auto) Baso % (Auto) Neut # (Auto) Lymph # (Auto) [place] # (Auto) Eos # (Auto) Baso # (Auto) WBC Differential Differential Comment PT INR APTT Sodium 142 Potassium 3.0 L Chloride 109 H Carbon Dioxide 20.6 L Anion Gap 12 BUN 10 Creatinine 1.01 H Estimated GFR 54 L Random Glucose 57 L Lactic Acid Calcium 7.3 L* Prot Corrected Calcium 8.6 Magnesium 1.6 Total Bilirubin 0.4 AST 23 ALT 19 Alkaline Phosphatase 69 Total Protein 4.8 L Albumin 2.6 L D Urine Color Urine Clarity Urine pH Ur Specific [place] Urine Protein Urine Glucose (UA) Urine Ketones Urine Occult Blood Urine Nitrate Urine Bilirubin Urine Urobilinogen Ur Leukocyte Esterase Urine RBC Urine WBC Ur Squamous Epith Cells Hyaline Casts Urine Mucus Micro UA Comment Ur Microscopic Review Urine Culture Comments St C. diff Tox Epid 027 C. difficile Tox (PCR) - Imaging Impressions Chest X-Ray 06/08/18 15:08 CONCLUSION: 1. No acute abnormality or significant interval change. Assessment and Plan - Plan Mrs. Pleitez is a 73-year-old female with a history of stage IV lung cancer, lupus, COPD, hypothyroidism, hypertension, GERD, and DVT who presented to the ER with complaints of nausea vomiting and diarrhea. She had chemo approximately 6 weeks ago but she has not been able to tolerate it because of nausea, vomiting, and electrolyte abnormalities. Dr. Kang is her oncologist who recommended that she present to the emergency room. She is admitted to the hospitalist service for further evaluation and medical management. Intractable nausea, vomiting, and diarrhea - C. difficile negative - IV morphine as needed for pain - Liquid diet - Continue Protonix - Antiemetics: IV Zofran and Reglan as needed -Start Lactinex if patient can tolerate it Hypomagnesemia, resolved hypokalemia, improving secondary to vomiting and diarrhea - Replenish potassium and magnesium - Repeat labs and monitor results, replace as indicated - Continuous cardiac telemetry to monitor for arrhythmias -Add potassium to IVF Acute kidney injury secondary to dehydration, improving Creatine 1.6-->1.1 - Cont IV fluid hydration - Monitor renal function - Avoid nephrotoxins Stage IV lung adenocarcinoma - Consult oncologist -appreciate assistance Resume home medications for hypertension and hypothyroidism DVT prophylaxis - Lovenox 40 mg subcu every 24 hours Discussed Condition With: Patient and RN
[2018-06-09] MEDS: Lactobacillus Acidophilus/L. Spores Tablet PO SCH ×2 (13:16→17:00)
--- NOTE | 2018-06-09 23:54 | P.CON ---
History of Present Illness Service: Oncology Consult date: 06/09/18 Reason for Consult: Lung Cancer, diarrhea, nausea Primary Care Provider: Cristofer Carrion MD Chief Complaint: Intractable nausea with vomiting and diarrhea History of Present Illness: This is a 73-year-old female with a diagnosis of non-small cell lung cancer with adenocarcinoma histology. She has received 1 cycle of carboplatin and Alimta and anti-PDL 1 agent, Keytruda. She has developed persistent nausea and diarrhea. She was discharged from the hospital last week with similar symptoms. She states that she went back home and started to develop nausea and diarrhea. She has left lower quadrant pain. She has not any fevers or chills. She she has become quite weak. In the emergency room she was found to have low potassium. She appeared dehydrated. She was admitted to the hospital for further management. Her potassium was 2.8 and she is currently receiving IV potassium. Her creatinine was 1.06. Her albumin is low at 2.6. She does not have any leukocytosis. She has mild anemia with a hemoglobin of 10.6. White blood cell count is 5.4 and platelet count is 199. He was tested for C. difficile and this is negative. Review of Systems All other systems reviewed negative except as stated in HPI PMFSH - History History Provided By: Patient, Family Member, Medical Record - Medical History Medical History: Medical History (Last Reviewed 06/10/18 @ 00:18 by Werner Kang MD) COPD (chronic obstructive pulmonary disease) Cataract fragments in eye following surgery Chemotherapy induced nausea and vomiting DVT (deep venous thrombosis) GERD (gastroesophageal reflux disease) HTN (hypertension) Hypothyroid Lung cancer Lupus - Surgical History Surgical History: Surgical History (Last Reviewed 06/10/18 @ 00:18 by Werner Kang MD) H/O foot surgery H/O hysterectomy with oophorectomy H/O lumbar discectomy Hx of tonsillectomy - Family History Family History: Family History (Last Reviewed 06/10/18 @ 00:18 by Werner Kang MD) Father Myocardial infarction Mother Stroke - Social History I have reviewed the patient's Social History: Yes - Tobacco History Second Hand Smoke Exposure: No Tobacco Use In Past 30 Days: No Smoking Status: Former smoker Tobacco Type: Cigarettes - Alcohol History How Often Do You Have a Drink Containing Alcohol: Monthly or less - Substance Use History Substance History: No History of Abuse - Immunization History Tetanus Immunization: <5 Years Hx Influenza Vaccine This Season: No Medications and Allergies Active Medications: Active Medications Acetaminophen (Tylenol) 650 mg PO Q4H PRN PRN Reason: Temp > 100.4 Al Hydroxide/Mg Hydroxide (Milk Of Magnesia Liq) 30 ml PO Q12H PRN PRN Reason: Mild Constipation Amlodipine Besylate (Norvasc) 5 mg PO DAILY [facility] Last Admin: 06/09/18 08:35 Dose: 5 mg Bisacodyl (Dulcolax Supp) 10 mg RECTAL DAILY PRN PRN Reason: SEVERE CONSITIPATION Diphenoxylate HCl/Atropine (Lomotil) 1 tab PO Q6H PRN PRN Reason: diarrhea Enoxaparin Sodium (Lovenox Inj) 40 mg SQ Q24H [facility] Last Admin: 06/09/18 21:20 Dose: 40 mg Potassium Chloride/Sodium Chloride (Ns + Kcl 20 Meq Inj) 1,000 mls @ 84 mls/hr IV.CONT .[id number] [facility] Last Admin: 06/09/18 17:00 Dose: 84 mls/hr Lactobacillus Acidophilus (Lactinex) 1 tab PO TID [facility] Last Admin: 06/09/18 17:00 Dose: 1 tab Lactulose (Lactulose Liq) 30 ml PO DAILY PRN PRN Reason: SEVERE CONSITIPATION Levothyroxine Sodium (Synthroid) 50 mcg PO DAILY@0600 [facility] Last Admin: 06/09/18 05:19 Dose: 50 mcg Losartan Potassium (Cozaar) 50 mg PO DAILY [facility] Last Admin: 06/09/18 08:35 Dose: 50 mg Metoclopramide HCl (Reglan Inj) 5 mg IV.PUSH Q8H PRN; Protocol PRN Reason: NAUSEA OR VOMITING Last Admin: 06/09/18 16:59 Dose: 5 mg Morphine Sulfate (Morphine Inj) 2 mg IV.PUSH Q3H PRN PRN Reason: pain > 4 Last Admin: 06/09/18 05:19 Dose: 2 mg Ondansetron HCl (Zofran Inj) 4 mg IV.PUSH Q6H PRN PRN Reason: NAUSEA OR VOMITING Last Admin: 06/09/18 21:20 Dose: 4 mg Pantoprazole Sodium (Protonix) 40 mg PO DAILY [facility] Last Admin: 06/09/18 08:35 Dose: 40 mg Sennosides (Senokot) 17.2 mg PO Q12H PRN PRN Reason: Moderate Constipation Zolpidem Tartrate (Ambien) 10 mg PO HS PRN PRN Reason: pain 6-10 Last Admin: 06/09/18 23:23 Dose: 10 mg Allergies Allergy/AdvReac Type Severity Reaction Status Date / Time No Known Allergies Allergy Verified 04/12/18 08:12 Home Medications Medication Instructions Recorded Confirmed Type amlodipine [Norvasc] 5 mg PO DAILY 04/12/18 06/08/18 History hydroxychloroquine 200 mg PO BID 04/12/18 06/08/18 History levothyroxine 50 mcg PO DAILY 04/12/18 06/08/18 History losartan-hydrochlorothiazide 1 tab PO DAILY 04/12/18 06/08/18 History ondansetron HCl 8 mg PO TID PRN 04/27/18 06/08/18 History pantoprazole 40 mg PO DAILY 04/27/18 06/08/18 History cholecalciferol (vitamin D3) 1,000 unit PO DAILY 05/31/18 06/08/18 History [Vitamin D3] cyanocobalamin (vitamin B-12) 1,000 mcg PO DAILY 05/31/18 06/08/18 History [Vitamin B-12] Physical Exam Vital signs: Vital Signs 06/09/18 00:00 06/09/18 00:30 06/09/18 04:00 Temperature 98.0 F 98.0 F Pulse Rate 71 76 Respiratory Rate 17 17 18 Blood Pressure 134/66 151/82 H Pulse Oximetry 94 L 94 L 06/09/18 08:00 06/09/18 12:00 06/09/18 16:00 Temperature 97.9 F 97.2 F L 98.3 F Pulse Rate 73 75 73 Respiratory Rate 22 20 21 Blood Pressure 164/80 H 162/77 H 166/82 H Pulse Oximetry 94 L 94 L 95 Intake & Output 06/09/18 06/09/18 06/10/18 06:59 18:59 06:59 Intake Total 1400 / 1400 1400 / 1400 820 / 820 Balance 1400 / 1400 1400 / 1400 820 / 820 Weight 45.359 kg Intake: IV 1400 / 1400 1400 / 1400 NS + KCl 20 mEq Inj 1,000 ML @ 1000 / 1000 84 mls/hr IV.CONT .[id number] [facility] Rx#:[id number] Magnesium Sulfate 1 gm/D5W 100 100 / 100 ml Premix 100 ML @ 100 mls/hr IV.SIG ONCE ONE Rx#:[id number] KCl 10 mEq Premix Inj 10 meq In 200 / 200 400 / 400 100 ml @ 100 mls/hr IV.SIG Q1H [facility] Rx#:[id number] KCl 20 mEq Premix Inj 20 meq In 100 / 100 100 ml @ 50 mls/hr IV.SIG ONCE ONE Rx#:[id number] NS Inj 1,000 ML @ Wide Open IV. 1000 / 1000 SIG BOLUS ONE Rx#:[id number] Oral 820 / 820 Other: # Voids 5 Date of Last Bowel Movement 06/08/18 06/09/18 # Bowel Movements 1 2 Weight On Admission 45.359 kg - Constitutional thin, cachectic - Routine HEENT Exam Head: Present: normocephalic - Routine Neck Exam Present: supple, normal carotid upstroke - Routine Respiratory Exam Present: CTA bilaterally - Routine Cardiovascular Exam Present: RRR, S1, S2 - Routine Abdominal Exam Present: soft Comments: hyperacitve bowel sounds, left lower quadrant abdominal pain -no rebound or guarding - Routine Skin Exam Present: intact - Routine Neurological Exam Present: alert, oriented X3, CN II-XII intact Assessment and Plan - Assessment (1) Non-small cell carcinoma of left lung, stage 4 Code(s): C34.92 - Malignant neoplasm of unspecified part of left bronchus or lung Status: Chronic (2) Intractable diarrhea Code(s): R19.7 - Diarrhea, unspecified Status: Acute (3) Intractable nausea and vomiting Code(s): R11.2 - Nausea with vomiting, unspecified Status: Acute - Plan A/P 73-year-old female who has a diagnosis of stage IV non-small cell lung cancer with adenocarcinoma histology. She is currently being treated with carboplatin and Alimta and an anti-PDL 1 agent. She presents to the emergency department with refractory diarrhea nausea and vomiting. 1. Refractory diarrhea--this is quite atypical and had persisted longer than expected after chemotherapy. Although it is rare to have autoimmune colitis after only one treatment of an anti-PDL 1 agent. 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 I will start her on on steroids. This is the first line treatment for autoimmune- colitis precipitated by immunotherapy. We will ask gastroenterology to see this patient. We will consider colonoscopy/biopsy to assess her GI tract for evidence of auto-immune colitis. I would also recommend obtaining a CT scan of the abdomen and pelvis with contrast. We will continue supportive care. Continue IV fluids. Aggressively replete electrolytes. Continue antispasmodics prn #2 hypokalemia check daily electrolytes and replete as needed #3 dehydration continue IV fluids #4 nausea continue IV Zofran as needed. Compazine as needed. She could not tolerate a trial of scopolamine during her last visit. We will avoid the scopolamine patch. #5 stage IV non-small cell lung cancer--further treatment on hold. She will be reassessed in the outpatient setting. Thank you for allowing me to participate in the care of this patient. The oncology team will continue to follow this patient along. (3) Intractable nausea and vomiting Qualifiers: Vomiting type: unspecified Qualified Code(s): R11.2 - Nausea with vomiting, unspecified
--- NOTE | 2018-06-10 00:33 | ECG ---
Date Performed: 06/08/2018 Time Performed: 21:08:24 PTAGE: 72 years EKG: Sinus rhythm NONSPECIFIC T-WAVE ABNORMALITY BORDERLINE ECG PREVIOUS TRACING : 05/31/2018 22.31 Since the previous tracing, no significant change noted DOCTOR: Twin Carrasco Interpretating Date/Time 06/10/2018 00:31:46
[2018-06-10] MEDS: Diphenoxylate/Atropine 2.5/0.025 MG Tablet PO PRN ×2 (03:35→18:51)
[2018-06-10 05:19] LABS: Baso % (Auto) 0.9 % (0.0-2.0); Eos # (Auto) 0.2 th/mm3 (0.0-0.4); Eos % (Auto) 5.8 % (0.0-4.0); Hematocrit 28.2 % (35.0-46.0); Hemoglobin 9.7 gm/dL (11.6-15.3); Lymph # (Auto) 0.8 th/mm3 (1.0-4.8); Lymph % (Auto) 22.3 % (9.0-44.0); Mean Corpuscular HGB Conc 34.4 % (32.0-36.0); Mean Corpuscular Hemoglobin 29.7 pg (27.0-34.0); Mean Corpuscular Volume 86.3 fL (80.0-100.0); Mean Platelet Volume 8.3 fL (7.0-11.0); Mono # (Auto) 0.5 th/mm3 (0.0-0.9); Mono % (Auto) 13.9 % (0.0-8.0); Neut % (Auto) 57.1 % (16.0-70.0); Platelet Count 181 th/mm3 (150-450); Red Blood Count 3.27 mil/mm3 (4.00-5.30); Red Cell Distribution Width 17.8 % (11.6-17.2); White Blood Count 3.5 th/mm3 (4.0-11.0)
[2018-06-10 05:51] LABS: Calcium 7.4 mg/dL (8.5-10.1); Carbon Dioxide 24.8 meq/L (21.0-32.0)
[2018-06-10 05:56] LABS: Potassium 2.7 meq/L (3.5-5.1)
[2018-06-10] MEDS ORDERED: MethylPREDNISolone Sod Succinate Inj 125 MG/2 ML Vial IV.PUSH ONE (06:00)
[2018-06-10 06:12] LABS: Total Protein 4.7 g/dL (6.4-8.2)
[2018-06-10] MEDS ORDERED: Potassium Chloride 25 MEQ Effervescent Tablet PO ONE (06:12)
[2018-06-10] MEDS: Levothyroxine 50 MCG Tablet PO SCH (06:14)
[2018-06-10] MEDS: Potassium Chlor 20 mEq Premix 20 MEQ/100 ML PIGGYBACK IV.SIG SCH ×2 (07:22→09:30)
[2018-06-10] MEDS: Lactobacillus Acidophilus/L. Spores Tablet PO SCH ×3 (09:29→18:55)
[2018-06-10] MEDS: amLODIPine 5 MG Tablet PO SCH (09:29)
--- NOTE | 2018-06-10 10:45 | CT ---
EXAM DATE: 06/10/2018 10:38 AM EDT AGE/SEX: 73 years / Female INDICATIONS: Persistent diarrhea and abdominal pain. CLINICAL DATA: This is the patient's initial encounter. Patient reports that signs and symptoms have been present for 3 days and indicates a pain score of 4/10. MEDICAL/SURGICAL HISTORY: Carcinoma, lung. Chronic obstructive pulmonary disease. Gastroesoph ageal reflux disease. Hypertension, lupus. Hysterectomy. Lumbar discectomy. ORAL CONTRAST: No oral contrast ingested. RADIATION DOSE: 4.51 CTDI (mGy) COMPARISON: [facility] – [place], CT ABDOMEN & PELVIS W CONTRAST, 05/31/2018. . TECHNIQUE: Multiple contiguous axial images were obtained through the abdomen and pelvis following b olus infusion of 91 ml Omnipaque 350 (iohexol) nonionic water-soluble contrast as a single exam dos e. No oral contrast ingested. Using automated exposure control and adjustment of the mA and/or kV ac cording to patient size, radiation dose was kept as low as reasonably achievable to obtain optimal di agnostic quality images. DICOM format image data is available electronically for review and comparis on. FINDINGS: The lower lungs are clear. Mild fatty replacement to the liver. Gallbladder unremarkable. Pancreas and spleen appear normal Bilateral adrenal enlargement with a 1.7 cm low-density mass left adrenal. Symmetrical renal function with left renal cyst, largest measuring 2.7 cm. There is moderate bowel wall thickening in the ascending colon. The transverse and descending colon a ppear normal. There is no inflammatory changes in the mesentery. In the pelvis there are scattered diverticuli in the sigmoid colon with minimal bowel wall thickening . There are no inflammatory changes in the mesentery. Bladder is unremarkable Abdominal santiago intact There is no free fluid CONCLUSION: 1. Bowel wall thickening ascending colon suggesting early colitis. 2. Diverticulosis coli in the sigmoid colon without active inflammatory changes. 3. There is no ascites. Electronically signed by: Bautista Ramirez MD 06/10/2018 10:44 AM EDT
--- NOTE | 2018-06-10 11:08 | P.PNONC ---
Subjective Interval history: Afebrile. Patient just returned to her room from CT. she reports no loose bowel movements today. She was able to tolerate her clear liquid breakfast in its entirety. She has no complaints at this time. Objective Vital Signs/Intake & Output: Vital Signs 06/09/18 12:00 06/09/18 16:00 06/09/18 20:00 Temperature 97.2 F L 98.3 F 98.1 F Pulse Rate 75 73 73 Respiratory Rate 20 21 18 Blood Pressure 162/77 H 166/82 H 163/75 H Pulse Oximetry 94 L 95 94 L 06/10/18 00:00 06/10/18 04:00 06/10/18 08:00 Temperature 98.3 F 98.4 F 98.1 F Pulse Rate 69 73 74 Respiratory Rate 18 20 18 Blood Pressure 157/77 H 155/79 H 167/89 H Pulse Oximetry 93 L 95 96 Intake & Output 06/09/18 06/10/18 06/10/18 18:59 06:59 18:59 Intake Total 1400 / 1400 1870 / 1870 100 / 100 Balance 1400 / 1400 1870 / 1870 100 / 100 Intake: IV 1400 / 1400 1050 / 1050 100 / 100 NS + KCl 20 mEq Inj 1,000 ML @ 1000 / 1000 1050 / 1050 84 mls/hr IV.CONT .[id number] [facility] Rx#:[id number] KCl 10 mEq Premix Inj 10 meq In 400 / 400 100 ml @ 100 mls/hr IV.SIG Q1H [facility] Rx#:[id number] KCl 20 mEq Premix Inj 20 meq In 100 / 100 100 ml @ 50 mls/hr IV.SIG Q2H [facility] Rx#:[id number] Oral 820 / 820 Other: # Voids 5 Date of Last Bowel Movement 06/09/18 06/10/18 # Bowel Movements 1 3 Result Diagrams: 06/10/18 04:45 06/10/18 13:00 Laboratory Results: Laboratory Results - last 24 hr 06/09/18 06/10/18 06/10/18 20:38 04:45 04:45 WBC 3.5 L RBC 3.27 L Hgb 9.7 L Hct 28.2 L MCV 86.3 MCH 29.7 MCHC 34.4 RDW 17.8 H Plt Count 181 MPV 8.3 Neut % (Auto) 57.1 Lymph % (Auto) 22.3 [place] % (Auto) 13.9 H Eos % (Auto) 5.8 H Baso % (Auto) 0.9 Neut # (Auto) 2.0 Lymph # (Auto) 0.8 L [place] # (Auto) 0.5 Eos # (Auto) 0.2 Baso # (Auto) 0.0 WBC Differential . Differential Comment Auto diff final Sodium 141 Potassium 2.7 L* Chloride 106 Carbon Dioxide 24.8 Anion Gap 10 BUN 3 L Creatinine 0.76 Estimated GFR 75 L POC Glucose 88 Random Glucose 73 L Calcium 7.4 L* Prot Corrected Calcium 8.8 Total Protein 4.7 L Culture Results: Microbiology 06/08/18 15:40 Aerobic Blood Culture - Preliminary Blood - Peripheral No growth in 2 days Anaerobic Blood Culture - Preliminary No growth in 2 days 06/08/18 15:30 Aerobic Blood Culture - Preliminary Blood - Peripheral No growth in 2 days Anaerobic Blood Culture - Preliminary No growth in 2 days Imaging Studies: Impressions Abdomen/Pelvis CT 06/10/18 00:00 CONCLUSION: 1. Bowel wall thickening ascending colon suggesting early colitis. 2. Diverticulosis coli in the sigmoid colon without active inflammatory changes. 3. There is no ascites. Medications: Active Medications Generic Name Dose Route Start Last Admin Trade Name Freq PRN Reason Stop Dose Admin Amlodipine Besylate 5 mg 06/09/18 09:00 06/10/18 09:29 Norvasc PO 5 mg DAILY [facility] Administration Diphenoxylate HCl/Atropine 1 tab 06/09/18 21:41 06/10/18 03:35 Lomotil PO 1 tab Q6H PRN Administration diarrhea Enoxaparin Sodium 40 mg 06/08/18 21:00 06/09/18 21:20 Lovenox Inj SQ 40 mg Q24H [facility] Administration Potassium Chloride/Sodium Chloride 1,000 mls @ 84 mls/hr 06/08/18 17:30 06/10 06:21 Ns + Kcl 20 Meq Inj IV.CONT 84 mls/hr .[id number] [facility] Infusion Lactobacillus Acidophilus 1 tab 06/09/18 13:00 06/10/18 09:29 Lactinex PO 1 tab TID [facility] Administration Levothyroxine Sodium 50 mcg 06/09/18 06:00 06/10/18 06:14 Synthroid PO 50 mcg DAILY@0600 [facility] Administration Losartan Potassium 50 mg 06/09/18 09:00 06/10/18 09:36 Cozaar PO 50 mg DAILY [facility] Administration Metoclopramide HCl 5 mg 06/08/18 22:52 06/09/18 16:59 Reglan Inj IV.PUSH 5 mg Q8H PRN Administration NAUSEA OR VOMITING Protocol Morphine Sulfate 2 mg 06/08/18 22:54 06/09/18 05:19 Morphine Inj IV.PUSH 2 mg Q3H PRN Administration pain > 4 Ondansetron HCl 4 mg 06/08/18 17:18 06/09/18 21:20 Zofran Inj IV.PUSH 4 mg Q6H PRN Administration NAUSEA OR VOMITING Pantoprazole Sodium 40 mg 06/09/18 09:00 06/10/18 09:29 Protonix PO 40 mg DAILY [facility] Administration Zolpidem Tartrate 10 mg 06/09/18 21:40 06/09/18 23:23 Ambien PO 10 mg HS PRN Administration pain 6-10 Objective Remarks: GENERAL: Elderly female patient, sitting at bedside, in no acute distress. SKIN: Warm and dry. HEAD: Normocephalic. EYES: No scleral icterus. No injection or drainage. NECK: Supple, trachea midline. CARDIOVASCULAR: Regular rate and rhythm without murmurs. RESPIRATORY: Posterior breath sounds clear, equal bilaterally. No accessory muscle use. GASTROINTESTINAL: Abdomen soft, LLQ tender to palpation, nondistended. EXTREMITIES: No cyanosis, or edema. MUSCULOSKELETAL: Adequate muscle tone. NEUROLOGICAL: No obvious focal deficit. Awake, alert, and oriented x3. PSYCHIATRIC: Appropriate mood and affect; insight and judgment normal. Assessment/Plan (1) Non-small cell carcinoma of left lung, stage 4 Code(s): C34.92 - Malignant neoplasm of unspecified part of left bronchus or lung Status: Chronic (2) Intractable diarrhea Code(s): R19.7 - Diarrhea, unspecified Status: Acute (3) Intractable nausea and vomiting Code(s): R11.2 - Nausea with vomiting, unspecified Status: Acute - Plan 73-year-old female who has a diagnosis of stage IV non-small cell lung cancer with adenocarcinoma histology. She is currently being treated with carboplatin and Alimta and an anti-PDL 1 agent. She presents to the emergency department with refractory diarrhea nausea and vomiting. Plan: 1. Refractory diarrhea, currently controlled. Subjectively denies any episodes of diarrhea today. Continues on steroids for suspected autoimmune colitis. CT abdomen is pending. GI consult is pending. C. difficile was negative. Currently on Lomotil. 2. Hypokalemia. Currently receiving IV potassium. 3. Nausea/vomiting, currently controlled. Subjectively denies any further episodes. - Attending Statement The exam, history, and the medical decision-making described in the above note were completed with the assistance of the mid-level provider. I reviewed and agree with the findings presented. I attest that I had a [id number] encounter with the patient on the same day, and personally performed and documented my assessment and findings in the medical record. (3) Intractable nausea and vomiting Qualifiers: Vomiting type: unspecified Qualified Code(s): R11.2 - Nausea with vomiting, unspecified
--- NOTE | 2018-06-10 12:59 | P.PNIM ---
Subjective Interval history: Follow up nausea, vomiting and diarrhea. Patient states she has no nausea, vomiting or diarrhea so far today. She is tolerating liquids. Denies any chest pain or sob. GI still to see patient. Physical Exam Vital signs: Vital Signs 06/09/18 16:00 06/09/18 20:00 06/10/18 00:00 Temperature 98.3 F 98.1 F 98.3 F Pulse Rate 73 73 69 Respiratory Rate 21 18 18 Blood Pressure 166/82 H 163/75 H 157/77 H Pulse Oximetry 95 94 L 93 L 06/10/18 04:00 06/10/18 08:00 Temperature 98.4 F 98.1 F Pulse Rate 73 74 Respiratory Rate 20 18 Blood Pressure 155/79 H 167/89 H Pulse Oximetry 95 96 Intake & Output 06/09/18 06/10/18 06/10/18 18:59 06:59 18:59 Intake Total 1400 / 1400 1870 / 1870 100 / 100 Balance 1400 / 1400 1870 / 1870 100 / 100 Intake: IV 1400 / 1400 1050 / 1050 100 / 100 NS + KCl 20 mEq Inj 1,000 ML @ 1000 / 1000 1050 / 1050 84 mls/hr IV.CONT .[id number] [facility] Rx#:[id number] KCl 10 mEq Premix Inj 10 meq In 400 / 400 100 ml @ 100 mls/hr IV.SIG Q1H [facility] Rx#:[id number] KCl 20 mEq Premix Inj 20 meq In 100 / 100 100 ml @ 50 mls/hr IV.SIG Q2H [facility] Rx#:[id number] Oral 820 / 820 Other: # Voids 5 Date of Last Bowel Movement 06/09/18 06/10/18 # Bowel Movements 1 3 Narrative: GENERAL: This is a well-nourished, well-developed patient, in no apparent distress. CARDIOVASCULAR: Regular rate and rhythm without murmurs, gallops, or rubs. RESPIRATORY: Clear to auscultation. Breath sounds equal bilaterally. No wheezes , rales, or rhonchi. GASTROINTESTINAL: Abdomen soft, non-tender, nondistended. Normal active bowel sounds MUSCULOSKELETAL: Extremities without clubbing, cyanosis, or edema. NEURO: Alert & Oriented x4 to person, place, time, situation. Moves all ext x4 Results - Labs CBC & Chem 7: 06/10/18 04:45 06/10/18 04:45 Laboratory Results - last 24 hr 06/09/18 06/10/18 06/10/18 20:38 04:45 04:45 WBC 3.5 L RBC 3.27 L Hgb 9.7 L Hct 28.2 L MCV 86.3 MCH 29.7 MCHC 34.4 RDW 17.8 H Plt Count 181 MPV 8.3 Neut % (Auto) 57.1 Lymph % (Auto) 22.3 Drew % (Auto) 13.9 H Eos % (Auto) 5.8 H Baso % (Auto) 0.9 Neut # (Auto) 2.0 Lymph # (Auto) 0.8 L Drew # (Auto) 0.5 Eos # (Auto) 0.2 Baso # (Auto) 0.0 WBC Differential . Differential Comment Auto diff final Sodium 141 Potassium 2.7 L* Chloride 106 Carbon Dioxide 24.8 Anion Gap 10 BUN 3 L Creatinine 0.76 Estimated GFR 75 L POC Glucose 88 Random Glucose 73 L Calcium 7.4 L* Prot Corrected Calcium 8.8 Total Protein 4.7 L Microbiology 06/08/18 15:40 Blood - Peripheral Aerobic Blood Culture - Preliminary No growth in 2 days 06/08/18 15:40 Blood - Peripheral Anaerobic Blood Culture - Preliminary No growth in 2 days 06/08/18 15:30 Blood - Peripheral Aerobic Blood Culture - Preliminary No growth in 2 days 06/08/18 15:30 Blood - Peripheral Anaerobic Blood Culture - Preliminary No growth in 2 days - Imaging Impressions Abdomen/Pelvis CT 06/10/18 00:00 CONCLUSION: 1. Bowel wall thickening ascending colon suggesting early colitis. 2. Diverticulosis coli in the sigmoid colon without active inflammatory changes. 3. There is no ascites. Assessment and Plan - Plan Mrs. Pleitez is a 73-year-old female with a history of stage IV lung cancer, lupus, COPD, hypothyroidism, hypertension, GERD, and DVT who presented to the ER with complaints of nausea vomiting and diarrhea. She had chemo approximately 6 weeks ago but she has not been able to tolerate it because of nausea, vomiting, and electrolyte abnormalities. Dr. Kang is her oncologist who recommended that she present to the emergency room. She is admitted to the hospitalist service for further evaluation and medical management. Intractable nausea, vomiting, and diarrhea, oncology feels it may be autoimmune colitis CT Abdomen reviewed and shows bowel wall thickening ascending colon suggesting early colitis and diverticulosis coli in the sigmoid - C. difficile negative - IV morphine as needed for pain - Liquid diet - Continue Protonix - Antiemetics: IV Zofran and Reglan as needed -Cont Lactinex if patient can tolerate it -Solumedrol IV started by oncology -GI consulted by oncology for evaluation and possible colonoscopy Hypomagnesemia, resolved hypokalemia, improving secondary to vomiting and diarrhea - Replenish potassium and magnesium - Repeat labs and monitor results, replace as indicated - Continuous cardiac telemetry to monitor for arrhythmias - Cont potassium to IVF - Potassium PO daily ordered Acute kidney injury secondary to dehydration, Resolved Creatine 1.6-->1.1-->.76 - DC IVF - Monitor renal function - Avoid nephrotoxins Stage IV lung adenocarcinoma - Consult oncologist -appreciate assistance Resume home medications for hypertension and hypothyroidism DVT prophylaxis - Lovenox 40 mg subcu every 24 hours Discussed 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
[2018-06-10] MEDS: MethylPREDNISolone Sod Succinate Inj 125 MG/2 ML Vial IV.PUSH SCH ×2 (14:00→20:38)
--- NOTE | 2018-06-10 16:23 | P.CONGI ---
History of Present Illness Consult date: 06/10/18 Consult reason: Diarrhea Chief complaint: Hypokalemia, intractable vomiting History of Present Illness: This is a 73-year-old female with a history of stage IV lung cancer, lupus, COPD , hypothyroidism, hypertension, GERD, and DVT who presented to the ER per oncologist recommendations with complaints of nausea vomiting and diarrhea. vomiting has subsided but still feel nauseous. Diarrhea on going for 3 weeks, refractory to tx. Stools were negative for c-diff. colonoscopy was many yrs ago. Has LUQ tenderness on palpation. Denies melena or hematochezia. <Camryn Luong - Last Filed: 06/10/18 16:12> Review of Systems All other systems reviewed negative except as stated in HPI <Camryn Luong - Last Filed: 06/10/18 16:12> PMFSH - History History Provided By: Patient, Family Member, Medical Record - Medical History Medical History: Medical History (Last Reviewed 06/10/18 @ 09:04 by Rhina Reeves) COPD (chronic obstructive pulmonary disease) Cataract fragments in eye following surgery Chemotherapy induced nausea and vomiting DVT (deep venous thrombosis) GERD (gastroesophageal reflux disease) HTN (hypertension) Hypothyroid Lung cancer Lupus - Surgical History Surgical History: Surgical History (Last Reviewed 06/10/18 @ 09:04 by Rhina Reeves) H/O foot surgery H/O hysterectomy with oophorectomy H/O lumbar discectomy Hx of tonsillectomy - Family History Family History: Family History (Last Reviewed 06/10/18 @ 00:18 by Werner Kang MD) Father Myocardial infarction Mother Stroke - Tobacco History Second Hand Smoke Exposure: No Tobacco Use In Past 30 Days: No Smoking Status: Former smoker Tobacco Type: Cigarettes - Alcohol History How Often Do You Have a Drink Containing Alcohol: Monthly or less - Substance Use History Substance History: No History of Abuse - Immunization History Tetanus Immunization: <5 Years Hx Influenza Vaccine This Season: No <Camryn Luong - Last Filed: 06/10/18 16:12> - Medical History Medical History: Medical History (Last Reviewed 06/10/18 @ 09:04 by Rhina Reeves) COPD (chronic obstructive pulmonary disease) Cataract fragments in eye following surgery Chemotherapy induced nausea and vomiting DVT (deep venous thrombosis) GERD (gastroesophageal reflux disease) HTN (hypertension) Hypothyroid Lung cancer Lupus - Surgical History Surgical History: Surgical History (Last Reviewed 06/10/18 @ 09:04 by Rhina Reeves) H/O foot surgery H/O hysterectomy with oophorectomy H/O lumbar discectomy Hx of tonsillectomy - Family History Family History: Family History (Last Reviewed 06/10/18 @ 00:18 by Werner Kang MD) Father Myocardial infarction Mother Stroke <Magdalene Bronson - Last Filed: 06/10/18 22:38> Medications and Allergies Active Medications: Active Medications Acetaminophen (Tylenol) 650 mg PO Q4H PRN PRN Reason: Temp > 100.4 Al Hydroxide/Mg Hydroxide (Milk Of Magnesia Liq) 30 ml PO Q12H PRN PRN Reason: Mild Constipation Amlodipine Besylate (Norvasc) 5 mg PO DAILY COUNT INCLUDES THE [facility] Last Admin: 06/10/18 09:29 Dose: 5 mg Bisacodyl (Dulcolax Supp) 10 mg RECTAL DAILY PRN PRN Reason: SEVERE CONSITIPATION Diphenoxylate HCl/Atropine (Lomotil) 1 tab PO Q6H PRN PRN Reason: diarrhea Last Admin: 06/10/18 03:35 Dose: 1 tab Enoxaparin Sodium (Lovenox Inj) 40 mg SQ Q24H COUNT INCLUDES THE [facility] Last Admin: 06/09/18 21:20 Dose: 40 mg Lactobacillus Acidophilus (Lactinex) 1 tab PO TID COUNT INCLUDES THE [facility] Last Admin: 06/10/18 09:29 Dose: 1 tab Lactulose (Lactulose Liq) 30 ml PO DAILY PRN PRN Reason: SEVERE CONSITIPATION Levothyroxine Sodium (Synthroid) 50 mcg PO DAILY@0600 COUNT INCLUDES THE [facility] Last Admin: 06/10/18 06:14 Dose: 50 mcg Losartan Potassium (Cozaar) 50 mg PO DAILY COUNT INCLUDES THE [facility] Last Admin: 06/10/18 09:36 Dose: 50 mg Methylprednisolone Sodium Succinate (Solumedrol Inj) 60 mg IV.PUSH Q12HR COUNT INCLUDES THE [facility] Metoclopramide HCl (Reglan Inj) 5 mg IV.PUSH Q8H PRN; Protocol PRN Reason: NAUSEA OR VOMITING Last Admin: 06/09/18 16:59 Dose: 5 mg Morphine Sulfate (Morphine Inj) 2 mg IV.PUSH Q3H PRN PRN Reason: pain > 4 Last Admin: 06/09/18 05:19 Dose: 2 mg Ondansetron HCl (Zofran Inj) 4 mg IV.PUSH Q6H PRN PRN Reason: NAUSEA OR VOMITING Last Admin: 06/09/18 21:20 Dose: 4 mg Pantoprazole Sodium (Protonix) 40 mg PO DAILY COUNT INCLUDES THE [facility] Last Admin: 06/10/18 09:29 Dose: 40 mg Potassium Bicarb/Potassium Chloride (K-Lyte Cl Eff) 25 meq PO DAILY COUNT INCLUDES THE [facility] Sennosides (Senokot) 17.2 mg PO Q12H PRN PRN Reason: Moderate Constipation Zolpidem Tartrate (Ambien) 10 mg PO HS PRN PRN Reason: pain 6-10 Last Admin: 06/09/18 23:23 Dose: 10 mg <Camryn Luong - Last Filed: 06/10/18 16:12> Active Medications: Active Medications Acetaminophen (Tylenol) 650 mg PO Q4H PRN PRN Reason: Temp > 100.4 Al Hydroxide/Mg Hydroxide (Milk Of Magnesia Liq) 30 ml PO Q12H PRN PRN Reason: Mild Constipation Amlodipine Besylate (Norvasc) 5 mg PO DAILY COUNT INCLUDES THE [facility] Last Admin: 06/10/18 09:29 Dose: 5 mg Bisacodyl (Dulcolax Supp) 10 mg RECTAL DAILY PRN PRN Reason: SEVERE CONSITIPATION Diphenoxylate HCl/Atropine (Lomotil) 1 tab PO Q6H PRN PRN Reason: diarrhea Last Admin: 06/10/18 18:51 Dose: 1 tab Enoxaparin Sodium (Lovenox Inj) 40 mg SQ Q24H COUNT INCLUDES [facility] Last Admin: 06/10/18 20:37 Dose: 40 mg Lactobacillus Acidophilus (Lactinex) 1 tab PO TID COUNT INCLUDES THE [facility] Last Admin: 06/10/18 18:55 Dose: 1 tab Lactulose (Lactulose Liq) 30 ml PO DAILY PRN PRN Reason: SEVERE CONSITIPATION Levothyroxine Sodium (Synthroid) 50 mcg PO DAILY@0600 COUNT INCLUDES [facility] Last Admin: 06/10/18 06:14 Dose: 50 mcg Losartan Potassium (Cozaar) 50 mg PO DAILY COUNT INCLUDES THE [facility] Last Admin: 06/10/18 09:36 Dose: 50 mg Methylprednisolone Sodium Succinate (Solumedrol Inj) 60 mg IV.PUSH Q12HR COUNT INCLUDES [facility] Last Admin: 06/10/18 20:38 Dose: 60 mg Metoclopramide HCl (Reglan Inj) 5 mg IV.PUSH Q8H PRN; Protocol PRN Reason: NAUSEA OR VOMITING Last Admin: 06/10/18 18:50 Dose: 5 mg Morphine Sulfate (Morphine Inj) 2 mg IV.PUSH Q3H PRN PRN Reason: pain > 4 Last Admin: 06/09/18 05:19 Dose: 2 mg Ondansetron HCl (Zofran Inj) 4 mg IV.PUSH Q6H PRN PRN Reason: NAUSEA OR VOMITING Last Admin: 06/09/18 21:20 Dose: 4 mg Pantoprazole Sodium (Protonix) 40 mg PO DAILY COUNT INCLUDES THE [facility] Last Admin: 06/10/18 09:29 Dose: 40 mg Potassium Bicarb/Potassium Chloride (K-Lyte Cl Eff) 25 meq PO DAILY COUNT INCLUDES THE [facility] Sennosides (Senokot) 17.2 mg PO Q12H PRN PRN Reason: Moderate Constipation Zolpidem Tartrate (Ambien) 10 mg PO HS PRN PRN Reason: pain 6-10 Last Admin: 06/10/18 20:46 Dose: 10 mg <Magdalene Bronson A - Last Filed: 06/10/18 22:38> Allergies Allergy/AdvReac Type Severity Reaction Status Date / Time No Known Allergies Allergy Verified 04/12/18 08:12 Home Medications Medication Instructions Recorded Confirmed Type amlodipine [Norvasc] 5 mg PO DAILY 04/12/18 06/08/18 History hydroxychloroquine 200 mg PO BID 04/12/18 06/08/18 History levothyroxine 50 mcg PO DAILY 04/12/18 06/08/18 History losartan-hydrochlorothiazide 1 tab PO DAILY 04/12/18 06/08/18 History ondansetron HCl 8 mg PO TID PRN 04/27/18 06/08/18 History pantoprazole 40 mg PO DAILY 04/27/18 06/08/18 History cholecalciferol (vitamin D3) 1,000 unit PO DAILY 05/31/18 06/08/18 History [Vitamin D3] cyanocobalamin (vitamin B-12) 1,000 mcg PO DAILY 05/31/18 06/08/18 History [Vitamin B-12] Exam Vital signs: Vital Signs 06/09/18 20:00 06/10/18 00:00 06/10/18 04:00 Temperature 98.1 F 98.3 F 98.4 F Pulse Rate 73 69 73 Respiratory Rate 18 18 20 Blood Pressure 163/75 H 157/77 H 155/79 H Pulse Oximetry 94 L 93 L 95 06/10/18 08:00 06/10/18 12:00 Temperature 98.1 F 97.7 F Pulse Rate 74 74 Respiratory Rate 18 16 Blood Pressure 167/89 H 164/82 H Pulse Oximetry 96 96 Intake & Output 06/09/18 06/10/18 06/10/18 18:59 06:59 18:59 Intake Total 1400 / 1400 1870 / 1870 100 / 100 Balance 1400 / 1400 1870 / 1870 100 / 100 Intake: IV 1400 / 1400 1050 / 1050 100 / 100 NS + KCl 20 mEq Inj 1,000 ML @ 1000 / 1000 1050 / 1050 84 mls/hr IV.CONT .[id number] [facility] Rx#:[id number] KCl 10 mEq Premix Inj 10 meq In 400 / 400 100 ml @ 100 mls/hr IV.SIG Q1H [facility] Rx#:[id number] KCl 20 mEq Premix Inj 20 meq In 100 / 100 100 ml @ 50 mls/hr IV.SIG Q2H [facility] Rx#:[id number] Oral 820 / 820 Other: # Voids 5 Date of Last Bowel Movement 06/09/18 06/10/18 # Bowel Movements 1 3 - Constitutional no acute distress - Routine HEENT Exam Head: Present: normocephalic - Routine Respiratory Exam Present: CTA bilaterally - Routine Cardiovascular Exam Present: RRR - Routine Abdominal Exam Present: soft, normoactive bowel sounds, tenderness. Absent: distended - Routine Skin Exam Present: intact, dry. Absent: jaundice - Routine Neurological Exam Present: alert, oriented X3 <Amawi,Justynawla - Last Filed: 06/10/18 16:12> Vital signs: Vital Signs 06/10/18 00:00 06/10/18 04:00 06/10/18 08:00 Temperature 98.3 F 98.4 F 98.1 F Pulse Rate 69 73 74 Respiratory Rate 18 20 18 Blood Pressure 157/77 H 155/79 H 167/89 H Pulse Oximetry 93 L 95 96 06/10/18 12:00 06/10/18 16:00 09/07/18 20:00 Temperature 97.7 F 98.1 F 98.8 F Pulse Rate 74 75 69 Respiratory Rate 16 16 20 Blood Pressure 164/82 H 168/82 H 146/78 H Pulse Oximetry 96 94 L 94 L Intake & Output 06/10/18 06/10/18 06/11/18 06:59 18:59 06:59 Intake Total 1869 Balance 1869 Intake: IV 1050 / 1050 1050 / 1050 NS + KCl 20 mEq Inj 1,000 ML @ 1050 / 1050 850 / 850 84 mls/hr IV.CONT .[id number] [facility] Rx#:[id number] KCl 20 mEq Premix Inj 20 meq In 200 / 200 100 ml @ 50 mls/hr IV.SIG Q2H [facility] Rx#:[id number] Oral 820 / 820 980 / 980 Other: # Voids 5 Date of Last Bowel Movement 06/10/18 06/10/18 # Bowel Movements 3 3 <Magdalene Bronson A - Last Filed: 06/10/18 22:38> Results - Labs CBC & Chem 7: 06/10/18 04:45 06/10/18 13:00 Labs: Laboratory Results - last 24 hr 06/09/18 06/10/18 06/10/18 20:38 04:45 04:45 WBC 3.5 L RBC 3.27 L Hgb 9.7 L Hct 28.2 L MCV 86.3 MCH 29.7 MCHC 34.4 RDW 17.8 H Plt Count 181 MPV 8.3 Neut % (Auto) 57.1 Lymph % (Auto) 22.3 Hand % (Auto) 13.9 H Eos % (Auto) 5.8 H Baso % (Auto) 0.9 Neut # (Auto) 2.0 Lymph # (Auto) 0.8 L Hand # (Auto) 0.5 Eos # (Auto) 0.2 Baso # (Auto) 0.0 WBC Differential . Differential Comment Auto diff final Sodium 141 Potassium 2.7 L* Chloride 106 Carbon Dioxide 24.8 Anion Gap 10 BUN 3 L Creatinine 0.76 Estimated GFR 75 L POC Glucose 88 Random Glucose 73 L Calcium 7.4 L* Prot Corrected Calcium 8.8 Total Protein 4.7 L 06/10/18 13:00 WBC RBC Hgb Hct MCV MCH MCHC RDW Plt Count MPV Neut % (Auto) Lymph % (Auto) Hand % (Auto) Eos % (Auto) Baso % (Auto) Neut # (Auto) Lymph # (Auto) Hand # (Auto) Eos # (Auto) Baso # (Auto) WBC Differential Differential Comment Sodium Potassium 3.2 L Chloride Carbon Dioxide Anion Gap BUN Creatinine Estimated GFR POC Glucose Random Glucose Calcium Prot Corrected Calcium Total Protein - Imaging Impressions Abdomen/Pelvis CT 06/10/18 00:00 CONCLUSION: 1. Bowel wall thickening ascending colon suggesting early colitis. 2. Diverticulosis coli in the sigmoid colon without active inflammatory changes. 3. There is no ascites. <Camryn Luong - Last Filed: 06/10/18 16:12> - Labs CBC & Chem 7: 06/10/18 04:45 06/10/18 13:00 Labs: Laboratory Results - last 24 hr 06/10/18 06/10/18 06/10/18 04:45 04:45 13:00 WBC 3.5 L RBC 3.27 L Hgb 9.7 L Hct 28.2 L MCV 86.3 MCH 29.7 MCHC 34.4 RDW 17.8 H Plt Count 181 MPV 8.3 Neut % (Auto) 57.1 Lymph % (Auto) 22.3 Hand % (Auto) 13.9 H Eos % (Auto) 5.8 H Baso % (Auto) 0.9 Neut # (Auto) 2.0 Lymph # (Auto) 0.8 L Hand # (Auto) 0.5 Eos # (Auto) 0.2 Baso # (Auto) 0.0 WBC Differential . Differential Comment Auto diff final Sodium 141 Potassium 2.7 L* 3.2 L Chloride 106 Carbon Dioxide 24.8 Anion Gap 10 BUN 3 L Creatinine 0.76 Estimated GFR 75 L Random Glucose 73 L Calcium 7.4 L* Prot Corrected Calcium 8.8 Total Protein 4.7 L - Imaging Impressions Abdomen/Pelvis CT 06/10/18 00:00 CONCLUSION: 1. Bowel wall thickening ascending colon suggesting early colitis. 2. Diverticulosis coli in the sigmoid colon without active inflammatory changes. 3. There is no ascites. 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 Currently on steroids Stools are negative for C-diff CT Abdomen reviewed and shows bowel wall thickening ascending colon suggesting early colitis and diverticulosis coli in the sigmoid - Nausea/vomiting for few weeks- Vomiting subsided but still nauseous and having LUQ pain - Hypomagnesemia, resolved - hypokalemia, improving secondary to vomiting and diarrhea - Acute kidney injury secondary to dehydration, Resolved - Anemia- no bleeding reported - Stage IV lung adenocarcinoma- oncology on the case Plan: - Diet per attending - EGD/colonoscopy on Wednesday - consents - Cont. current measures - Supportive care - Pt seen and examined by Dr. Bronson and myself and this note is written on his behalf <Camrny Luong - Last Filed: 06/10/18 16:12> - Attending Attestation Agree with above assessment and plan. Will proceed with EGD/Colonoscopy Wednesday. Discussed with patient and family risks, benefits and possible complivation. Thank you for the consult. <Magdalene Bronson - Last Filed: 06/10/18 22:38>
[2018-06-10] MEDS: Enoxaparin Inj 40 MG/0.4 ML Syringe SQ SCH (20:37)
[2018-06-11] MEDS: Levothyroxine 50 MCG Tablet PO SCH (06:45)
[2018-06-11] MEDS ORDERED: Potassium Chloride 25 MEQ Effervescent Tablet PO SCH (09:00)
[2018-06-11] MEDS: Lactobacillus Acidophilus/L. Spores Tablet PO SCH ×3 (09:44→17:08)
[2018-06-11] MEDS: Diphenoxylate/Atropine 2.5/0.025 MG Tablet PO PRN (09:44)
[2018-06-11] MEDS: MethylPREDNISolone Sod Succinate Inj 40 MG/ML Vial IV.PUSH SCH ×2 (09:45→21:59)
[2018-06-11] MEDS: amLODIPine 5 MG Tablet PO SCH (09:45)
--- NOTE | 2018-06-11 11:39 | P.PNONC ---
Subjective Interval history: Afebrile. Patient reports to loose stools this a.m., she reports them as "mostly air" Patient tolerating solid food. She reports potassium pills has been difficult to swallow. Objective Vital Signs/Intake & Output: Vital Signs 06/10/18 12:00 06/10/18 16:00 06/10/18 20:00 Temperature 97.7 F 98.1 F 98.8 F Pulse Rate 74 75 71 Respiratory Rate 16 16 20 Blood Pressure 164/82 H 168/82 H 146/78 H Pulse Oximetry 96 94 L 94 L 06/11/18 00:00 06/11/18 04:00 06/11/18 08:00 Temperature 97.8 F 97.8 F 97.6 F Pulse Rate 69 69 67 Respiratory Rate 20 20 20 Blood Pressure 139/79 143/78 H 155/85 H Pulse Oximetry 96 97 94 L Intake & Output 06/10/18 06/11/18 06/11/18 18:59 06:59 18:59 Intake Total 2029 960 / 960 Output Total 450 / 450 Balance 2029 510 / 510 Weight 45.4 kg Intake: IV 1050 / 1050 NS + KCl 20 mEq Inj 1,000 ML @ 850 / 850 84 mls/hr IV.CONT .[id number] [facility] Rx#:[id number] KCl 20 mEq Premix Inj 20 meq In 200 / 200 100 ml @ 50 mls/hr IV.SIG Q2H [facility] Rx#:[id number] Oral 980 / 980 960 / 960 Output: Urine 450 / 450 Other: # Voids 5 5 Date of Last Bowel Movement 06/10/18 06/10/18 # Bowel Movements 3 2 Result Diagrams: 06/13/18 08:00 06/13/18 08:00 Laboratory Results: Laboratory Results - last 24 hr 06/10/18 13:00 Potassium 3.2 L Culture Results: Microbiology 06/08/18 15:40 Aerobic Blood Culture - Preliminary Blood - Peripheral No growth in 3 days Anaerobic Blood Culture - Preliminary No growth in 3 days 06/08/18 15:30 Aerobic Blood Culture - Preliminary Blood - Peripheral No growth in 3 days Anaerobic Blood Culture - Preliminary No growth in 3 days Medications: Active Medications Generic Name Dose Route Start Last Admin Trade Name Freq PRN Reason Stop Dose Admin Amlodipine Besylate 5 mg 06/09/18 09:00 06/11/18 09:45 Norvasc PO 5 mg DAILY [facility] Administration Diphenoxylate HCl/Atropine 1 tab 06/09/18 21:41 06/11/18 09:44 Lomotil PO 1 tab Q6H PRN Administration diarrhea Enoxaparin Sodium 40 mg 06/08/18 21:00 06/10/18 20:37 Lovenox Inj SQ 40 mg Q24H [facility] Administration Lactobacillus Acidophilus 1 tab 06/09/18 13:00 06/11/18 09:44 Lactinex PO 1 tab TID [facility] Administration Levothyroxine Sodium 50 mcg 06/09/18 06:00 06/11/18 06:45 Synthroid PO 50 mcg DAILY@0600 [facility] Administration Losartan Potassium 50 mg 06/09/18 09:00 06/11/18 09:44 Cozaar PO 50 mg DAILY [facility] Administration Methylprednisolone Sodium Succinate 40 mg 06/11/18 09:00 06/11/18 09:45 Solumedrol Inj IV.PUSH 40 mg Q12HR [facility] Administration Metoclopramide HCl 5 mg 06/08/18 22:52 06/10/18 18:50 Reglan Inj IV.PUSH 5 mg Q8H PRN Administration NAUSEA OR VOMITING Protocol Morphine Sulfate 2 mg 06/08/18 22:54 06/09/18 05:19 Morphine Inj IV.PUSH 2 mg Q3H PRN Administration pain > 4 Ondansetron HCl 4 mg 06/08/18 17:18 06/11/18 09:47 Zofran Inj IV.PUSH 4 mg Q6H PRN Administration NAUSEA OR VOMITING Pantoprazole Sodium 40 mg 06/09/18 09:00 06/11/18 09:44 Protonix PO 40 mg DAILY [facility] Administration Zolpidem Tartrate 10 mg 06/09/18 21:40 06/10/18 20:46 Ambien PO 10 mg HS PRN Administration pain 6-10 Objective Remarks: GENERAL: Elderly female patient, sitting at window, in no acute distress. SKIN: Warm and dry. HEAD: Normocephalic. EYES: No scleral icterus. No injection or drainage. NECK: Supple, trachea midline. CARDIOVASCULAR: Regular rate and rhythm without murmurs. RESPIRATORY: Posterior breath sounds clear, equal bilaterally. No accessory muscle use. GASTROINTESTINAL: Abdomen soft, non-tender, nondistended. EXTREMITIES: No cyanosis, or edema. MUSCULOSKELETAL: Adequate muscle tone. NEUROLOGICAL: No obvious focal deficit. Awake, alert, and oriented x3. PSYCHIATRIC: Appropriate mood and affect; insight and judgment normal. Assessment/Plan (1) Non-small cell carcinoma of left lung, stage 4 Code(s): C34.92 - Malignant neoplasm of unspecified part of left bronchus or lung Status: Chronic (2) Intractable diarrhea Code(s): R19.7 - Diarrhea, unspecified Status: Acute (3) Intractable nausea and vomiting Code(s): R11.2 - Nausea with vomiting, unspecified Status: Acute - Plan 73-year-old female who has a diagnosis of stage IV non-small cell lung cancer with adenocarcinoma histology. She is currently being treated with carboplatin and Alimta and an anti-PDL 1 agent. She presents to the emergency department with refractory diarrhea nausea and vomiting. Plan: 1. Refractory diarrhea, currently controlled. Continue Solu-Medrol 40 mg twice daily for suspected autoimmune colitis. CT abdomen showed thickening to the ascending colon, consistent with early colitis. She was seen by GI and they recommended EGD and colonoscopy on Wednesday. Continue Lomotil. 2. Hypokalemia, improving. Patient having difficulty with the large potassium pills, I will switch these to the smaller pills. 3. Renal function improving. - Attending Statement The exam, history, and the medical decision-making described in the above note were completed with the assistance of the mid-level provider. I reviewed and agree with the findings presented. I attest that I had a [id number] encounter with the patient on the same day, and personally performed and documented my assessment and findings in the medical record. doing better/ tolerating oral intake 2 BMs today-getting firm continue Solumedrol 40 BID EGD/Colonoscopy tomorrow (3) Intractable nausea and vomiting Qualifiers: Vomiting type: unspecified Qualified Code(s): R11.2 - Nausea with vomiting, unspecified
--- NOTE | 2018-06-11 13:09 | P.PN ---
Subjective Interval history: Follow up Refractory diarrhea 06/11/18-Patient seen and examined; diarrhea improving, Some Nausea but no emesis. K is still up Physical Exam Vital signs: Vital Signs 06/10/18 16:00 06/10/18 20:00 06/11/18 00:00 Temperature 98.1 F 98.8 F 97.8 F Pulse Rate 75 71 69 Respiratory Rate 16 20 20 Blood Pressure 168/82 H 146/78 H 139/79 Pulse Oximetry 94 L 94 L 96 06/11/18 04:00 06/11/18 08:00 Temperature 97.8 F 97.6 F Pulse Rate 69 67 Respiratory Rate 20 20 Blood Pressure 143/78 H 155/85 H Pulse Oximetry 97 94 L Intake & Output 06/10/18 06/11/18 06/11/18 18:59 06:59 18:59 Intake Total 2029 960 / 960 Output Total 450 / 450 Balance 2029 510 / 510 Weight 45.4 kg Intake: IV 1050 / 1050 NS + KCl 20 mEq Inj 1,000 ML @ 850 / 850 84 mls/hr IV.CONT .[id number] [facility] Rx#:[id number] KCl 20 mEq Premix Inj 20 meq In 200 / 200 100 ml @ 50 mls/hr IV.SIG Q2H [facility] Rx#:[id number] Oral 980 / 980 960 / 960 Output: Urine 450 / 450 Other: # Voids 5 5 Date of Last Bowel Movement 06/10/18 06/10/18 # Bowel Movements 3 2 Narrative: GENERAL: NAD. CARDIOVASCULAR: Regular rate and rhythm without murmurs, gallops, or rubs. RESPIRATORY: Clear to auscultation. Breath sounds equal bilaterally. No wheezes , rales, or rhonchi. GASTROINTESTINAL: Abdomen soft, non-tender, nondistended. Normal active bowel sounds MUSCULOSKELETAL: Extremities without clubbing, cyanosis, or edema. NEURO: Alert & Oriented x4 to person, place, time, situation. Moves all ext x4 Results - Labs CBC & Chem 7: 06/10/18 04:45 06/10/18 13:00 Laboratory Results - last 24 hr 06/10/18 13:00 Potassium 3.2 L Microbiology 06/08/18 15:40 Blood - Peripheral Aerobic Blood Culture - Preliminary No growth in 3 days 06/08/18 15:40 Blood - Peripheral Anaerobic Blood Culture - Preliminary No growth in 3 days 06/08/18 15:30 Blood - Peripheral Aerobic Blood Culture - Preliminary No growth in 3 days 06/08/18 15:30 Blood - Peripheral Anaerobic Blood Culture - Preliminary No growth in 3 days Assessment and Plan - Plan 73 years old female with Refractory diarrhea Autoimmune colitis -Continue with Solu Medrol IV 40mg Q12H -Plan for EGD/Colonoscopy 06/13/18 -Appreciate input from GI Electrolyte derangement syndrome - Replace electrolyte accordingly Acute kidney injury secondary to dehydration, Resolved - Monitor renal function - Avoid nephrotoxins Stage IV lung adenocarcinoma - appreciate assistance from Oncology Hypertension and hypothyroidism -Continue with outpatient medications DVT prophylaxis - Lovenox 40 mg subcu every 24 hours
[2018-06-11] MEDS: Enoxaparin Inj 40 MG/0.4 ML Syringe SQ SCH (21:58)
[2018-06-12] MEDS: Levothyroxine 50 MCG Tablet PO SCH (05:35)
[2018-06-12 06:48] LABS: Baso % (Auto) 0.3 % (0.0-2.0); Hemoglobin 10.7 gm/dL (11.6-15.3); Lymph # (Auto) 0.8 th/mm3 (1.0-4.8); Lymph % (Auto) 8.7 % (9.0-44.0); Mean Corpuscular HGB Conc 35.5 % (32.0-36.0); Mean Corpuscular Hemoglobin 30.2 pg (27.0-34.0); Mean Corpuscular Volume 85.1 fL (80.0-100.0); Mono # (Auto) 0.4 th/mm3 (0.0-0.9); Mono % (Auto) 4.9 % (0.0-8.0); Neut # (Auto) 7.8 th/mm3 (1.8-7.7); Neut % (Auto) 86.1 % (16.0-70.0); Platelet Count 240 th/mm3 (150-450); Red Blood Count 3.53 mil/mm3 (4.00-5.30); Red Cell Distribution Width 18.1 % (11.6-17.2)
[2018-06-12 07:12] LABS: Alanine Aminotransferase 24 U/L (10-53); Albumin 2.8 g/dL (3.4-5.0); Anion Gap 9 meq/L (5-15); Aspartate Aminotransferase 26 U/L (15-37); Blood Urea Nitrogen 10 mg/dL (7-18); Calcium 7.6 mg/dL (8.5-10.1); Carbon Dioxide 27.6 meq/L (21.0-32.0); Chloride 105 meq/L (98-107); Glomerular Filtration Rate 60 mL/min (>89); Glucose,Random 119 mg/dL (74-106); Potassium 3.1 meq/L (3.5-5.1); Sodium 142 meq/L (136-145)
[2018-06-12 07:14] LABS: Total Protein 5.1 g/dL (6.4-8.2)
[2018-06-12 07:15] LABS: Alkaline Phosphatase 69 U/L (45-117)
[2018-06-12] MEDS: amLODIPine 5 MG Tablet PO SCH (09:24)
[2018-06-12] MEDS: MethylPREDNISolone Sod Succinate Inj 40 MG/ML Vial IV.PUSH SCH ×2 (09:25→20:17)
[2018-06-12] MEDS: Lactobacillus Acidophilus/L. Spores Tablet PO SCH ×3 (09:25→17:34)
--- NOTE | 2018-06-12 11:17 | P.PN ---
Subjective Interval history: Follow up Refractory diarrhea 06/11/18-Patient seen and examined; diarrhea improving, Some Nausea but no emesis. K is still up 06/12/18-patient seen and examined, states she has had 2 fall BM this morning. No emesis or nausea. States, she is feeling much better today. Physical Exam Vital signs: Vital Signs 06/11/18 12:00 06/11/18 16:00 06/11/18 20:00 Temperature 97.6 F 97.9 F 97.9 F Pulse Rate 70 73 76 Respiratory Rate 18 18 17 Blood Pressure 147/78 H 145/81 H 131/77 Pulse Oximetry 95 93 L 95 06/12/18 00:19 06/12/18 03:32 06/12/18 08:00 Temperature 98.0 F 98.3 F 97.8 F Pulse Rate 65 64 72 Respiratory Rate 17 18 16 Blood Pressure 141/79 H 151/78 H 167/83 H Pulse Oximetry 93 L 96 95 Intake & Output 06/11/18 06/12/18 06/12/18 18:59 06:59 18:59 Intake Total 600 / 600 960 / 960 Balance 600 / 600 960 / 960 Weight 45.4 kg Intake: Oral 600 / 600 960 / 960 Other: # Voids 3 2 Date of Last Bowel Movement 06/11/18 06/11/18 # Bowel Movements 0 Narrative: GENERAL: NAD. CARDIOVASCULAR: Regular rate and rhythm without murmurs, gallops, or rubs. RESPIRATORY: Clear to auscultation. Breath sounds equal bilaterally. No wheezes , rales, or rhonchi. GASTROINTESTINAL: Abdomen soft, non-tender, nondistended. Normal active bowel sounds MUSCULOSKELETAL: Extremities without clubbing, cyanosis, or edema. NEURO: Alert & Oriented x4 to person, place, time, situation. Moves all ext x4 Results - Labs CBC & Chem 7: 06/12/18 06:30 06/12/18 06:30 Laboratory Results - last 24 hr 06/12/18 06/12/18 06:30 06:30 WBC 9.0 RBC 3.53 L Hgb 10.7 L Hct 30.0 L MCV 85.1 MCH 30.2 MCHC 35.5 RDW 18.1 H Plt Count 240 D MPV 8.0 Neut % (Auto) 86.1 H Lymph % (Auto) 8.7 L [place] % (Auto) 4.9 Eos % (Auto) 0.0 Baso % (Auto) 0.3 Neut # (Auto) 7.8 H Lymph # (Auto) 0.8 L [place] # (Auto) 0.4 Eos # (Auto) 0.0 Baso # (Auto) 0.0 WBC Differential . Differential Comment Auto diff final Sodium 142 Potassium 3.1 L Chloride 105 Carbon Dioxide 27.6 Anion Gap 9 BUN 10 Creatinine 0.92 Estimated GFR 60 L Random Glucose 119 H Calcium 7.6 L Total Bilirubin 0.4 AST 26 ALT 24 Alkaline Phosphatase 69 Total Protein 5.1 L Albumin 2.8 L Microbiology 06/08/18 15:40 Blood - Peripheral Aerobic Blood Culture - Preliminary No growth in 4 days 06/08/18 15:40 Blood - Peripheral Anaerobic Blood Culture - Preliminary No growth in 4 days 06/08/18 15:30 Blood - Peripheral Aerobic Blood Culture - Preliminary No growth in 4 days 06/08/18 15:30 Blood - Peripheral Anaerobic Blood Culture - Preliminary No growth in 4 days Assessment and Plan - Plan 73 years old female with Refractory diarrhea Autoimmune colitis -Continue with Solu Medrol IV 40mg Q12H -Plan for EGD/Colonoscopy tomorrow 06/13/18 -Appreciate input from GI Electrolyte derangement syndrome - Replace electrolyte accordingly Acute kidney injury secondary to dehydration, Resolved - Monitor renal function - Avoid nephrotoxins Stage IV lung adenocarcinoma - appreciate assistance from Oncology Hypertension and hypothyroidism -Continue with outpatient medications DVT prophylaxis - Lovenox 40 mg subcu every 24 hours
--- NOTE | 2018-06-12 12:18 | P.PNONC ---
Subjective Interval history: Afebrile. Patient denies any diarrhea. She did have a solid bowel movement today. Reports good appetite. And overall feeling great. She is pending colonoscopy and endoscopy tomorrow. Objective Vital Signs/Intake & Output: Vital Signs 06/11/18 16:00 06/11/18 20:00 06/12/18 00:19 Temperature 97.9 F 97.9 F 98.0 F Pulse Rate 73 76 65 Respiratory Rate 18 17 17 Blood Pressure 145/81 H 131/77 141/79 H Pulse Oximetry 93 L 95 93 L 06/12/18 03:32 06/12/18 08:00 Temperature 98.3 F 97.8 F Pulse Rate 64 72 Respiratory Rate 18 16 Blood Pressure 151/78 H 167/83 H Pulse Oximetry 96 95 Intake & Output 06/11/18 06/12/18 06/12/18 18:59 06:59 18:59 Intake Total 600 / 600 960 / 960 Balance 600 / 600 960 / 960 Weight 45.4 kg Intake: Oral 600 / 600 960 / 960 Other: # Voids 3 2 Date of Last Bowel Movement 06/11/18 06/11/18 # Bowel Movements 0 Result Diagrams: 06/13/18 08:00 06/13/18 08:00 Laboratory Results: Laboratory Results - last 24 hr 06/12/18 06/12/18 06:30 06:30 WBC 9.0 RBC 3.53 L Hgb 10.7 L Hct 30.0 L MCV 85.1 MCH 30.2 MCHC 35.5 RDW 18.1 H Plt Count 240 D MPV 8.0 Neut % (Auto) 86.1 H Lymph % (Auto) 8.7 L [place] % (Auto) 4.9 Eos % (Auto) 0.0 Baso % (Auto) 0.3 Neut # (Auto) 7.8 H Lymph # (Auto) 0.8 L [place] # (Auto) 0.4 Eos # (Auto) 0.0 Baso # (Auto) 0.0 WBC Differential . Differential Comment Auto diff final Sodium 142 Potassium 3.1 L Chloride 105 Carbon Dioxide 27.6 Anion Gap 9 BUN 10 Creatinine 0.92 Estimated GFR 60 L Random Glucose 119 H Calcium 7.6 L Total Bilirubin 0.4 AST 26 ALT 24 Alkaline Phosphatase 69 Total Protein 5.1 L Albumin 2.8 L Culture Results: Microbiology 06/08/18 15:40 Aerobic Blood Culture - Preliminary Blood - Peripheral No growth in 4 days Anaerobic Blood Culture - Preliminary No growth in 4 days 06/08/18 15:30 Aerobic Blood Culture - Preliminary Blood - Peripheral No growth in 4 days Anaerobic Blood Culture - Preliminary No growth in 4 days Medications: Active Medications Generic Name Dose Route Start Last Admin Trade Name Freq PRN Reason Stop Dose Admin Amlodipine Besylate 5 mg 06/09/18 09:00 06/12/18 09:24 Norvasc PO 5 mg DAILY KIMBER Administration Diphenoxylate HCl/Atropine 1 tab 06/09/18 21:41 06/11/18 09:44 Lomotil PO 1 tab Q6H PRN Administration diarrhea Enoxaparin Sodium 40 mg 06/08/18 21:00 06/11/18 21:58 Lovenox Inj SQ 40 mg Q24H KIMBER Administration Lactobacillus Acidophilus 1 tab 06/09/18 13:00 06/12/18 09:25 Lactinex PO 1 tab TID KIMBER Administration Levothyroxine Sodium 50 mcg 06/09/18 06:00 06/12/18 05:35 Synthroid PO 50 mcg DAILY@0600 KIMBER Administration Losartan Potassium 50 mg 06/09/18 09:00 06/12/18 09:25 Cozaar PO 50 mg DAILY KIMBER Administration Methylprednisolone Sodium Succinate 40 mg 06/11/18 09:00 06/12/18 09:25 Solumedrol Inj IV.PUSH 40 mg Q12HR KIMBER Administration Metoclopramide HCl 5 mg 06/08/18 22:52 06/12/18 10:26 Reglan Inj IV.PUSH 5 mg Q8H PRN Administration NAUSEA OR VOMITING Protocol Morphine Sulfate 2 mg 06/08/18 22:54 06/09/18 05:19 Morphine Inj IV.PUSH 2 mg Q3H PRN Administration pain > 4 Ondansetron HCl 4 mg 06/08/18 17:18 06/11/18 17:08 Zofran Inj IV.PUSH 4 mg Q6H PRN Administration NAUSEA OR VOMITING Pantoprazole Sodium 40 mg 06/09/18 09:00 06/12/18 09:25 Protonix PO 40 mg DAILY KIMBER Administration Potassium Chloride 20 meq 06/12/18 09:00 06/12/18 09:24 Klor-Con 10 PO 20 meq DAILY KIMBER Administration Zolpidem Tartrate 10 mg 06/09/18 21:40 06/11/18 21:58 Ambien PO 10 mg HS PRN Administration pain 6-10 Objective Remarks: GENERAL: Elderly female patient, sitting at window, in no acute distress. SKIN: Warm and dry. HEAD: Normocephalic. EYES: No scleral icterus. No injection or drainage. NECK: Supple, trachea midline. CARDIOVASCULAR: +S1/S2 without murmurs. RESPIRATORY: Posterior breath sounds clear, equal bilaterally. GASTROINTESTINAL: Abdomen soft, non-tender, nondistended. +BS EXTREMITIES: No cyanosis, or edema. MUSCULOSKELETAL: Adequate muscle tone. NEUROLOGICAL: No obvious focal deficit. Awake, alert, and oriented x3. PSYCHIATRIC: Appropriate mood and affect; insight and judgment normal. Assessment/Plan (1) Non-small cell carcinoma of left lung, stage 4 Code(s): C34.92 - Malignant neoplasm of unspecified part of left bronchus or lung Status: Chronic (2) Intractable diarrhea Code(s): R19.7 - Diarrhea, unspecified Status: Acute (3) Intractable nausea and vomiting Code(s): R11.2 - Nausea with vomiting, unspecified Status: Acute - Plan 73-year-old female who has a diagnosis of stage IV non-small cell lung cancer with adenocarcinoma histology. She is currently being treated with carboplatin and Alimta and an anti-PDL 1 agent. She presents to the emergency department with refractory diarrhea nausea and vomiting. Plan: 1. Refractory diarrhea, currently resolved. Continue Solu-Medrol 40 mg twice daily for suspected autoimmune colitis. CT abdomen showed thickening to the ascending colon, consistent with early colitis. Pending EGD and colonoscopy tomorrow. 2. Hypokalemia, continues. Currently on potassium supplementation.. 3. Continue supportive care. - Attending Statement The exam, history, and the medical decision-making described in the above note were completed with the assistance of the mid-level provider. I reviewed and agree with the findings presented. I attest that I had a [id number] encounter with the patient on the same day, and personally performed and documented my assessment and findings in the medical record. (3) Intractable nausea and vomiting Qualifiers: Vomiting type: unspecified Qualified Code(s): R11.2 - Nausea with vomiting, unspecified
[2018-06-12] MEDS: Morphine Inj 4 MG/ML Vial IV.PUSH PRN (17:42)
[2018-06-12] MEDS ORDERED: Chlorhexidine Gluconate 2% 1 Pack (2 Cloths) TOPICAL ONE (21:02)
[2018-06-12] MEDS: Enoxaparin Inj 40 MG/0.4 ML Syringe SQ SCH (21:42)
[2018-06-12] MEDS ORDERED: Sodium Chlor 0.9% Inj 500 ML IV.SIG SCH (22:00)
[2018-06-13] MEDS: Levothyroxine 50 MCG Tablet PO SCH (06:05)
[2018-06-13] MEDS: amLODIPine 5 MG Tablet PO SCH (08:00)
[2018-06-13] MEDS: Lactobacillus Acidophilus/L. Spores Tablet PO SCH ×2 (08:01→16:14)
--- NOTE | 2018-06-13 08:35 | P.PNIM ---
Subjective Interval history: Mrs. Pleitez was afebrile with mild HTN overnight (SBP's 140's-170's). Patient reports that she is doing well today; she reports mild nausea but denies vomiting since admission. Patient has had 2 slight bowel movements this morning; she states she did not have colon prep last night. Patient states she has been eating ok since increasing her diet from clear fluids. No chest pain or shortness of breath. Physical Exam Vital signs: Vital Signs 06/12/18 09:00 06/12/18 12:00 06/12/18 15:52 Temperature 98.2 F 98.2 F Pulse Rate 72 75 71 Respiratory Rate 16 16 Blood Pressure 141/96 H 157/88 H Pulse Oximetry 94 L 95 06/12/18 20:00 06/13/18 00:00 06/13/18 04:00 Temperature 98.1 F 97.8 F 97.6 F Pulse Rate 65 66 71 Respiratory Rate 16 16 16 Blood Pressure 162/86 H 141/94 H 177/86 H Pulse Oximetry 95 96 96 Intake & Output 06/12/18 06/13/18 06/13/18 18:59 06:59 18:59 Intake Total 1080 / 1080 Balance 1080 / 1080 Weight 45.4 kg Intake: Oral 1080 / 1080 Other: # Voids 3 2 Date of Last Bowel Movement 06/12/18 06/12/18 # Bowel Movements 2 1 Narrative: GENERAL: NAD. Skin: No visible lesions CARDIOVASCULAR: Regular rate and rhythm without murmurs. Grossly normal perfusion RESPIRATORY: CTAB; normal rate GASTROINTESTINAL: Abdomen soft, non-tender, nondistended. Normal active bowel sounds MUSCULOSKELETAL: Extremities without edema; no calf asymmetry NEURO: Alert & Oriented. Grossly normal CN. Grossly normal peripheral motor/ sensory function Results - Labs CBC & Chem 7: 06/12/18 06:30 06/12/18 06:30 Microbiology 06/08/18 15:40 Blood - Peripheral Aerobic Blood Culture - Preliminary No growth in 4 days 06/08/18 15:40 Blood - Peripheral Anaerobic Blood Culture - Preliminary No growth in 4 days 06/08/18 15:30 Blood - Peripheral Aerobic Blood Culture - Preliminary No growth in 4 days 06/08/18 15:30 Blood - Peripheral Anaerobic Blood Culture - Preliminary No growth in 4 days Assessment and Plan - Assessment (1) Intractable diarrhea Code(s): R19.7 - Diarrhea, unspecified Status: Acute (2) Intractable nausea and vomiting Code(s): R11.2 - Nausea with vomiting, unspecified Status: Acute (3) Non-small cell carcinoma of left lung, stage 4 Code(s): C34.92 - Malignant neoplasm of unspecified part of left bronchus or lung Status: Chronic - Plan Mrs. Pleitez is s 73 year old female with: Refractory diarrhea Impression: Reportedly started following chemotherapy. CT A/P with colonic thickening suggestive of colitis GI consulted -Continue with Solu Medrol IV 40mg Q12H for suspected autoimmune colitis -Continue Lomotil -Continue electrolyte replacement -Plan for EGD/Colonoscopy today Electrolyte abnormalities Impression: K3.1 today; otherwise unremarkable - Replace electrolytes accordingly Acute kidney injury secondary to dehydration, Resolved - Monitor renal function - Avoid nephrotoxins Stage IV lung adenocarcinoma - appreciate assistance from Oncology Hypertension and hypothyroidism -Continue with outpatient medications DVT prophylaxis - Lovenox 40 mg subcu every 24 hours Code Status: Full code Discharge Planning: Pending colonoscopy/endoscopy; GI and Heme/Onc clearance (2) Intractable nausea and vomiting Qualifiers: Vomiting type: unspecified Qualified Code(s): R11.2 - Nausea with vomiting, unspecified
[2018-06-13 08:50] LABS: Baso % (Auto) 0.1 % (0.0-2.0); Hematocrit 34.2 % (35.0-46.0); Hemoglobin 11.8 gm/dL (11.6-15.3); Lymph # (Auto) 1.6 th/mm3 (1.0-4.8); Lymph % (Auto) 16.2 % (9.0-44.0); Mean Corpuscular HGB Conc 34.6 % (32.0-36.0); Mean Corpuscular Hemoglobin 29.8 pg (27.0-34.0); Mean Corpuscular Volume 86.1 fL (80.0-100.0); Mean Platelet Volume 8.3 fL (7.0-11.0); Mono # (Auto) 0.9 th/mm3 (0.0-0.9); Mono % (Auto) 8.9 % (0.0-8.0); Neut # (Auto) 7.2 th/mm3 (1.8-7.7); Neut % (Auto) 74.8 % (16.0-70.0); Platelet Count 274 th/mm3 (150-450); Red Blood Count 3.98 mil/mm3 (4.00-5.30); Red Cell Distribution Width 18.4 % (11.6-17.2); White Blood Count 9.7 th/mm3 (4.0-11.0)
[2018-06-13] MEDS ORDERED: predniSONE 20 MG Tablet PO SCH (09:00)
[2018-06-13 09:10] LABS: Calcium 8.4 mg/dL (8.5-10.1); Carbon Dioxide 28.6 meq/L (21.0-32.0)
[2018-06-13 10:07] LABS: Acanthocytes 1+; Burr Cells 1+; Lymphocytes 9 % (9-44); Metamyelocytes 2 % (0-1); Monocytes 10 % (0-8); Ovalocytes 1+; Toxic Granulation 1+
[2018-06-13 10:08] LABS: Platelet Estimate Normal (Normal); Platelet Morphology Normal (Normal)
--- NOTE | 2018-06-13 12:26 | GIPROC ---
[facility] [address] [facility]. [facility] [place], [address] EGD PROCEDURE REPORT EXAM DATE: 06/13/2018 PATIENT NAME: Alondra Pleitez MR #: [id number] BIRTHDATE: 1945 ATTENDING: Magdalene Bronson MD ORDER #: [id number] CAN FILLING AND CLOSING MACHINE TENDER: Jamee Mancini and Yuridia Gonzalez STATUS: inpatient INDICATIONS: The patient is a 73 yr old female here for an EGD due to nausea and vomiting PROCEDURE PERFORMED: EGD w/ biopsy MEDICATIONS: None and Per Anesthesia. TOPICAL ANESTHETIC: none CONSENT: The patient understands the risks and benefits of the procedure and understands that these risks include, but are not limited to: sedation, allergic reaction, infection, perforation and/or bleeding. Alternative means of evaluation and treatment include, among others: physical exam, x-rays, and/or surgical intervention. The patient elects to proceed with this endoscopic procedure. medical equipment was checked for proper function. Hand hygiene and appropriate measures for infection prevention was taken. After the risks, benefits and alternatives of the procedure were thoroughly explained, Informed consent was verified, confirmed and timeout was successfully executed by the treatment team. The patient was anesthetized with topical anesthesia and the Pentax [id number] endoscope was introduced through the mouth and advanced to the second portion of the duodenum. Retroflexion was performed and was normal The gastroscope was then slowly withdrawn and removed. ESOPHAGUS: The mucosa of the esophagus appeared normal. STOMACH: There was mild gastritis in the gastric antrum. Multiple biopsies were performed. DUODENUM: The duodenal mucosa appeared normal in the bulb and second portion of the duodenum and 3rd part duodenum. ADVERSE EVENTS: There were no complications. IMPRESSIONS: 1. The esophagus appeared normal 2. There was mild gastritis in the gastric antrum; multiple biopsies were performed 3. Normal duodenal mucosa in the bulb and second portion of the duodenum and 3rd part duodenum 4. Retroflexion was performed and was normal RECOMMENDATIONS: 1. Await biopsy results. Biopsy results will not be ready for 7-10 days. If you don't hear from us in two weeks, call our office for biopsy results. 2. Continue PPI 3. Colonoscopy as outpatient PATIENT CONDITION: stable DISPOSITION: Observation REPEAT EXAM: Needs outpatient Colonoscopy Magdalene Bronson MD eSigned: Magdalene Bronson MD 06/13/2018 12:25 PM cc: PATIENT NAME: Alondra Pleitez MR#: [id number]
[2018-06-13] MEDS ORDERED: Heparin Central Flush 100 UNIT/ML 5 ML Vial IV.FLUSH ONE (16:00)
--- NOTE | 2018-07-05 16:17 | P.DS ---
Date of admission: 06/08/18 17:14 Primary care physician: Cristofer Carrion MD Attending physician on discharge: Mario Alberto Walters Anticipated date of discharge: 06/13/18 Brief History from admission: Mrs. Pleitez is a 73-year-old female with a history of stage IV lung cancer, lupus, COPD, hypothyroidism, hypertension, GERD, and DVT who presented to the ER with complaints of nausea vomiting and diarrhea. She had chemo approximately 6 weeks ago but she has not been able to tolerate it because of nausea, vomiting, and electrolyte abnormalities. Dr. Kang is her oncologist who recommended that she present to the emergency room. She is admitted to the hospitalist service for further evaluation and medical management. The patient is seen in her hospital room. She reports abdominal pain with nausea and vomiting for the last 6 weeks since receiving chemotherapy for lung cancer. She was hospitalized 05/31 through 06/04 with similar complaints. She was discharged when she stabilized, but tells me that her symptom of nausea never really got better and that shortly after discharge the vomiting and diarrhea began. She reports 4-5 loose stools per day with nausea and vomiting occurring about the same amount. She states that food seems to bring her symptoms on. She reports abdominal pain from constant retching and from dry heaves. She reports that Reglan given in the ER seemed to make her nausea a little bit better, but nothing completely ameliorates. She reports a 20 lb weight loss over the past 6 weeks. Patient update on day of discharge: Mrs. Pleitez was afebrile with mild HTN overnight (SBP's 140's-170's). Patient reports that she is doing well today; she reports mild nausea but denies vomiting since admission. Patient has had 2 slight bowel movements this morning; she states she did not have colon prep last night. Patient states she has been eating ok since increasing her diet from clear fluids. No chest pain or shortness of breath DS: Diagnosis - Discharge Diagnosis (1) Intractable diarrhea Status: Acute (2) Intractable nausea and vomiting Status: Acute (3) Non-small cell carcinoma of left lung, stage 4 Status: Chronic DS: Medications - Discharge Medications Prescriptions: acidophilus-sporogenes [Acidophilus Ex Str (L. sporog)] 1 tab PO TID #90 tab pantoprazole 40 mg PO DAILY #30 tab potassium chloride [Klor-Con 10] 20 meq PO DAILY #30 tab prednisone 20 mg PO DAILY #35 tab DS: Summary Hospital Course: Mrs. Pleitez is a 73-year-old female with PMH of stage IV lung cancer, lupus, COPD, hypothyroidism, hypertension, GERD, and DVT who presented to [place] ED 06/08 with complaints of nausea, vomiting, diarrhea, and weight loss per recommendation of her Oncologist.On admission, patient was found to have severe hypokalemia (K 2.3) and mild Cr elevation (1.32). Patient was given potassium and magnesium replacement during hospitalization. Patient had CT of abdomen/ pelvis whish demonstrated colonic thickening suggestive of colitis. Gastroenterology and Oncology were consulted; patient was given antiemetics, lomotil, and Solumedrol for suspicion of autoimmune colitis and diverticulosis. Patient's Cr and K improved during hospitalization. Patient underwent EGD 06/13 which demonstrated mild gastritis in antrum; biopsies obtained. Patient was advised to continue PPI and oral Prednisone at discharge with plan for follow- up with GI for colonoscopy and EGD biopsy results and follow-up with Oncology. Patient advised to continue to monitor electrolytes as outpatient with BMP. - Time Spent with Patient Total time spent providing and/or coordinating discharge services: Less than 30 minutes - Quality: VTE Deep Vein Thrombosis/Pulmonary Embolism Present on Admission: No Exam Vital signs: Initial Documented Vital Signs Temperature 97.1 F L 06/08/18 13:14 Pulse Rate 83 06/08/18 13:14 Blood Pressure 126/83 06/08/18 13:14 Pulse Oximetry 97 06/08/18 13:14 Last Documented Vital Signs Temperature 98.0 F 06/13/18 08:00 Pulse Rate 71 06/13/18 08:00 Respiratory Rate 16 06/13/18 08:00 Blood Pressure 191/94 H 06/13/18 08:00 Pulse Oximetry 96 06/13/18 08:00 Narrative: GENERAL: NAD. Skin: No visible lesions CARDIOVASCULAR: Regular rate and rhythm without murmurs. Grossly normal perfusion RESPIRATORY: CTAB; normal rate GASTROINTESTINAL: Abdomen soft, non-tender, nondistended. Normal active bowel sounds MUSCULOSKELETAL: Extremities without edema; no calf asymmetry NEURO: Alert & Oriented. Grossly normal CN. Grossly normal peripheral motor/ sensory function Results Procedures completed during hospitalization: EGD/biopsy 06/13 Completed studies during hospitalization: Pending at discharge 06/13/18 09:08 Surgical [PTH] Routine - Impressions ITS Impressions Chest X-Ray 06/08/18 15:08 CONCLUSION: 1. No acute abnormality or significant interval change. Abdomen/Pelvis CT 06/10/18 00:00 CONCLUSION: 1. Bowel wall thickening ascending colon suggesting early colitis. 2. Diverticulosis coli in the sigmoid colon without active inflammatory changes. 3. There is no ascites. Discharge Plan - Discharge Disposition Patient Disposition: Discharge Home - Discharge Condition Condition: Fair - Discharge Order Discharge Orders: Discharge Order (Routine); Ordered 06/13/18 Ordered By: Mario Alberto Walters - Discharge Details Anticipated Discharge Date: 06/13/18 - Physicians Team Primary Care Provider: Cristofer Carrion Attending Provider: Mario Alberto Walters Other Providers: Werner Kang MD ; Magdalene Bronson MD
== END 2018-06-13 16:31 | disposition home or self-care (01) ==
LOC: NEPC 13:09 → NEDA 17:14 → N06 20:23
PROVIDERS: ADMIT Family Medicine; ATTEND Family Medicine
PROC: PANENDO (2018-06-13 11:58)

== ENCOUNTER 2018-07-20 08:33 | Inpatient (IN) ==
[2018-07-20] MEDS ORDERED: Sod Chloride 0.9% Inj 1,000 ML IV.CONT SCH (09:30)
[2018-07-20] MEDS ORDERED: fentaNYL Citrate Inj 250 MCG/5 ML Ampul ONE (10:10)
--- NOTE | 2018-07-20 11:30 | P.RAD ---
Post CT Procedure Prog Note - Pre Procedure Diagnosis (1) Non-small cell carcinoma of left lung, stage 4 - Post Procedure Diagnosis (1) Non-small cell carcinoma of left lung, stage 4 - Procedure Information Procedure Date: 07/20/18 Supervising Radiologist: Juan Pablo Morales Jr, MD Proceduralist/Assist: Shiloh Estimated blood loss (mL): 0 Anesthesia: Conscious Sedation - Plan of Activity Patient to Unit: ROPU Patient condition: Good See PACS Report for procedural detail/treatment. Biopsy CT left Lung Specimen: Core Biopsy Findings: 3 core specimens of LLL lung mass performed. Small fragments of tissue noted. Post bx CT shows small PTX and hemorrhage. F/U CXR pending. Pt doing well.
--- NOTE | 2018-07-20 11:54 | XR ---
EXAM DATE: 07/20/2018 11:26 AM EDT AGE/SEX: 73 years / Female INDICATIONS: Post left lung biopsy CLINICAL DATA: This is the patient's initial encounter. Patient reports that signs and symptoms have been present for 1 day and indicates a pain score of 0/10. MEDICAL/SURGICAL HISTORY: Carcinoma, lung. Chronic obstructive pulmonary disease. Gastroesoph ageal reflux disease. Lupus and hypertension Hysterectomy. Lumbar dis ectomy COMPARISON: [facility] [place], CT BIOPSY LUNG LEFT, 07/20/2018. . FINDINGS: 2 cm left pneumothorax. Right lung clear. The heart and pulmonary vascularity are normal. The portion of the bony skeleton visualized is unremarkable. CONCLUSION: 2 cm left pneumothorax. Electronically signed by: Bautista Ramirez MD 07/20/2018 11:53 AM EDT
[2018-07-20] MEDS ORDERED: HYDROmorphone PF Inj 2 MG/ML Vial ONE (11:56)
[2018-07-20] MEDS ORDERED: fentaNYL Citrate Inj 100 MCG/2 ML Ampul ONE (13:56)
[2018-07-20] MEDS ORDERED: Lidocaine 1%/Epinephrine 1:100,000 Inj 20 ML Vial I-DERMAL ONE (14:11)
--- NOTE | 2018-07-20 14:50 | P.RAD ---
Post Procedure Progress Note - Pre Procedure Diagnosis (1) Pneumothorax, post biopsy, left - Post Procedure Diagnosis (1) Pneumothorax, post biopsy, left - Procedure Information Procedure Date: 07/20/18 Supervising Radiologist: Juan Pablo Morales Jr, MD Proceduralist/Assist: Sofía Guzman Estimated blood loss (mL): 0 - Plan of Activity Patient to Unit: ROPU Patient Condition: Good See PACS Report for procedural detail/treatment. Drainage Procedure Fluoroscopy left Chest Tube Non-Tunneled Placement Tong[place] Tube Size: 10 Drainage: Pleurovac Findings: Enlarging left PTX following lung bx. Placed left chest tube with resolution of PTX. Plan: F/U cxr. admit overnight
--- NOTE | 2018-07-20 14:58 | XR ---
EXAM DATE: 07/20/2018 1:30 PM EDT AGE/SEX: 73 years / Female INDICATIONS: Status post left lung biopsy. Evaluate pneumothorax. CLINICAL DATA: This is the patient's subsequent encounter. Patient reports that signs and symptoms h ave been present for 1 day and indicates a pain score of 0/10. MEDICAL/SURGICAL HISTORY: Carcinoma, lung. Hypertension. Discectomy, lumbar. Hysterectomy. A ppendectomy. Infuse a port. COMPARISON: [facility] [place], CHEST EXPIRATION ONLY, 07/20/2018. . FINDINGS: The previously seen left pneumothorax is larger measures 5.0 cm, it measured 2.0 cm on the study from 2 hours ago. There is no shift. There is of the examination has not changed. CONCLUSION: Increase in size of the left pneumothorax post lung biopsy. Electronically signed by: Lexx Boothe MD 07/20/2018 2:56 PM EDT
--- NOTE | 2018-07-20 15:05 | CT ---
EXAM DATE: 07/20/2018 9:34 AM EDT AGE/SEX: 73 years / Female INDICATIONS: Left lung nodule CLINICAL DATA: This is the patient's initial encounter. Patient reports that signs and symptoms have been present for 1 day and indicates a pain score of 0/10. MEDICAL/SURGICAL HISTORY: Chronic obstructive pulmonary disease. Hypertension. Hysterectomy. Discectomy, lumbar. [place] [facility] [place]/2018. . SEDATION TIME (min): 30 BIOPSY SITE: Left lung MEDICATION(S): 3 mg midazolam (Versed) IV 150 mcg fentanyl (Sublimaze) IV DEVICE(S): 19 gauge Introducer 20 gauge Bunch blunt needle Three . . PROCEDURE: CT guided Left lung biopsy Prior to the procedure informed consent was obtained. Any appropriate prior imaging studies were rev iewed. Using automated exposure control and adjustment of the mA and/or kV according to patient size , radiation dose was kept as low as reasonably achievable to obtain optimal diagnostic quality images . DICOM format image data is available electronically for review and comparison. I reviewed the patient's prior imaging including a PET/CT. The small nodule within the left lower lob e was targeted during the biopsy. The site was prepped in a sterile fashion. Full sterile technique was used, including cap, mask, sterile gloves and gown and a large sterile sheet. Hand hygiene and 2 % chlorhexidine and/or betadine/alcohol prep was utilized per protocol for cutaneous antisepsis. The skin and subcutaneous tissues were infiltrated with local anesthetic solution. With CT guidance the previously identified target was localized. Biopsy was performed using the presc ribed needle as above. 3 core samples were taken. Adequate hemostasis was obtained with compression at the puncture site. Follow-up CT scan reveals a small pneumothorax. A small volume of intraparenchymal hemorrhage also no angela. The patient remained hemodynamically stable. Conscious sedation was performed with the prescribed dosages and duration as above in the presence of an independent trained radiology nurse to assist in the monitoring of the patient. EKG and oximetry remained stable throughout the procedure. The patient tolerated the procedure well and there were no complications. The patient was sent to Radiology Outpatient Unit in stable condition. CONCLUSION: 1. Uncomplicated CT guided core biopsy of a small left lower lobe pulmonary nodule. Postbiopsy image s show a small pneumothorax. This will be followed with chest x-ray. Electronically signed by: Juan Pablo Morales MD 07/20/2018 3:04 PM EDT
[2018-07-20] MEDS ORDERED: HYDROmorphone PF Inj 1 MG/ML Ampul ONE (15:13)
--- NOTE | 2018-07-20 15:18 | IR ---
EXAM DATE: 07/20/2018 12:00 AM EDT AGE/SEX: 73 years / Female INDICATIONS: Patient with a history of left pneumothorax, post lung biopsy. CLINICAL DATA: This is the patient's initial encounter. Patient reports that signs and symptoms have been present for 1 day and indicates a pain score of 7/10. MEDICAL/SURGICAL HISTORY: . HTN COPD GERD Lung cancer Lupus . Hysterectomy Lumbar discectomy COMPARISON: No prior exams available for comparison. FLUORO TIME (min): 0.6 IMAGE SERIES: 1 ACCESS SITE: SEDATION TIME (min): 30 MEDICATION(S): 2MG midazolam (Versed) IV 100MCG fentanyl (Sublimaze) IV DEVICE(S): 10 Citizen Of [place] non-locking catheter . . PROCEDURE: 1. Fluoroscopically guided chest tube placement. 2. Conscious sedation with continuous EKG and oximetry monitoring. The risks, benefits and alternatives to the procedure were explained and verbal and written consent w as obtained. The site was prepped in sterile fashion. Full sterile technique was used, including ca p, mask, sterile gloves and gown and a large sterile sheet. Hand hygiene and 2% chlorhexidine and/or betadine/alcohol prep was utilized per protocol for cutaneous antisepsis. The skin and subcutaneous tissues were infiltrated with local anesthetic solution. With fluoroscopic guidance the chest was punctured between the first and second interspace and the pr escribed catheter was placed in the lung apex. Wall suction was applied. Post procedure images demon strate satisfactory position of the tube. The catheter was sutured in place and a Percu-Stay was carli lied. Conscious sedation was performed with the prescribed dosages and duration as above in the presence of an independent trained radiology nurse to assist in the monitoring of the patient. EKG and oximetry remained stable throughout the procedure. The patient tolerated the procedure well and there were n o complications. The patient was sent to post anesthesia recovery in stable condition. CONCLUSION: 1. Uncomplicated left chest tube placement as above. Electronically signed by: Juan Pablo Morales MD 07/20/2018 3:16 PM EDT
--- NOTE | 2018-07-20 15:23 | XR ---
EXAM DATE: 07/20/2018 2:45 PM EDT AGE/SEX: 73 years / Female INDICATIONS: Post chest tube placement. CLINICAL DATA: This is the patient's initial encounter. Patient reports that signs and symptoms have been present for 1 day and indicates a pain score of 0/10. MEDICAL/SURGICAL HISTORY: . Chronic obstructive pulmonary disease. Hypertension. . Infusaport .Hysterectomy. Discectomy, lumbar. COMPARISON: [facility] [place], [place] BIOPSY LUNG LEFT, 07/20/2018. . FINDINGS: Left apical pigtail thoracostomy tube is now present. There is been resolution of pneumothorax. Right chest port is stable in good position. Patchy interstitial changes again noted. Cardiac contours are unchanged. CONCLUSION: Left thoracostomy tube in good position. Pneumothorax resolved. Electronically signed by: Maverick Calderón MD 07/20/2018 3:22 PM EDT
[2018-07-20] MEDS ORDERED: Sodium Chloride 0.9% 2 ML Flush PRN IV.FLUSH (16:27)
[2018-07-20] MEDS ORDERED: Heparin Central Flush 100 UNIT/ML 5 ML Vial IV.FLUSH PRN (16:28)
[2018-07-20] MEDS: Heparin Central Flush 100 UNIT/ML 5 ML Vial IV.FLUSH SCH (18:32)
[2018-07-20] MEDS: Sodium Chloride 0.9% 2 ML Flush BID IV.FLUSH SCH (20:37)
--- NOTE | 2018-07-21 01:10 | XR ---
EXAM DATE: 07/21/2018 12:36 AM EDT AGE/SEX: 73 years / Female INDICATIONS: Status post left sided chest tube removal. CLINICAL DATA: This is the patient's subsequent encounter. Patient reports that signs and symptoms h ave been present for 1 day and indicates a pain score of 0/10. MEDICAL/SURGICAL HISTORY: . Chronic obstructive pulmonary disease. Hypertension. . Infusaport . COMPARISON: [facility] – [place], CHEST 1V SINGLE AP, 06/08/2018. . FINDINGS: The cardiac silhouette is normal in transverse diameter. [id number] is in place via right internal jugular approach with its tip in the superior vena cava. There is a tiny left apical pneumothorax wi th a small volume of subcutaneous air. There are no signs of tension. CONCLUSION: Small left apical pneumothorax without tension Electronically signed by: Maurisio Lutz MD 07/21/2018 1:09 AM EDT
[2018-07-21 07:19] LABS: Hematocrit 32.1 % (35.0-46.0); Hemoglobin 10.9 gm/dL (11.6-15.3); Mean Corpuscular HGB Conc 33.9 % (32.0-36.0); Mean Corpuscular Hemoglobin 31.4 pg (27.0-34.0); Mean Corpuscular Volume 92.6 fL (80.0-100.0); Mean Platelet Volume 6.6 fL (7.0-11.0); Platelet Count 349 th/mm3 (150-450); Red Blood Count 3.46 mil/mm3 (4.00-5.30); Red Cell Distribution Width 21.1 % (11.6-17.2); White Blood Count 5.6 th/mm3 (4.0-11.0)
--- NOTE | 2018-07-21 07:39 | XR ---
EXAM DATE: 07/21/2018 7:00 AM EDT AGE/SEX: 73 years / Female INDICATIONS: Evaluate for pneumothorax. Chest tube pulled out via patient. CLINICAL DATA: This is the patient's subsequent encounter. Patient reports that signs and symptoms h ave been present for 2 days and indicates a pain score of 0/10. MEDICAL/SURGICAL HISTORY: . Chronic obstructive pulmonary disease. Hypertension. . . Infusapo rt. COMPARISON: [facility], CHEST 1V SINGLE AP, 07/21/2018. . FINDINGS: Persistent trace left apical pneumothorax. Stable subcutaneous emphysema in the left chest wall. Mild diffuse interstitial prominence. Cardiomediastinal contours are stable. Remainder of the exam is unc hanged. CONCLUSION: 1. Stable trace left apical pneumothorax and mild subcutaneous left chest wall emphysema. Electronically signed by: Ronny Duncan MD 07/21/2018 7:37 AM EDT
[2018-07-21 07:48] LABS: Calcium 8.8 mg/dL (8.5-10.1); Carbon Dioxide 27.1 meq/L (21.0-32.0); Potassium 3.1 meq/L (3.5-5.1)
[2018-07-21 08:30] VITALS: PULSE 84; RESP 16; TEMP 98.1; O2SAT 98
[2018-07-21] MEDS: Sodium Chloride 0.9% 2 ML Flush BID IV.FLUSH SCH (09:09)
--- NOTE | 2018-07-21 09:29 | P.PN ---
Subjective Interval history: alert no sob CT accidentaly removed during night cxray trace PNX ,SMALL sq air Physical Exam Vital signs: Vital Signs 07/20/18 11:40 07/20/18 11:55 07/20/18 12:25 Temperature Pulse Rate 100 H 94 H 84 Respiratory Rate 20 20 18 Blood Pressure 141/86 H 131/88 129/83 Pulse Oximetry 92 L 90 L 95 07/20/18 12:30 07/20/18 12:55 07/20/18 14:41 Temperature 97.9 F Pulse Rate 80 70 Respiratory Rate 18 18 16 Blood Pressure 142/84 H 142/69 H Pulse Oximetry 95 93 L 07/20/18 14:55 07/20/18 15:10 07/20/18 15:39 Temperature Pulse Rate 76 75 78 Respiratory Rate 18 18 20 Blood Pressure 149/88 H 158/94 H 155/86 H Pulse Oximetry 98 98 07/20/18 16:10 07/20/18 20:00 07/21/18 00:01 Temperature 98.2 F 97.5 F L Pulse Rate 69 80 83 Respiratory Rate 18 18 18 Blood Pressure 140/67 168/72 H 158/88 H Pulse Oximetry 97 96 94 L 07/21/18 04:40 07/21/18 08:00 Temperature 97.8 F 98.1 F Pulse Rate 85 84 Respiratory Rate 18 16 Blood Pressure 160/76 H 183/93 H Pulse Oximetry 97 98 Intake & Output 07/20/18 07/21/18 07/21/18 18:59 06:59 18:59 Intake Total 240 / 240 Output Total 0 / 0 Balance 0 / 0 240 / 240 Weight 45.359 kg 44.8 kg Intake: Oral 240 / 240 Output: Chest Tube Drainage 0 / 0 #1 Left Anterior 0 / 0 Other: # Voids 6 Weight On Admission 100 kg - Constitutional no acute distress - Routine HEENT Exam Head: Present: normocephalic Eye: Present: EOMI ENT: Present: mucous membranes moist - Routine Neck Exam Present: supple - Routine Cardiovascular Exam Present: RRR, S1, S2 - Routine Abdominal Exam Present: soft Results - Labs CBC & Chem 7: 07/21/18 06:00 07/21/18 06:00 Laboratory Results - last 24 hr 07/21/18 07/21/18 06:00 06:00 WBC 5.6 RBC 3.46 L Hgb 10.9 L Hct 32.1 L MCV 92.6 MCH 31.4 MCHC 33.9 RDW 21.1 H Plt Count 349 D MPV 6.6 L Sodium 138 Potassium 3.1 L Chloride 104 Carbon Dioxide 27.1 Anion Gap 7 BUN 6 L Creatinine 0.80 Estimated GFR 70 L Random Glucose 85 Calcium 8.8 - Imaging Impressions Chest Tube Insertion 07/20/18 00:00 CONCLUSION: 1. Uncomplicated left chest tube placement as above. Lung Biopsy CT 07/20/18 00:00 CONCLUSION: 1. Uncomplicated CT guided core biopsy of a small left lower lobe pulmonary nodule. Postbiopsy images show a small pneumothorax. This will be followed with chest x-ray. Chest X-Ray 07/20/18 11:26 CONCLUSION: 2 cm left pneumothorax. Chest X-Ray 07/20/18 13:30 CONCLUSION: Increase in size of the left pneumothorax post lung biopsy. Chest X-Ray 07/20/18 14:45 CONCLUSION: Left thoracostomy tube in good position. Pneumothorax resolved. Chest X-Ray 07/21/18 00:36 CONCLUSION: Small left apical pneumothorax without tension Chest X-Ray 07/21/18 07:00 CONCLUSION: 1. Stable trace left apical pneumothorax and mild subcutaneous left chest wall emphysema. Assessment and Plan - Plan post bx pnx mostly resolved plan observe few hours , if stable may go home f/u office
[2018-07-21] MEDS ORDERED: Diphenoxylate/Atropine 2.5/0.025 MG Tablet PO PRN (10:46)
[2018-07-21] MEDS ORDERED: predniSONE 20 MG Tablet PO SCH (11:00)
[2018-07-21] MEDS ORDERED: amLODIPine 5 MG Tablet PO SCH (11:00)
--- NOTE | 2018-07-21 11:10 | P.HP ---
History of Present Illness Service: Medicine Primary Care Physician: Юлия Redman MD Chief Complaint: Pneumothorax s/p lung biopsy History of Present Illness: Mrs. Pleitez is a 73-year-old female with a history of stage IV lung cancer s/ p chemo, lupus, COPD, hypothyroidism, hypertension, GERD, and PE presented to [facility] [place] for an outpatient CT-guided needle biopsy of the left lower lobe of her lung on 07/20/18. After the procedure was performed, the patient became short of breath and repeat chest X-ray revealed enlarging pneumothorax. A chest tube was placed in the night with resolution of the pneumothorax. The patient was admitted. She has had some sensations of nausea and abdominal cramping. She denies chest pain, shortness of breath, wheezing, headache, vision changes, fever, chills. - Diagnosis (1) Pneumothorax, post biopsy, left Inpatient Certification: I certify that the inpatient services were ordered in accordance with Medicare regulations governing the order. This includes certification that hospital inpatient services are reasonable and necessary and in the case of services not specified as inpatient-only under 42 CFR 419.22(n), that they are appropriately provided as inpatient services in accordance to with the 2-midnight benchmark under 43 CFR 412.3(e) Estimated Total Length of Stay (Days): 1 Plans for Post Hospital Care: Home Review of Systems All other systems reviewed negative except as stated in HPI PMFSH - History History Provided By: Patient - Medical History Medical History: Medical History (Last Reviewed 07/21/18 @ 11:17 by George Sim) COPD (chronic obstructive pulmonary disease) Cataract fragments in eye following surgery Chemotherapy induced nausea and vomiting DVT (deep venous thrombosis) GERD (gastroesophageal reflux disease) HTN (hypertension) Hypothyroid Lung cancer Lupus - Surgical History Surgical History: Surgical History (Last Reviewed 07/21/18 @ 11:17 by George Sim) H/O foot surgery H/O hysterectomy with oophorectomy H/O lumbar discectomy Hx of tonsillectomy - Family History Family History: Family History (Last Reviewed 07/21/18 @ 11:17 by George Sim) Father Myocardial infarction Mother Stroke - Tobacco History Second Hand Smoke Exposure: No Tobacco Use In Past 30 Days: No Smoking Status: Former smoker Tobacco Type: Cigarettes - Alcohol History How Often Do You Have a Drink Containing Alcohol: Never - Substance Use History Substance History: No History of Abuse - Travel History Recent Travel in the [place] Within the Last 8 Weeks: No Recent Travel Out of the Country Within the Last 8 Weeks: No - Immunization History Tetanus Immunization: Unsure Hx Influenza Vaccine This Season: No Medications and Allergies Active Medications: Active Medications Hydrocodone Bitart/Acetaminophen ([place] 5/325) 1 tab PO Q6H PRN PRN Reason: pain 2-10 Amlodipine Besylate (Norvasc) 5 mg PO DAILY [facility] Diphenoxylate HCl/Atropine (Lomotil) 1 tab PO Q6H PRN PRN Reason: Diarrhea Enalaprilat (Vasotec Inj) 2.5 mg IV.PUSH Q6H PRN PRN Reason: SBP>160, DBP>90 Heparin Sodium (Porcine) (Heparin Central Flush) 250 unit IV.FLUSH UNSCH PRN PRN Reason: SEE LABEL COMMENTS Heparin Sodium (Porcine) (Heparin Central Flush) 500 unit IV.FLUSH Q21D [facility] Last Admin: 07/20/18 18:32 Dose: Not Given Hydroxychloroquine Sulfate (Plaquenil) 200 mg PO BID [facility] Levothyroxine Sodium (Synthroid) 50 mcg PO DAILY@0600 [facility] Non-Formulary Medication (Losartan-Hydrochlorothiazide [Losartan- Hydrochlorothiazide]) 1 tab PO DAILY [facility] Pantoprazole Sodium (Protonix) 40 mg PO DAILY [facility] Potassium Chloride (Klor-Con 10) 40 meq PO ONCE ONE Stop: 07/21/18 10:51 Prednisone (Deltasone) 20 mg PO DAILY [facility] Prochlorperazine Maleate (Compazine) 10 mg PO Q6H PRN Scopolamine (Transderm-Scop 1.5 Mg Patch.72hr) 1 patch T-DERMAL Q72H [facility] Sodium Chloride (Ns Flush) 2 ml IV.FLUSH BID [facility] Last Admin: 07/21/18 09:09 Dose: Not Given Sodium Chloride (Ns Flush) 2 ml IV.FLUSH PRN PRN PRN Reason: FLUSH AFTER USING IV ACCESS Sodium Chloride (Ns Flush) 5 ml IV.FLUSH UNSCH PRN PRN Reason: SEE LABEL COMMENTS Sodium Chloride (Ns Flush) 5 ml IV.FLUSH Q21D [facility] Last Admin: 07/20/18 18:32 Dose: Not Given Allergies Allergy/AdvReac Type Severity Reaction Status Date / Time No Known Allergies Allergy Verified 07/20/18 08:55 Home Medications Medication Instructions Recorded Confirmed Type amlodipine [Norvasc] 5 mg PO DAILY 04/12/18 07/20/18 History hydroxychloroquine 200 mg PO BID 04/12/18 07/20/18 History levothyroxine 50 mcg PO DAILY 04/12/18 07/20/18 History losartan-hydrochlorothiazide 1 tab PO DAILY 04/12/18 07/20/18 History ondansetron HCl 8 mg PO TID PRN 04/27/18 07/20/18 History cholecalciferol (vitamin D3) 1,000 unit PO DAILY 05/31/18 07/20/18 History [Vitamin D3] cyanocobalamin (vitamin B-12) 1,000 mcg PO DAILY 05/31/18 07/20/18 History [Vitamin B-12] dexamethasone 4 mg PO Q12H PRN 07/20/18 07/20/18 History magnesium 500 mg PO DAILY 07/20/18 07/20/18 History prochlorperazine maleate 10 mg PO Q6-8H PRN 07/20/18 07/20/18 History Exam Vital signs: Vital Signs 07/20/18 11:40 07/20/18 11:55 07/20/18 12:25 Temperature Pulse Rate 100 H 94 H 84 Respiratory Rate 20 20 18 Blood Pressure 141/86 H 131/88 129/83 Pulse Oximetry 92 L 90 L 95 07/20/18 12:30 07/20/18 12:55 07/20/18 14:41 Temperature 97.9 F Pulse Rate 80 70 Respiratory Rate 18 18 16 Blood Pressure 142/84 H 142/69 H Pulse Oximetry 95 93 L 07/20/18 14:55 07/20/18 15:10 07/20/18 15:39 Temperature Pulse Rate 76 75 78 Respiratory Rate 18 18 20 Blood Pressure 149/88 H 158/94 H 155/86 H Pulse Oximetry 98 98 07/20/18 16:10 07/20/18 20:00 07/21/18 00:01 Temperature 98.2 F 97.5 F L Pulse Rate 69 80 83 Respiratory Rate 18 18 18 Blood Pressure 140/67 168/72 H 158/88 H Pulse Oximetry 97 96 94 L 07/21/18 04:40 07/21/18 08:00 Temperature 97.8 F 98.1 F Pulse Rate 85 84 Respiratory Rate 18 16 Blood Pressure 160/76 H 183/93 H Pulse Oximetry 97 98 Intake & Output 07/20/18 07/21/18 07/21/18 18:59 06:59 18:59 Intake Total 240 / 240 Output Total 0 / 0 Balance 0 / 0 240 / 240 Weight 45.359 kg 44.8 kg Intake: Oral 240 / 240 Output: Chest Tube Drainage 0 / 0 #1 Left Anterior 0 / 0 Other: # Voids 6 Weight On Admission 100 kg Narrative: GENERAL: Thin appearing 73 year old female in NAD, alert and oriented x3 SKIN: Warm and dry. HEAD: Atraumatic. Normocephalic. EYES: Pupils equal and round. No scleral icterus. No injection or drainage. ENT: No nasal bleeding or discharge. Mucous membranes pink and moist. NECK: Trachea midline. No JVD. CARDIOVASCULAR: Regular rate and rhythm. RESPIRATORY: No accessory muscle use. Clear to auscultation. Breath sounds equal bilaterally. GASTROINTESTINAL: Abdomen soft, slight diffuse tenderness, nondistended. Hepatic and splenic margins not palpable. MUSCULOSKELETAL: Extremities without clubbing, cyanosis, or edema. No obvious deformities. NEUROLOGICAL: Awake and alert. No obvious cranial nerve deficits. Motor grossly within normal limits. Five out of 5 muscle strength in the arms and legs. Normal speech. PSYCHIATRIC: Appropriate mood and affect; insight and judgment normal. Results - Labs CBC & Chem 7: 07/21/18 06:00 07/21/18 06:00 Labs: Laboratory Results - last 24 hr 07/21/18 07/21/18 06:00 06:00 WBC 5.6 RBC 3.46 L Hgb 10.9 L Hct 32.1 L MCV 92.6 MCH 31.4 MCHC 33.9 RDW 21.1 H Plt Count 349 D MPV 6.6 L Sodium 138 Potassium 3.1 L Chloride 104 Carbon Dioxide 27.1 Anion Gap 7 BUN 6 L Creatinine 0.80 Estimated GFR 70 L Random Glucose 85 Calcium 8.8 - Imaging Impressions Chest Tube Insertion 07/20/18 00:00 CONCLUSION: 1. Uncomplicated left chest tube placement as above. Lung Biopsy CT 07/20/18 00:00 CONCLUSION: 1. Uncomplicated CT guided core biopsy of a small left lower lobe pulmonary nodule. Postbiopsy images show a small pneumothorax. This will be followed with chest x-ray. Chest X-Ray 07/20/18 11:26 CONCLUSION: 2 cm left pneumothorax. Chest X-Ray 07/20/18 13:30 CONCLUSION: Increase in size of the left pneumothorax post lung biopsy. Chest X-Ray 07/20/18 14:45 CONCLUSION: Left thoracostomy tube in good position. Pneumothorax resolved. Chest X-Ray 07/21/18 00:36 CONCLUSION: Small left apical pneumothorax without tension Chest X-Ray 07/21/18 07:00 CONCLUSION: 1. Stable trace left apical pneumothorax and mild subcutaneous left chest wall emphysema. Caprini VTE Risk Assessment Caprini Risk Assessment Model: Point Value = 1 Point Value = 2 Point Value = 3 Point Value = 5 Age 41-60 Minor surgery BMI > 25 kg/m2 Swollen legs Varicose veins or History of unexplained or recurrent spontaneous Oral contraceptives or hormone replacement Sepsis (< 1 month) Serious lung disease, including pneumonia (< 1 month) Abnormal pulmonary function Acute myocardial infarction Congestive heart failure (< 1 month) History of inflammatory bowel disease Medical patient at bed rest Age 61-74 Arthroscopic surgery Major open surgery (> 45 min) Laparoscopic surgery (> 45 min) Malignancy Confined to bed (> 72 hours) Immobilizing plaster cast Central venous access Age >= 75 History of VTE Family history of VTE Factor V Leiden Prothrombin [id number] Lupus anticoagulant Anticardiolipin antibodies Elevated serum homocysteine Heparin-induced thrombocytopenia Other congenital or acquired thrombophilia Stroke (< 1 month) Elective arthroplasty Hip, pelvis, or leg fracture Acute spinal cord injury (< 1 month) Prophylaxis Regimen: Total Risk Factor Score Risk Level Prophylaxis Regimen 0-1 Low Early ambulation 2 Moderate Order ONE of the following: *Sequential Compression Device (SCD) *Heparin 5000 units SQ BID 3-4 Higher Order ONE of the following medications: *Heparin 5000 units SQ TID *Enoxaparin/Lovenox 40 mg SQ daily (WT < 150 kg, CrCl > 30 mL/min) *Enoxaparin/Lovenox 30 mg SQ daily (WT < 150 kg, CrCl > 10-29 mL/min) *Enoxaparin/Lovenox 30 mg SQ BID (WT < 150 kg, CrCl > 30 mL/min) AND/OR *Sequential Compression Device (SCD) 5 or more Highest Order ONE of the following medications: *Heparin 5000 units SQ TID (Preferred with Epidurals) *Enoxaparin/Lovenox 40 mg SQ daily (WT < 150 kg, CrCl > 30 mL/min) *Enoxaparin/Lovenox 30 mg SQ daily (WT < 150 kg, CrCl > 10-29 mL/min) *Enoxaparin/Lovenox 30 mg SQ BID (WT < 150 kg, CrCl > 30 mL/min) AND *Sequential Compression Device (SCD) Assessment and Plan - Assessment (1) Pneumothorax, post biopsy, left Code(s): J95.811 - Postprocedural pneumothorax Status: Acute - Plan Mrs. Pleitez is a 73-year-old female with a history of stage IV lung cancer s/ p chemo, lupus, COPD, hypothyroidism, hypertension, GERD, and PE presented to [facility] [place] for an outpatient CT-guided needle biopsy of the left lower lobe of her lung on 07/20/18. After the procedure was performed, the patient became short of breath and follow up chest X-ray revealed enlarging pneumothorax. A chest tube was placed in the night with resolution of the pneumothorax. She was admitted for observation. Pneumothorax, s/p Bx -SOB improved -Repeat CXR on 07/21 revealed Stable trace left apical pneumothorax and mild subcutaneous left chest wall emphysema. - Chest tube accidentally fell out overnight Hypertension -continue home meds -Vasotec PRN for >160 systolic, >90 diastolic Lupus -continue plaquenil Hypothyroid -continue home meds COPD -continue home meds Stage IV lung adenocarcinoma -follow up with [facility] outpatient Resume home medications for hypertension and hypothyroidism DVT prophylaxis: ambulation/SCDs/TEDs/chemical prophylaxis Code Status: Full Discharge Planning: If vitals stable, D/C later today, f/u with [facility] outpatient
[2018-07-21 11:57] VITALS: BP 154/92
[2018-07-21] MEDS ORDERED: Scopalamine 1.5 MG Patch T-DERMAL SCH (12:00)
[2018-07-21] MEDS ORDERED: Hydroxychloroquine 200 MG Tablet PO SCH (12:00)
--- NOTE | 2018-07-21 16:03 | P.HP ---
History of Present Illness Primary Care Physician: Юлия Redman MD Chief Complaint: Pneumothorax s/p lung biopsy History of Present Illness: Mrs. Pleitez is a 73-year-old female with a history of stage IV lung cancer s/ p chemo, lupus, COPD, hypothyroidism, hypertension, GERD, and PE presented to [facility] [place] for an outpatient CT-guided needle biopsy of the left lower lobe of her lung on 07/20/18. After the procedure was performed, the patient became short of breath and repeat chest X-ray revealed enlarging pneumothorax. A chest tube was placed in the night with resolution of the pneumothorax. The patient was admitted. She has had some sensations of nausea and abdominal cramping. She denies chest pain, shortness of breath, wheezing, headache, vision changes, fever, chills. Inpatient Certification: I certify that the inpatient services were ordered in accordance with Medicare regulations governing the order. This includes certification that hospital inpatient services are reasonable and necessary and in the case of services not specified as inpatient-only under 42 CFR 419.22(n), that they are appropriately provided as inpatient services in accordance to with the 2-midnight benchmark under 43 CFR 412.3(e) Estimated Total Length of Stay (Days): 1 Plans for Post Hospital Care: Home Review of Systems All other systems reviewed negative except as stated in HPI PMFSH - History History Provided By: Patient - Medical History Medical History: Medical History (Last Reviewed 07/21/18 @ 16:09 by Bernice Rolle MD) COPD (chronic obstructive pulmonary disease) Cataract fragments in eye following surgery Chemotherapy induced nausea and vomiting DVT (deep venous thrombosis) GERD (gastroesophageal reflux disease) HTN (hypertension) Hypothyroid Lung cancer Lupus - Surgical History Surgical History: Surgical History (Last Reviewed 07/21/18 @ 16:09 by Bernice Rolle MD) H/O foot surgery H/O hysterectomy with oophorectomy H/O lumbar discectomy Hx of tonsillectomy - Family History Family History: Family History (Last Reviewed 07/21/18 @ 16:09 by Bernice Rolle MD) Father Myocardial infarction Mother Stroke - Social History I have reviewed the patient's Social History: Yes - Tobacco History Second Hand Smoke Exposure: No Tobacco Use In Past 30 Days: No Smoking Status: Former smoker Tobacco Type: Cigarettes - Alcohol History How Often Do You Have a Drink Containing Alcohol: Never - Substance Use History Substance History: No History of Abuse - Travel History Recent Travel in the [place] Within the Last 8 Weeks: No Recent Travel Out of the Country Within the Last 8 Weeks: No - Immunization History Tetanus Immunization: Unsure Hx Influenza Vaccine This Season: No Medications and Allergies Active Medications: Active Medications Hydrocodone Bitart/Acetaminophen ([place] 5/325) 1 tab PO Q6H PRN PRN Reason: pain 2-10 Amlodipine Besylate (Norvasc) 5 mg PO DAILY [facility] Last Admin: 07/21/18 11:24 Dose: 5 mg Diphenoxylate HCl/Atropine (Lomotil) 1 tab PO Q6H PRN PRN Reason: Diarrhea Enalaprilat (Vasotec Inj) 2.5 mg IV.PUSH Q6H PRN PRN Reason: SBP>160, DBP>90 Heparin Sodium (Porcine) (Heparin Central Flush) 250 unit IV.FLUSH UNSCH PRN PRN Reason: SEE LABEL COMMENTS Heparin Sodium (Porcine) (Heparin Central Flush) 500 unit IV.FLUSH Q21D [facility] Last Admin: 07/20/18 18:32 Dose: Not Given Hydroxychloroquine Sulfate (Plaquenil) 200 mg PO BID [facility] Last Admin: 07/21/18 12:24 Dose: 200 mg Levothyroxine Sodium (Synthroid) 50 mcg PO DAILY@0600 [facility] Losartan Potassium (Cozaar) 50 mg PO DAILY [facility] Last Admin: 07/21/18 11:24 Dose: 50 mg Pantoprazole Sodium (Protonix) 40 mg PO DAILY [facility] Last Admin: 07/21/18 11:24 Dose: 40 mg Prednisone (Deltasone) 20 mg PO DAILY [facility] Last Admin: 07/21/18 11:24 Dose: 20 mg Prochlorperazine Maleate (Compazine) 10 mg PO Q6H PRN PRN Reason: NAUSEA/VOMITING Scopolamine (Transderm-Scop 1.5 Mg Patch.72hr) 1 patch T-DERMAL Q72H [facility] Last Admin: 07/21/18 12:25 Dose: Not Given Sodium Chloride (Ns Flush) 2 ml IV.FLUSH BID [facility] Last Admin: 07/21/18 09:09 Dose: Not Given Sodium Chloride (Ns Flush) 2 ml IV.FLUSH PRN PRN PRN Reason: FLUSH AFTER USING IV ACCESS Sodium Chloride (Ns Flush) 5 ml IV.FLUSH UNSCH PRN PRN Reason: SEE LABEL COMMENTS Sodium Chloride (Ns Flush) 5 ml IV.FLUSH Q21D [facility] Last Admin: 07/20/18 18:32 Dose: Not Given Allergies Allergy/AdvReac Type Severity Reaction Status Date / Time No Known Allergies Allergy Verified 07/20/18 08:55 Home Medications Medication Instructions Recorded Confirmed Type amlodipine [Norvasc] 5 mg PO DAILY 04/12/18 07/20/18 History hydroxychloroquine 200 mg PO BID 04/12/18 07/20/18 History levothyroxine 50 mcg PO DAILY 04/12/18 07/20/18 History losartan-hydrochlorothiazide 1 tab PO DAILY 04/12/18 07/20/18 History ondansetron HCl 8 mg PO TID PRN 04/27/18 07/20/18 History cholecalciferol (vitamin D3) 1,000 unit PO DAILY 05/31/18 07/20/18 History [Vitamin D3] cyanocobalamin (vitamin B-12) 1,000 mcg PO DAILY 05/31/18 07/20/18 History [Vitamin B-12] dexamethasone 4 mg PO Q12H PRN 07/20/18 07/20/18 History magnesium 500 mg PO DAILY 07/20/18 07/20/18 History prochlorperazine maleate 10 mg PO Q6-8H PRN 07/20/18 07/20/18 History Exam Vital signs: Vital Signs 07/20/18 16:10 07/20/18 20:00 07/21/18 00:01 Temperature 98.2 F 97.5 F L Pulse Rate 69 80 83 Respiratory Rate 18 18 18 Blood Pressure 140/67 168/72 H 158/88 H Pulse Oximetry 97 96 94 L 07/21/18 04:40 07/21/18 08:00 07/21/18 11:54 Temperature 97.8 F 98.1 F 98.1 F Pulse Rate 85 84 84 Respiratory Rate 18 16 16 Blood Pressure 160/76 H 183/93 H 154/92 H Pulse Oximetry 97 98 Intake & Output 07/20/18 07/21/18 07/21/18 18:59 06:59 18:59 Intake Total 240 / 240 Output Total 0 / 0 Balance 0 / 0 240 / 240 Weight 45.359 kg 44.8 kg Intake: Oral 240 / 240 Output: Chest Tube Drainage 0 / 0 #1 Left Anterior 0 / 0 Other: # Voids 6 Weight On Admission 100 kg Narrative: GENERAL: Thin appearing 73 year old female in NAD, alert and oriented x3 SKIN: Warm and dry. HEAD: Atraumatic. Normocephalic. EYES: Pupils equal and round. No scleral icterus. No injection or drainage. ENT: No nasal bleeding or discharge. Mucous membranes pink and moist. NECK: Trachea midline. No JVD. CARDIOVASCULAR: Regular rate and rhythm. RESPIRATORY: No accessory muscle use. Clear to auscultation. Breath sounds equal bilaterally. GASTROINTESTINAL: Abdomen soft, slight diffuse tenderness, nondistended. Hepatic and splenic margins not palpable. MUSCULOSKELETAL: Extremities without clubbing, cyanosis, or edema. No obvious deformities. NEUROLOGICAL: Awake and alert. No obvious cranial nerve deficits. Motor grossly within normal limits. Five out of 5 muscle strength in the arms and legs. Normal speech. PSYCHIATRIC: Appropriate mood and affect; insight and judgment normal. Results - Labs CBC & Chem 7: 07/21/18 06:00 07/21/18 06:00 Labs: Laboratory Results - last 24 hr 07/21/18 07/21/18 06:00 06:00 WBC 5.6 RBC 3.46 L Hgb 10.9 L Hct 32.1 L MCV 92.6 MCH 31.4 MCHC 33.9 RDW 21.1 H Plt Count 349 D MPV 6.6 L Sodium 138 Potassium 3.1 L Chloride 104 Carbon Dioxide 27.1 Anion Gap 7 BUN 6 L Creatinine 0.80 Estimated GFR 70 L Random Glucose 85 Calcium 8.8 - Imaging Impressions Chest X-Ray 07/21/18 00:36 CONCLUSION: Small left apical pneumothorax without tension Chest X-Ray 07/21/18 07:00 CONCLUSION: 1. Stable trace left apical pneumothorax and mild subcutaneous left chest wall emphysema. Caprini VTE Risk Assessment Caprini VTE Risk Assessment: No/Low Risk (score <= 1) Caprini Risk Assessment Model: Point Value = 1 Point Value = 2 Point Value = 3 Point Value = 5 Age 41-60 Minor surgery BMI > 25 kg/m2 Swollen legs Varicose veins or History of unexplained or recurrent spontaneous Oral contraceptives or hormone replacement Sepsis (< 1 month) Serious lung disease, including pneumonia (< 1 month) Abnormal pulmonary function Acute myocardial infarction Congestive heart failure (< 1 month) History of inflammatory bowel disease Medical patient at bed rest Age 61-74 Arthroscopic surgery Major open surgery (> 45 min) Laparoscopic surgery (> 45 min) Malignancy Confined to bed (> 72 hours) Immobilizing plaster cast Central venous access Age >= 75 History of VTE Family history of VTE Factor V Leiden Prothrombin [id number] Lupus anticoagulant Anticardiolipin antibodies Elevated serum homocysteine Heparin-induced thrombocytopenia Other congenital or acquired thrombophilia Stroke (< 1 month) Elective arthroplasty Hip, pelvis, or leg fracture Acute spinal cord injury (< 1 month) Prophylaxis Regimen: Total Risk Factor Score Risk Level Prophylaxis Regimen 0-1 Low Early ambulation 2 Moderate Order ONE of the following: *Sequential Compression Device (SCD) *Heparin 5000 units SQ BID 3-4 Higher Order ONE of the following medications: *Heparin 5000 units SQ TID *Enoxaparin/Lovenox 40 mg SQ daily (WT < 150 kg, CrCl > 30 mL/min) *Enoxaparin/Lovenox 30 mg SQ daily (WT < 150 kg, CrCl > 10-29 mL/min) *Enoxaparin/Lovenox 30 mg SQ BID (WT < 150 kg, CrCl > 30 mL/min) AND/OR *Sequential Compression Device (SCD) 5 or more Highest Order ONE of the following medications: *Heparin 5000 units SQ TID (Preferred with Epidurals) *Enoxaparin/Lovenox 40 mg SQ daily (WT < 150 kg, CrCl > 30 mL/min) *Enoxaparin/Lovenox 30 mg SQ daily (WT < 150 kg, CrCl > 10-29 mL/min) *Enoxaparin/Lovenox 30 mg SQ BID (WT < 150 kg, CrCl > 30 mL/min) AND *Sequential Compression Device (SCD) Assessment and Plan - Plan Mrs. Pleitez is a 73-year-old female with a history of stage IV lung cancer s/ p chemo, lupus, COPD, hypothyroidism, hypertension, GERD, and PE presented to [facility] [place] for an outpatient CT-guided needle biopsy of the left lower lobe of her lung on 07/20/18. After the procedure was performed, the patient became short of breath and follow up chest X-ray revealed enlarging pneumothorax. A chest tube was placed in the night with resolution of the pneumothorax. She was admitted for observation. Pneumothorax, s/p Bx -SOB improved -Repeat CXR on 07/21 revealed Stable trace left apical pneumothorax and mild subcutaneous left chest wall emphysema. - Chest tube accidentally fell out overnight Hypertension -continue home meds -Vasotec PRN for >160 systolic, >90 diastolic Lupus -continue plaquenil Hypothyroid -continue home meds COPD -continue home meds Stage IV lung adenocarcinoma -follow up with [facility] outpatient Resume home medications for hypertension and hypothyroidism DVT prophylaxis: ambulation/SCDs/TEDs/chemical prophylaxis Code Status: Full Discharge Planning: If vitals stable, D/C later today, f/u with [facility] outpatient DC plan: Patient improved significantly Cleared by consultatns for DC. BP better controlled Ambulated in the room without any problems sattign well on room air\DC home in [place] conditon to jan kelsey as OP with PCP and consultants Meds per med recs Activity ad p[place] Diet Healthy heart diet
[2018-07-21] MEDS: Heparin Central Flush 100 UNIT/ML 5 ML Vial IV.FLUSH SCH (17:11)
[2018-07-22] MEDS ORDERED: Levothyroxine 50 MCG Tablet PO SCH (06:00)
== END 2018-07-21 19:49 | disposition home or self-care (01) ==
LOC: HRAD 08:33 → HRIP 08:40 → N04 17:12
PROVIDERS: ADMIT Radiology Body Imaging; ATTEND Radiology Body Imaging